=== PATIENT | male | born 1945 | race Caucasian/White ===

== ENCOUNTER 2016-07-14 11:28 | Inpatient (IN) | payer OTHER, MEDICARE ==
[~2016-07-14] VITALS: Ht 175.3 cm; Wt 81.6 kg
[~2016-07-14 11:28] MED LIST: ASPIRIN EC81 M1 PO; ENSURE LIQUID237 ML PO; FLOMAX0.4 M1 PO; LEVEMIR FL100 UNIT/1 SC; LIPITOR10 M1 PO; NOVOLOG MI100 UNIT/2 SC; NOVOLOG100 UNIT/2 SC; SERTRALINE HCL50 MG PO; SYNTHROID25 MCG PO; SYNTHROID50 MCG PO; VITAMIN D31000 UNI1 PO; ZOLOFT50 M1 PO
--- NOTE | 2016-07-14 11:54 | ED GI/GU/ABDOMINAL COMPLAINT ---
History of Present Illness General Chief Complaint: Male Genitourinary Problems Stated Complaint: UNABLE TO VOID Source: patient, old records Exam Limitations: no limitations Allergies Coded Allergies: NO KNOWN ALLERGIES (10/26/15) Reconcile Medications Aspirin (Ecotrin*) 81 MG TABLET.DR 2 TAB PO DAILY HEART/BLOOD (Reported) Atorvastatin Calcium (Lipitor) 10 MG TABLET 1 TAB PO DAILY HYPERLIPIDEMIA Insulin Aspart Protam & Aspart (Novolog Mix 70-30 Vial) 100 UNIT/ML (70-30) VIAL 20 UNITS SC QAM DM (Reported) Insulin Aspart Protam & Aspart (Novolog Mix 70-30 Vial) 100 UNIT/ML (70-30) VIAL 10 UNITS SC QPM DM (Reported) Levothyroxine Sodium 75 MCG TABLET 1 TAB PO DAILY AC THYROID (Reported) Sertraline HCl (Zoloft) 50 MG TABLET 1 TAB PO DAILY MENTAL HEALTH (Reported) Tamsulosin HCl (Flomax) 0.4 MG CAP.ER.24H 1 TAB PO DAILY PROSTATE (Reported) Triage Note: PT TO ED WITH C/O "I JUST PEE A FEW DROPS". PT ALSO STATING "I THINK MY SUGAR IS NO GOOD EITHER". ACCUCHECK: 400 "I HAVEN'T HAD MY INSULIN IN A COUPLE OF WEEKS, I DON'T HAVE THE MONEY FOR IT". PT VERY WEEPY IN TRIAGE. Triage Nurses Notes Reviewed? yes Onset: Abrupt Duration: week(s): (3), constant Timing: recent history Quality/Severity: URNGECY Severity Numbers: 5 Location: urethral Radiation: no radiation Activities at Onset: none Prior Abdominal Problems: similar symptoms No Modifying Factors: none HPI: 70-year-old male type I diabetic hypothyroid depression presents emergency room for evaluation complain of urinary urgency and retention for the past 3 weeks. The patient reports history of similar episodes earlier this year for which required a Lemus catheter. The patient states that he is having difficulty urinating up until when he was in waiting room when he was able to P on his own. He states at times he felt diaphoretic and nauseous. He states he's been without his medications for the past 1 month because he cannot afford them. He denies abdominal pain chest pain palpitations shortness of breath fever or chills. No hematuria no dysuria no penile or scrotal pain (HALINA SAEZ) Vital Signs & Intake/Output Vital Signs & Intake/Output Vital Signs Date Time Temp Pulse Resp B/P Pulse O2 O2 Flow FiO2 Ox Delivery Rate 07/14 1257 Room Air 07/14 1137 98.8 87 20 174/84 97 Room Air Room Air Past History Travel History Traveled to [place] past 21 day No Medical History Any Pertinent Medical History? 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 No (HALINA SAEZ) Review of Systems Review of Systems Constitutional: Reports: see HPI. All Other Systems: Reviewed and Negative Comments Review of systems: See HPI, All other systems negative. Constitutional, no chills no fever, no malaise HEENT: No visual changes no sore throat no congestion Cardiovascular: No chest pain , no palpitation Skin, no rashes, no change in skin Respiratory: No dyspnea no cough no sputum GI: nausea no vomiting, no diarrhea, no bloating/constipation : SEE HPI Muscle skeletal: No joint pain, no back pain, no neck pain, Neurologic: No numbness no confusion, no headache Psych: No stress Heme/endocrine: No bruising no bleeding Immunology: No lymphadenopathy (HALINA SAEZ) Physical Exam Physical Exam General Appearance: well developed/nourished, no apparent distress, alert Gastrointestinal: soft Comments: Well-developed well-nourished person in no acute distress HEENT: Normal EENT exam; PERRL, EOMI, HEAD is atraumatic. moist mucous membranes. Neck: Supple,normal range of motion Back: Nontender, no CVA tenderness. Full range of motion Cardiovascular: Regular rate and rhythms no murmurs rubs Respiratory: No respiratory distress. Patient speaking in full complete sentences. Breath sounds clear to auscultation bilaterally: NO W/R/R Abdomen: Soft, nontender nondistended, no appreciable organomegaly. Normal bowel sounds. No rebound/guarding, Extremity: No edema, full range of motion of extremities Neuro: Alert oriented x3, motor sensory normal, There were no obvious focal neurologic abnormalities. Skin: No appreciable rash on exposed skin, skin is warm and dry. Psych: Mood and affect is normal, memory and judgment is normal. Core Measures ACS in differential dx? No Severe Sepsis Present: No Septic Shock Present: No (HALINA SAEZ) Progress Differential Diagnosis: pyelonephritis, DKA,HHS, MALIGNANCY, BPH, NEUROGENIC BLADDER, GIUILANA, ELECTROLYTE ABNORMALITY Initial ED EKG: normal intervals, normal p-waves, normal QRS complex, normal sinus rhythm (80), NSR (HALINA SAEZ) Plan of Care: Orders Procedure Date/time Status Consistent Carbohydrate 1 07/15 B Active Patient Data 07/14 1621 Active Misc Message 07/14 1605 Active ED Holding Orders 07/14 1605 Active Admit to inpatient 07/14 1605 Active Vital Signs 07/14 1605 Active Code Status 07/14 1605 Active FingerStick- Glucose 07/14 1529 Active Intake & Output 07/14 1514 Active BASIC METABOLIC PANEL 07/14 1500 Complete Add-on Test (ER Only) 07/14 1357 Active EKG 07/14 1357 Active Add-on Test (ER Only) 07/14 1352 Active CULTURE,URINE 07/14 1304 Active TROPONIN LEVEL 07/14 1302 Complete URINALYSIS 07/14 1151 Complete SERUM OSMOLALITY 07/14 1151 Complete COMPREHENSIVE METABOLIC PANEL 07/14 1151 Complete CBC WITHOUT DIFFERENTIAL 07/14 1151 Complete ACETONE 07/14 1151 Complete Laboratory Tests 07/14/16 1532: Anion Gap 12, Estimated GFR > 60, BUN/Creatinine Ratio 20.0, Glucose 241 H, Calcium 8.8 07/14/16 1304: Urine Color YEL, Urine Clarity HAZY H, Urine pH 6.0, Ur Specific [place] 1.010, Urine Protein NEG, Urine Ketones 40 H, Urine Nitrite POS H, Urine Bilirubin NEG, Urine Urobilinogen 0.2, Ur Leukocyte Esterase SMALL H, Ur Microscopic SEDIMENT EXAMINED, Urine RBC 5-10 H, Urine WBC 25-50 H, Ur Epithelial Cells FEW, Urine Hemoglobin MOD H, Urine Glucose >=1000 H 07/14/16 1302: Anion Gap 21 H, Estimated GFR > 60, BUN/Creatinine Ratio 20.0, Glucose 456 H, Serum Osmolality 299 H, Calcium 9.5, Total Bilirubin 0.8, AST 19, ALT 25, Alkaline Phosphatase 124, Troponin I < 0.01, Total Protein 7.3, Albumin 4.0, Globulin 3.3, Albumin/Globulin Ratio 1.2, CBC w Diff NO MAN DIFF REQ, RBC 4.74, MCV 81.1, MCH 27.9, RDW 13.1, MPV 7.6, Gran % 72.2, Lymphocytes % 21.8, Monocytes % 5.1, Eosinophils % 0.6, Basophils % 0.3, Absolute Granulocytes 4.9, Absolute Lymphocytes 1.5, Absolute Monocytes 0.3, Absolute Eosinophils 0, Absolute Basophils 0, PUBS MCHC 34.4, Acetone Level POSITIVE AT 1:16 DIL Microbiology 07/14 1304 URINE ROUT: Urine Culture - RECD IV fluids running labs ordered patient is able to urinate on his own at this time Corrected sodium 139 Discussed the patient all his lab results insulin 8 units subcutaneous ordered case discussed with Dr. Ring who evaluated the patient agrees with plan. We'll admit the patient the hospitalist case was discussed with DR AGUILAR (HALINA SAEZ) Departure Departure Time of Disposition: 1402 Disposition: STILL A PATIENT Condition: Stable Clinical Impression Primary Impression: DKA (diabetic ketoacidoses) Referrals: VASQUEZ KOHLER,VASILE Chris (PCP/Family) Referred to [facility] as new patient No Departure Forms: Customer Survey General Discharge Information Admission Note Spoke With: JANE AGUILAR MD Documentation of Exam: Documentation of any treatments & extenuating circumstances including Concerns Regarding Discharge (functional status, medication knowledge or non-compliance, living conditions, etc.) that warrant an admission rather than observation: IV INSULIN, TREND LABS, CONTINUING CARE CONSULT GIVEN PT HAS BEEN WITHOOUT HIS MEDS X 3 WEEKS, PREMATURE DISCHARGE WOULD BE MEDICALLY HARMFUL (HALINA SAEZ) PA/ASPHALT PATCHER Co-Sign Statement Statement: ED Attending supervision documentation- [X] I saw and evaluated the patient. I have also reviewed all the pertinent lab results and diagnostic results. I agree with the findings and the plan of care as documented in the PA's/ASPHALT PATCHER's documentation. [] I have reviewed the ED Record and agree with the PA's/ASPHALT PATCHER's documentation. [] Additions or exceptions (if any) to the PAs/ASPHALT PATCHER's note and plan are summarized below: [] (BRITTANY KOHLER,[place]OR[place] Carranza)
[2016-07-14 13:34] LABS: ABSOLUTE BASOPHIL COUNT 0 /CUMM (0.0-0.2); ABSOLUTE EOSINOPHIL COUNT 0 /CUMM (0.0-0.7); ABSOLUTE GRANULOCYTE CT 4.9 /CUMM (1.4-6.5); ABSOLUTE LYMPH COUNT 1.5 /CUMM (1.2-3.4); ABSOLUTE MONOCYTE COUNT 0.3 /CUMM (0.10-0.60); BASOPHIL % 0.3 % (0.0-2.0); EOSINOPHIL % 0.6 % (0-5); GRANULOCYTE % 72.2 % (42.2-75.2); HEMATOCRIT 38.5 % (42-52); MEAN CORPUSCULAR HGB 27.9 PG (27.0-31.0); MEAN CORPUSCULAR HGB CONC 34.4 G/DL (33.0-37.0); MEAN CORPUSCULAR VOLUME 81.1 FL (80.0-94.0); MEAN PLATELET VOLUME 7.6 FL (7.4-10.4); PLATELET COUNT 287 /CUMM (130-400); RBC DISTRIBUTION WIDTH 13.1 % (11.5-14.5); RED BLOOD CELL CT 4.74 /CUMM (4.70-6.10); WHITE BLOOD CELL COUNT 6.8 /CUMM (4.8-10.8)
[2016-07-14] MEDS ORDERED: LEVOTHYROXINE75 MCG PO (15:42)
[2016-07-14] MEDS ORDERED: NOVOLOG MI100 UNIT/1 SC ×2 (15:43)
--- NOTE | 2016-07-14 16:21 | History & Physical ---
ALEJANDRINA MIN 07/14/16 1621: General Information and HPI MD Statement: I have seen and personally examined DELIO SKAGGS and documented this H&P. The patient is a 70 year old M who presented with a patient stated chief complaint of increased urinary frequency Source of Information: family, old records Exam Limitations: no limitations History of Present Illness: 69-year-old gentleman with past medical history of type 1 diabetes, hypothyroidism, BPH, depression came to Ed for evaluation of increased frequency of urination. States that he has noticed a decrease in urination since the past 2 weeks. Today there has been increased frequency of urination. He is compliant with a diabetic diet. Reports non complaince with diabetic meds since the past three weeks. He did not check his fingersticks at home either. denies abdominal pain, dysuria, fever, chills, shortness of breath, nausea or vomitting. Allergies/Medications Allergies: Coded Allergies: NO KNOWN ALLERGIES (10/26/15) Home Med list Aspirin (Ecotrin*) 81 MG TABLET.DR 2 TAB PO DAILY HEART/BLOOD (Reported) Atorvastatin Calcium (Lipitor) 10 MG TABLET 1 TAB PO DAILY HYPERLIPIDEMIA Insulin Aspart Protam & Aspart (Novolog Mix 70-30 Vial) 100 UNIT/ML (70-30) VIAL 20 UNITS SC QAM DM (Reported) Insulin Aspart Protam & Aspart (Novolog Mix 70-30 Vial) 100 UNIT/ML (70-30) VIAL 10 UNITS SC QPM DM (Reported) Levothyroxine Sodium 75 MCG TABLET 1 TAB PO DAILY AC THYROID (Reported) Sertraline HCl (Zoloft) 50 MG TABLET 1 TAB PO DAILY MENTAL HEALTH (Reported) Tamsulosin HCl (Flomax) 0.4 MG CAP.ER.24H 1 TAB PO DAILY PROSTATE (Reported) Compliance With Home Meds: POOR Past History Travel History Traveled to [place] past 21 day No Medical History Neurological: NONE EENT: NONE Cardiovascular: NONE Respiratory: NONE Gastrointestinal: NONE Hepatic: NONE Renal: benign prost hyperplasia Musculoskeletal: NONE Psychiatric: depression Endocrine: hypothyroidism, DM type 1 Blood Disorders: NONE 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 Cardiovascular: Denies: chest pain, edema, orthopena, palpitations, peripheral edema, syncope. Respiratory: Denies: cough, hemoptysis, orthopnea, short of breath, sputum production, stridor, wheezing. GI: Denies: abdominal pain, bloating, constipation, diarrhea, distention, bowel incontinence, melena, nausea, bloody stool, changes in stool, vomiting, steatorrhea. Genitourinary: Denies: discharge, dysuria, frequency, hematuria, hesitation, nocturia, pain, urgency. Exam & Diagnostic Data Last 24 Hrs of Vital Signs/I&O Vital Signs Date Time Temp Pulse Resp B/P Pulse O2 O2 Flow FiO2 Ox Delivery Rate 07/14 2219 97.6 68 20 120/50 96 Room Air 07/14 1842 97.4 62 20 124/60 96 Room Air 07/14 1722 96.8 66 18 120/65 98 Room Air 07/14 1257 Room Air 07/14 1137 98.8 87 20 174/84 97 Room Air Room Air Intake & Output 07/14 1600 07/14 0800 07/14 0000 Intake Total 1000 Output Total 375 Balance 625 Intake, IV 1000 Output, Urine 375 Patient 180 lb Weight Physical Exam General Appearance Alert, Oriented X3, Cooperative, No Acute Distress HEENT Atraumatic, PERRLA, EOMI, Mucous Membr. moist/pink Cardiovascular Regular Rate, Normal S1, Normal S2 Lungs Clear to Auscultation, Normal Air Movement Abdomen Normal Bowel Sounds, Soft, No Tenderness Extremities No Edema Assessment/Plan Assessment: 69-year-old gentleman with past medical history of type 1 diabetes, hypothyroidism, BPH, depression came to Ed for evaluation of increased frequency of urination,found to have Sugar level of 465 with anion gap of 21 which improved after iVF and insuin As Ranked By This Provider Problem List: 1. Hyperglycemia Assessment/Plan monitor FS will start basal insuin and ISS Endo consulted obtain HA1c 2. UTI (urinary tract infection) Assessment/Plan will start IV Ceftriaxone pending cultures 3. BPH (benign prostatic hyperplasia) Assessment/Plan continue flomax obtain post-residual bladder scan urology informed 4. DVT prophylaxis 5. DNI (do not intubate) 6. DNR (do not resuscitate) Core Measures/Miscellaneous Acute Coronary Syndrome ACS Diagnosis: No Cerebrovascular Accident CVA/TIA Diagnosis: No Congestive Heart Failure CHF Diagnosis: No Venous Thromboembolism VTE Risk Factors: Acute medical illness, Age > 40 VTE Prophylaxis Ordered Inpt: Pharm- Lovenox No Mech VTE prophylaxis d/t: No contraindications No VTE Pharm Prophylaxis d/t: No contraindications VTE Diagnosis: No VTE Type: NONE VTE Confirmed by (Test): NONE Severe Sepsis Severe Sepsis Present: No Septic Shock Septic Shock Present: No Miscellaneous Documentation Attending Case Discussed With: JANE AGUILAR MD Primary Care Physician: VASILE OVALLE MD Patient sees these Specialists Dr. Hall Level of Patient Care: General Medicine ROSLYN JIM MD 07/14/16 2000: Resident Review Statement Resident Statement: examined this patient, discussed with internet retailer, agreed with internet retailer Other Findings: Is a 70-year-old male with past medical history of type 1 diabetes, BPH, depression, hypothyroidism who presented to the ED with complaints of increased frequency of urination and weakness. He claims that he has not been using his insulin because of inability to afford it. He last saw Dr. hall 2 months ago and was scheduled to see her today. In the ED, labs showed a high blood sugar level of 465 with anion gap of 21. Patient was given 8 units of insulin and fluids. Repeat BEP showed a closed and last blood sugar level was in the 200s. Problem list: * Hyperglycemia * Urinary tract infection * Hypokalemia * Hypothyroidism * Depression * BPH Plan: * Admit to general medicine. * Endocrine consult. Dr. Hall called back and wanted the patient on 10 units of Levemir twice a day and NovoLog sliding scale. * Ceftriaxone for UTI. Urine cultures * Pain pathway: Tylenol when necessary * DVT prophylaxis: SubQ Lovenox * Code Status: Full Code JOLEEN HENDERSON 07/14/16 2252: Attending MD Review Statement Attending Statement Attending MD Statement: examined this patient, discuss w/resident/PA/CASEWORKER, agreed w/resident/PA/CASEWORKER, reviewed EMR data (avail), reviewed images, amended to note Attending Assessment/Plan: CC : elevated Blood glucose PMHx: DM (insulin dependent), hypothyroidism, depression, BPH Patient came to ER for urinary complaints and elevated blood sugar. Patient says that he cannot afford insulin and was not taking insulin since 1 month. He has been having chronic urinary complaints since many months. Initially he had urinary retention for which he had Lemus catheter in place, then by urologist. Catheter fell off by itself about 3 months back and patient did not follow-up with urologist thereafter. Patient has been experiencing increased frequency of urination during the night, waking up every hour. He denies any burning irritation in urine or lower abdominal pain. He had difficulty voiding in last couple of days but today it is much better. His appetite was markedly decreased and had some fatigue along with nausea. No fevers or chills. 14 point ROS negative. Other than insulin, which he cannot afford, he had been compliant with his rest of the medications including tamsulosin, levothyroxine, sertraline. Vitals: Afebrile, RR, HR, BP, post O2 saturation within acceptable range, on room air. On examination: A O 3, no apparent distress, no respiratory distress, no JVD, no lymphadenopathy, mucosa moist pink, no dependent edema. CVS: S1-S2, RRR. RS : Clear air entry bilaterally present. Abdomen: Soft, NT, ND, bowel sounds present. No focal neurological deficit. Genitourinary examination unremarkable. Labs: Hemoglobin 13.2, and sodium 128 on presentation improved to 132. Patient had an anion gap of 21 improved to 12. On presentation his glucose was 456 improved with subcutaneous insulin to 241, creatinine, troponin, liver function tests normal. UA shows evidence of nitrites and leukocyte esterase. Urine positive for acetone. A and P #1 DKA: At presentation, improved with IV hydration and insulin. Anion gap Closed blood sugar better controlled. #2 DM, insulin dependence: Uncontrolled secondary to Noncompliance secondary because of cost issues, resume insulin ( basal and bolus) according to Dr. hall. Check CBC BMP in a.m. #3 UA positive for UTI: Patient does not have any burning, irritation but complains of increased frequency and has urinary retention intermittently secondary to BPH, given in setting of diabetes and would suggest to get urine culture and start ceftriaxone. Can be changed to by mouth antibiotics according to the cultures, upon discharge. # 4 urinary complaints: Patient had known BPH, GERD post void bladder scan, inform urology about patient being here. Patient may need a Lemus catheter if retaining on bladder scan. #5 DVT prophylaxis with Lovenox. Adequate pain control with pain pathway.
[2016-07-14 18:42] VITALS: BP 124/60
[2016-07-14 22:19] VITALS: BP 120/50
--- NOTE | 2016-07-14 22:55 | Admission Certification ---
Admission Certification Certification Statement - As attending physician, I certify that at the time of - admission, based on clinical presentation, severity of - symptoms, need for further diagnostic testing and - therapeutic interventions, and risk of adverse outcomes - without in-hospital treatment, in my clinical assessment, - this patient requires an acute hospital stay for a minimum - of two nights or longer. I have also considered psychsocial - factors such as support system, advanced age, financial - issues, cognitive issues, and failed out-patient treatments, - past re-admission history, safety of patient, and lack of - compliance as applicable. Specific rationale supporting this admission is: Hyperglycemia with insulin-dependent diabetes, urinary complaints with history of BPH along with UTI
--- NOTE | 2016-07-15 06:26 | PN- Housestaff ---
DIANDRA KOHLER,ROSLYN 07/15/16 0622: Subjective Follow-up For: Hyperglycemia Review of Systems Constitutional: Reports: see HPI. Objective Last 24 Hrs of Vital Signs/I&O Vital Signs Date Time Temp Pulse Resp B/P Pulse O2 O2 Flow FiO2 Ox Delivery Rate 07/14 2219 97.6 68 20 120/50 96 Room Air 07/14 1842 97.4 62 20 124/60 96 Room Air 07/14 1722 96.8 66 18 120/65 98 Room Air 07/14 1257 Room Air 07/14 1137 98.8 87 20 174/84 97 Room Air Room Air Intake & Output 07/15 0800 07/15 0000 07/14 1600 Intake Total 400 1000 Output Total 400 375 Balance 0 625 Intake, IV 200 1000 Intake, Oral 200 Output, Urine 400 375 Patient 180 lb 180 lb Weight Physical Exam General Appearance: Alert, Oriented X3, Cooperative, No Acute Distress Cardiovascular: Regular Rate, Normal S1, Normal S2, No Murmurs Lungs: Clear to Auscultation, Normal Air Movement Abdomen: Normal Bowel Sounds, Soft, No Tenderness Neurological: Normal Speech, Normal Tone, Sensation Intact Extremities: No Edema Current Medications: Current Medications Sig/Marleny Start time Last Medication Dose Route Stop Time Status Admin Acetaminophen 650 MG Q4P PRN 07/14 2100 AC 07/14 PO 2100 Aspirin Buffered 162 MG DAILY 07/15 1000 AC PO Atorvastatin Calcium 10 MG DAILY 07/15 1000 AC PO Enoxaparin Sodium 40 MG DAILY 07/15 1000 AC SC Insulin Aspart 0 TIDAC/HS 07/14 2100 AC SC Insulin Detemir 10 UNITS BID 07/14 2200 AC 07/14 SC 2135 Insulin Human Regular 8 UNITS ONCE ONE 07/14 1400 DC 07/14 SC 07/14 1401 1412 Levothyroxine Sodium 0.075 MG DAILY AC 07/15 0700 AC 07/15 PO 0553 Patient Medication 1 UNIT ONE NR 07/14 1915 DC Teaching ED 07/14 1930 Potassium Chloride 40 MEQ Q10H 07/14 191 AC 07/15 Sodium Chloride 1,000 ML IV 07/15 1514 0556 Potassium Chloride 40 MEQ .Q10H 07/14 1845 DC Sodium Chloride 1,000 ML IV 07/15 1444 Sertraline HCl 50 MG DAILY 07/15 1000 AC PO Sodium Chloride 1,000 ML BOLUS ONE 07/14 1400 DC 07/14 IV 07/14 1459 1412 Sodium Chloride 1,000 ML BOLUS ONE 07/14 1400 DC 07/14 IV 07/14 1459 1519 Tamsulosin HCl 0.4 MG DAILY 07/15 1000 AC PO Last 24 Hrs of Lab/Michael Results Last 24 Hrs of Labs/Mics: Laboratory Tests 07/14/16 1532: Anion Gap 12, Estimated GFR > 60, BUN/Creatinine Ratio 20.0, Glucose 241 H, Calcium 8.8, TSH 3.290 07/14/16 1304: Urine Color YEL, Urine Clarity HAZY H, Urine pH 6.0, Ur Specific [place] 1.010, Urine Protein NEG, Urine Ketones 40 H, Urine Nitrite POS H, Urine Bilirubin NEG, Urine Urobilinogen 0.2, Ur Leukocyte Esterase SMALL H, Ur Microscopic SEDIMENT EXAMINED, Urine RBC 5-10 H, Urine WBC 25-50 H, Ur Epithelial Cells FEW, Urine Hemoglobin MOD H, Urine Glucose >=1000 H 07/14/16 1302: Anion Gap 21 H, Estimated GFR > 60, BUN/Creatinine Ratio 20.0, Glucose 456 H, Serum Osmolality 299 H, Calcium 9.5, Total Bilirubin 0.8, AST 19, ALT 25, Alkaline Phosphatase 124, Troponin I < 0.01, Total Protein 7.3, Albumin 4.0, Globulin 3.3, Albumin/Globulin Ratio 1.2, CBC w Diff NO MAN DIFF REQ, RBC 4.74, MCV 81.1, MCH 27.9, RDW 13.1, MPV 7.6, Gran % 72.2, Lymphocytes % 21.8, Monocytes % 5.1, Eosinophils % 0.6, Basophils % 0.3, Absolute Granulocytes 4.9, Absolute Lymphocytes 1.5, Absolute Monocytes 0.3, Absolute Eosinophils 0, Absolute Basophils 0, PUBS MCHC 34.4, Acetone Level POSITIVE AT 1:16 DIL Microbiology 07/14 1304 URINE ROUT: Urine Culture - RECD Lines/Diet/Fluids Lines: peripheral lines Assessment/Plan Assessment: Is a 70-year-old male with past medical history of type 1 diabetes, BPH, depression, hypothyroidism who presented to the ED with complaints of increased frequency of urination and weakness. He claims that he has not been using his insulin because of inability to afford it. He last saw Dr. hall 2 months ago and was scheduled to see her today. In the ED, labs showed a high blood sugar level of 465 with anion gap of 21. Patient was given 8 units of insulin and fluids. Repeat BEP showed a closed and last blood sugar level was in the 200s. Problem list: * Hyperglycemia * Urinary tract infection * Hypokalemia * Hypothyroidism * Depression * BPH Plan: * Last fingersticks showed 196, 196, 145. * Continue Levemir 10 ubnits BID with Novolog Sliding scale per Dr. Hall * Afebrile overnight. Ceftriaxone IV for UTI. Urine cultures pending. * Continue home statin, LT4 and sertraline. * Pain pathway: Tylenol when necessary * DVT prophylaxis: SubQ Lovenox * Code Status: Full Code Problem List: 1. Hyperglycemia Pain Ratin Pain Location: None Pain Goal: Pain 4 or less Pain Plan: Per EMR Tomorrow's Labs & Rationales: BEP DVT/Prophylaxis: pharmacological JOHNNY KOHLER[facility] 07/15/16 1325: Attending MD Review Statement Attending Statement Attending MD Statement: examined this patient, discuss w/resident/PA/UNDERWRITING CLERKS SUPERVISOR, agreed w/resident/PA/UNDERWRITING CLERKS SUPERVISOR, reviewed EMR data (avail), discussed with nursing, discussed with case mgmt, amended to note Attending Assessment/Plan: Patient seen and examined. Resting comfortably and not in acute distress. His blood glucose level has improved this morning. He offers no complaints. Physical exam is currently benign. We will continue him on his current insulin regimen and will follow-up with the endocrinology service for further recommendations. Patient reports that he was unable to obtain his insulin at home due to insurance reasons. We'll follow-up with the case management service prior to discharge.
[2016-07-15 07:24] VITALS: BP 132/76
[2016-07-15 08:09] LABS: ABSOLUTE BASOPHIL COUNT 0 /CUMM (0.0-0.2); ABSOLUTE EOSINOPHIL COUNT 0.1 /CUMM (0.0-0.7); ABSOLUTE GRANULOCYTE CT 3.8 /CUMM (1.4-6.5); ABSOLUTE LYMPH COUNT 1.6 /CUMM (1.2-3.4); ABSOLUTE MONOCYTE COUNT 0.5 /CUMM (0.10-0.60); BASOPHIL % 0.6 % (0.0-2.0); GRANULOCYTE % 62.8 % (42.2-75.2); HEMATOCRIT 36.4 % (42-52); MEAN CORPUSCULAR HGB 28.4 PG (27.0-31.0); MEAN CORPUSCULAR HGB CONC 34.3 G/DL (33.0-37.0); MEAN CORPUSCULAR VOLUME 82.9 FL (80.0-94.0); MEAN PLATELET VOLUME 7.7 FL (7.4-10.4); PLATELET COUNT 276 /CUMM (130-400); RBC DISTRIBUTION WIDTH 13.2 % (11.5-14.5); RED BLOOD CELL CT 4.39 /CUMM (4.70-6.10); WHITE BLOOD CELL COUNT 6.1 /CUMM (4.8-10.8)
--- NOTE | 2016-07-15 13:44 | Cons- Endocrinology ---
General Information and HPI Consulting Request Date of Consult: 07/15/16 Requested By: medical team Reason for Consult: management of DM Source of Information: patient, old records Exam Limitations: no limitations History of Present Illness: 69-year-old gentleman with past medical history of type 1 diabetes, hypothyroidism, BPH, depression came to Ed for evaluation of having difficulty in urination. He was found to have glucose level of > 400. As per patient, due to financial situation, he was off on insulin for a while. In hospital, he was put on Levemir 10 units twice a day, Novolog coverage before meals and Novolog coverage at bedtime. In addition, he is on NS with KCL at 100 ml/hour. His FSGs were 402, 310, 145, 196, 202 and 131. Allergies/Medications Allergies: Coded Allergies: NO KNOWN ALLERGIES (10/26/15) Home Med List: Aspirin (Ecotrin*) 81 MG TABLET.DR 2 TAB PO DAILY HEART/BLOOD (Reported) Atorvastatin Calcium (Lipitor) 10 MG TABLET 1 TAB PO DAILY HYPERLIPIDEMIA Insulin Aspart Protam & Aspart (Novolog Mix 70-30 Vial) 100 UNIT/ML (70-30) VIAL 20 UNITS SC QAM DM (Reported) Insulin Aspart Protam & Aspart (Novolog Mix 70-30 Vial) 100 UNIT/ML (70-30) VIAL 10 UNITS SC QPM DM (Reported) Levothyroxine Sodium 75 MCG TABLET 1 TAB PO DAILY AC THYROID (Reported) Sertraline HCl (Zoloft) 50 MG TABLET 1 TAB PO DAILY MENTAL HEALTH (Reported) Tamsulosin HCl (Flomax) 0.4 MG CAP.ER.24H 1 TAB PO DAILY PROSTATE (Reported) Review of Systems Review of Systems Constitutional: Reports: see HPI. Cardiovascular: Denies: chest pain. Respiratory: Denies: orthopnea, short of breath. GI: Denies: abdominal pain. Genitourinary: Reports: see HPI. Hematologic/Endocrine: Reports: see HPI. 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 Home Services at Home: None Smoking Status: Never Smoked ETOH Use: denies use Illicit Drug Use: denies illicit drug use Exam & Diagnostic Data Last 24 Hrs of Vital Signs/I&O Vital Signs Date Time Temp Pulse Resp B/P Pulse O2 O2 Flow FiO2 Ox Delivery Rate 07/15 0921 72 132/80 07/15 0724 97.6 66 18 132/76 98 Room Air 07/14 2219 97.6 68 20 120/50 96 Room Air 07/14 1842 97.4 62 20 124/60 96 Room Air 07/14 1722 96.8 66 18 120/65 98 Room Air Intake & Output 07/15 1600 07/15 0800 07/15 0000 Intake Total 900 400 Output Total 525 400 Balance 375 0 Intake, IV 800 200 Intake, Oral 100 200 Output, Urine 525 400 Patient 180 lb Weight Physical Exam General Appearance: no apparent distress Neck: normal inspection Respiratory: lungs clear Cardiovascular: regular rate/rhythm Gastrointestinal: normal bowel sounds, soft, non-tender Extremities: no edema Labs/Michael Results: Laboratory Tests 07/15 07/14 0600 1532 Chemistry Sodium (137 - 145 mmol/L) 135 L 132 L Potassium (3.5 - 5.1 mmol/L) 3.9 3.1 L Chloride (98 - 107 mmol/L) 98 92 L Carbon Dioxide (22 - 30 mmol/L) 29 28 Anion Gap (5 - 16) 8 12 BUN (9 - 20 mg/dL) 14 16 Creatinine (0.7 - 1.2 mg/dL) 0.8 0.8 Estimated GFR (>60 ml/min) > 60 > 60 BUN/Creatinine Ratio (7 - 25 %) 17.5 20.0 Glucose (65 - 99 mg/dL) 241 H Calcium (8.4 - 10.2 mg/dL) 8.8 TSH (0.270 - 4.200 uIU/mL) 3.290 Hematology CBC w Diff NO MAN DIFF REQ WBC (4.8 - 10.8 /CUMM) 6.1 RBC (4.70 - 6.10 /CUMM) 4.39 L Hgb (14.0 - 18.0 G/DL) 12.5 L Hct (42 - 52 %) 36.4 L MCV (80.0 - 94.0 FL) 82.9 MCH (27.0 - 31.0 PG) 28.4 RDW (11.5 - 14.5 %) 13.2 Plt Count (130 - 400 /CUMM) 276 MPV (7.4 - 10.4 FL) 7.7 Gran % (42.2 - 75.2 %) 62.8 Lymphocytes % (20.5 - 51.1 %) 26.3 Monocytes % (1.7 - 9.3 %) 8.3 Eosinophils % (0 - 5 %) 2.0 Basophils % (0.0 - 2.0 %) 0.6 Absolute Granulocytes (1.4 - 6.5 /CUMM) 3.8 Absolute Lymphocytes (1.2 - 3.4 /CUMM) 1.6 Absolute Monocytes (0.10 - 0.60 /CUMM) 0.5 Absolute Eosinophils (0.0 - 0.7 /CUMM) 0.1 Absolute Basophils (0.0 - 0.2 /CUMM) 0 PUBS MCHC (33.0 - 37.0 G/DL) 34.3 Assessment/Plan Assessment/Plan 69-year-old gentleman with past medical history of type 1 diabetes, hypothyroidism, BPH, depression came to Ed for evaluation of having difficulty in urination. He was found to have glucose level of > 400. As per patient, due to financial situation, he was off on insulin for a while. He was put on Levemir 10 units twice a day, Novolog coverage before meals and Novolog coverage at bedtime. His FSGs were relatively stable. He will continue the current insulin regimen for now. It is okay to discontinue the IVF at this point. will follow. Consult Acknowledgment - Thank you for your consult request.
[2016-07-15 15:05] VITALS: BP 125/72
[2016-07-15 22:58] VITALS: BP 124/68
[2016-07-16 07:32] VITALS: BP 130/74
--- NOTE | 2016-07-16 10:11 | PN- Att Addend ---
Attending Addendum Attending Brief Note Patient seen and examined. Resting comfortably and not in acute distress. No issues overnight reported by nursing staff. Patient denies chest or shortness of breath. Denies nausea vomiting. Reports good appetite. He denies any urinary symptoms. He is afebrile. Blood cultures are noted to be growing gram-negative rods. Blood glucose levels reviewed. Blood glucose was 180 this morning.. Vital Signs Date Time Temp Pulse Resp B/P Pulse O2 O2 Flow FiO2 Ox Delivery Rate 07/16 0732 97.6 68 18 130/74 98 Room Air 07/15 2258 98.1 65 20 124/68 96 Room Air 07/15 1505 97.2 67 20 125/72 96 Gen. appearance: Not in acute distress Heart: S1-S2 regular Lungs: Clear bilaterally Abdomen: Soft, nontender with normal bowel sounds Extremities: No pedal edema Neurologic: No gross focal deficits. Problems: 1. Uncontrolled diabetes secondary to medication noncompliance (insurance issues) 2. Asymptomatic bacteriuria Plan: -Follow-up with the endocrinology service regarding his insulin regimen. Patient may be discharged home on regimen prescribed by the endocrinology service. He has shows is that his strength will be picking him up today will assist him in obtaining his prescriptions today. He will be following up with Dr. hall as an outpatient if he has any further issues in obtaining his insulin prescriptions. -He denies any urinary symptoms. He has been afebrile with no leukocytosis on labs. Urinary frequency which he had on presentation has resolved. Likely secondary to hyperglycemia at the time of presentation. He has not received antibiotic therapy. We'll continue to hold off on antibiotic therapy.
--- NOTE | 2016-07-16 12:01 | PN- Diabetes ---
Assessment/Plan Assessment: 69-year-old gentleman with past medical history of type 1 diabetes, hypothyroidism, BPH, depression came to Ed for evaluation of having difficulty in urination. He was found to have glucose level of > 400. As per patient, due to financial situation, he was off on insulin for a while. He was put on Levemir 10 units twice a day, Novolog coverage before meals and Novolog coverage at bedtime. His FSGs were 131, 148, 237 and 180. Plan: continue the current insulin regimen for now; monitor FSGs. will follow. Subjective Subjective: He feels much better this morning. Objective Last 24 Hrs of Vital Signs/I&O Vital Signs Date Time Temp Pulse Resp B/P Pulse O2 O2 Flow FiO2 Ox Delivery Rate 07/16 1047 130/74 07/16 0732 97.6 68 18 130/74 98 Room Air 07/15 2258 98.1 65 20 124/68 96 Room Air 07/15 1505 97.2 67 20 125/72 96 Intake & Output 07/16 1600 07/16 0800 07/16 0000 Intake Total 50 450 Output Total 300 401 Balance -250 49 Intake, IV 0 Intake, Oral 50 450 Number 0 Bowel Movements Output, Stool 1 Output, Urine 300 400
--- NOTE | 2016-07-16 13:15 | Cons- Urology ---
General Information and HPI Consulting Request Date of Consult: 07/16/16 Requested By: JANE AGUILAR MD Reason for Consult: 70 YEAR MALE ADMITTED FOR UNSTABLE DIABETES ,URINARY FREQUENCY,BPH, UTI History of Present Illness: 70 YEAR OLD DIABETIC MALE ON FLOMAX 0.4MG FOR BPH UINDER CARE OF DR. WALKER STOPPED USE OF INSULIN 2 WEEKS AGO DEVELOPING URINARY FREQUENCY Allergies/Medications Allergies: Coded Allergies: NO KNOWN ALLERGIES (10/26/15) Home Med List: Aspirin (Ecotrin*) 81 MG TABLET.DR 2 TAB PO DAILY HEART/BLOOD (Reported) Atorvastatin Calcium (Lipitor) 10 MG TABLET 1 TAB PO DAILY HYPERLIPIDEMIA Insulin Aspart Protam & Aspart (Novolog Mix 70-30 Vial) 100 UNIT/ML (70-30) VIAL 20 UNITS SC QAM DM (Reported) Insulin Aspart Protam & Aspart (Novolog Mix 70-30 Vial) 100 UNIT/ML (70-30) VIAL 10 UNITS SC QPM DM (Reported) Levothyroxine Sodium 75 MCG TABLET 1 TAB PO DAILY AC THYROID (Reported) Sertraline HCl (Zoloft) 50 MG TABLET 1 TAB PO DAILY MENTAL HEALTH (Reported) Tamsulosin HCl (Flomax) 0.4 MG CAP.ER.24H 1 TAB PO DAILY PROSTATE (Reported) Past History Medical History Blood Transfusion Hx: No Neurological: NONE EENT: NONE Cardiovascular: NONE Respiratory: NONE Gastrointestinal: NONE Hepatic: NONE Renal: benign prost hyperplasia Musculoskeletal: NONE Psychiatric: depression Endocrine: hypothyroidism, DM type 1 Blood Disorders: NONE 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 Home Services at Home: None Smoking Status: Never Smoked ETOH Use: denies use Illicit Drug Use: denies illicit drug use Exam & Diagnostic Data Vital Signs and I&O Vital Signs Date Time Temp Pulse Resp B/P Pulse O2 O2 Flow FiO2 Ox Delivery Rate 07/16 1047 130/74 07/16 0732 97.6 68 18 130/74 98 Room Air 07/15 2258 98.1 65 20 124/68 96 Room Air 07/15 1505 97.2 67 20 125/72 96 Intake & Output 07/16 1600 07/16 0800 07/16 0000 07/15 1600 07/15 0800 07/15 0000 Intake Total 50 450 1400 900 400 Output Total 300 401 800 525 400 Balance -250 49 600 375 0 Intake, IV 0 800 800 200 Intake, Oral 50 450 600 100 200 Number 0 Bowel Movements Output, Stool 1 Output, Urine 300 400 800 525 400 Patient 180 lb Weight Assessment/Plan Assessment/Plan BLADDER SCAN FOR RESIDUAL REVEALS ELEVATED 128 CC POST VOID RESIDUAL URINE C/S: KLEBSEILLA OXYTOCA UTI HAS HAD PROMINENT NOCTURIA FOR WEEKS ZOLOFT CAN RETARD URINATION IMPRESSION: BPH WITH SECONDARY UTI ADVISE: ANTIBIOTIC E.G. CEFUROXIME 500MG BID X 10 DAYS INCREASE FLOMAX TO 0.8MG DAILY AFTER DINNER DR WALKER TO FOLLOW Consult Acknowledgment - Thank you for your consult request.
[2016-07-16 15:21] VITALS: BP 118/60
--- NOTE | 2016-07-16 21:02 | PN- Housestaff ---
Subjective Follow-up For: klebsiella oxtyoca UTI Subjective: Saw pt at bedside this AM. he stated that he felt better. He stated that he did not have enough money at home to buy his diabetes medication if we discharged him home this AM. We will wait for Dr. Hall to give recs on a more affordable insulin regimen as pt is now willing to use insulin syringe instead of pen. Review of Systems Constitutional: Denies: chills, malaise, weakness. EENTM: Reports: no symptoms. Cardiovascular: Denies: chest pain, palpitations. Respiratory: Denies: cough, short of breath. Gastrointestinal: Denies: abdominal pain, diarrhea, melena. Genitourinary: Reports: no symptoms. Musculoskeletal: Denies: back pain, muscle pain. Objective Last 24 Hrs of Vital Signs/I&O Vital Signs Date Time Temp Pulse Resp B/P Pulse O2 O2 Flow FiO2 Ox Delivery Rate 07/16 1521 97.9 71 20 118/60 98 07/16 1047 130/74 07/16 0732 97.6 68 18 130/74 98 Room Air 07/15 2258 98.1 65 20 124/68 96 Room Air Intake & Output 07/16 1600 07/16 0800 07/16 0000 Intake Total 800 50 450 Output Total 750 300 401 Balance 50 -250 49 Intake, IV 0 Intake, Oral 800 50 450 Number 1 0 Bowel Movements Output, Stool 1 Output, Urine 750 300 400 Physical Exam General Appearance: Alert, Oriented X3, Cooperative, No Acute Distress Skin: No Rashes HEENT: Atraumatic, PERRLA, EOMI Neck: Supple Cardiovascular: Regular Rate, Normal S1, Normal S2, No Murmurs Lungs: Normal Air Movement Abdomen: Soft, No Tenderness Neurological: Normal Speech, Cranial Nerves 3-12 NL Current Medications: Current Medications Sig/Marleny Start time Last Medication Dose Route Stop Time Status Admin Acetaminophen 650 MG Q4P PRN 07/14 2100 AC 07/14 PO 2100 Aspirin Buffered 162 MG DAILY 07/15 1000 AC 07/16 PO 1047 Atorvastatin Calcium 10 MG DAILY 07/15 1000 AC 07/16 PO 1048 Cefuroxime Sodium 500 MG Q12 07/16 2200 AC PO Enoxaparin Sodium 40 MG DAILY 07/15 1000 AC 07/16 SC 1048 Insulin Aspart 0 TIDAC/HS 07/14 2100 AC 07/16 SC 1723 Insulin Detemir 10 UNITS BID 07/14 2200 AC 07/16 SC 1048 Levothyroxine Sodium 0.075 MG DAILY AC 07/15 0700 AC 07/16 PO 0623 Sertraline HCl 50 MG DAILY 07/15 1000 AC 07/16 PO 1047 Tamsulosin HCl 0.8 MG DAILY 07/17 1000 AC PO Tamsulosin HCl 0.4 MG DAILY 07/15 1000 DC 07/16 PO 1047 Assessment/Plan Assessment: Is a 70-year-old male with past medical history of type 1 diabetes, BPH, depression, hypothyroidism who presented to the ED with complaints of increased frequency of urination and weakness. He claims that he has not been using his insulin because of inability to afford it. He last saw Dr. hall 2 months ago and was scheduled to see her today. In the ED, labs showed a high blood sugar level of 465 with anion gap of 21. Patient was given 8 units of insulin and fluids. Repeat BEP showed a closed and last blood sugar level was in the 200s. Problem list: Hyperglycemia: Has had blood glucose in 300s on admission. He states he does not have the necessary resources to buy his insulin at home which is why he stopped taking it for the past month. * Continue Levemir 10 ubnits BID with Novolog Sliding scale per Dr. Hall * Patient requires case management for adequate resources for management of diabetes outpatient Urinary tract infection: Patient is now growing Klebsiella oxytoca in urine. It is possibility that organism is causing his urinary frequency along with his hypoglycemia. * Cefuroxime 500 twice a day for 7 days * Increase Flomax 0.8 mg Hypothyroidism/ Depression/ BPH: Continue home statin, LT4 and sertraline. DVT prophylaxis: SubQ Lovenox Code Status: Full Code Problem List: 1. Depression 2. Hyperglycemia 3. BPH (benign prostatic hyperplasia) Pain Ratin Pain Location: none Pain Goal: Remain pain free Pain Plan: none Tomorrow's Labs & Rationales: none
[2016-07-16 22:45] VITALS: BP 120/64
[2016-07-17 05:56] VITALS: BP 118/70
[2016-07-17 09:57] VITALS: BP 90/60
--- NOTE | 2016-07-17 11:45 | PN- Att Addend ---
Attending Addendum Attending Brief Note Patient seen and examined. Resting comfortably and not in acute distress. No issues overnight reported by nursing staff. He is yet to be discharged today. Patient denies nausea vomiting. Denies abnormal pain. Denies dysuria. Blood glucose levels have been in the 130s to 190s yesterday. Problems: 1. Uncontrolled diabetes secondary to medication noncompliance (insurance issues) 2. Benign prostatic hypertrophy; with urinary retention on admission. Plan: -Patient is medically stable to be discharged today. -Follow-up with endocrinology service for discharge insulin recommendations. -Please provide patient with prescriptions for insulin regimen and supplies. -Please follow-up with the case management service to ensure patient is able to obtain his medications. -Urology consultation appreciated. Flomax dose has been doubled due to his urinary retention. Patient was also started on antibiotic therapy for his bacteriuria. Recommend completing seven-day therapy. Patient should follow-up with the urology service upon discharge.
--- NOTE | 2016-07-17 12:55 | PN- Diabetes ---
Assessment/Plan Assessment: 69-year-old gentleman with past medical history of type 1 diabetes, hypothyroidism, BPH, depression came to Ed for evaluation of having difficulty in urination. He was found to have glucose level of > 400. As per patient, due to financial situation, he was off on insulin for a while. He was put on Levemir 10 units twice a day, Novolog coverage before meals and Novolog coverage at bedtime. His FSGs were 180, 157, 133, 198, 178. Sodium level was 131 this morning. As per team, patient is going home today and he is able to afford insulin in vial, but not the insulin in pen. Plan: 1. continue the current insulin regimen in hospital. 2. discharge plan for DM ---no Levemir and Novolog ---start Humalog 75/25 mix 15 units before breakfast and 12 units before dinner ---monitor FSGs ---f/u in office after discharge. ---repeat electrolyrtes as outpatient. Subjective Subjective: He feels much better. Objective Last 24 Hrs of Vital Signs/I&O Vital Signs Date Time Temp Pulse Resp B/P Pulse O2 O2 Flow FiO2 Ox Delivery Rate 07/17 0957 80 90/60 07/17 0556 97.5 76 20 118/70 98 Room Air 07/16 2245 98.2 78 18 120/64 95 Room Air 07/16 1521 97.9 71 20 118/60 98 Intake & Output 07/17 1600 07/17 0800 07/17 0000 Intake Total 450 Output Total 800 700 Balance -800 -250 Intake, Oral 450 Output, Urine 800 700 Findings Pertinent Lab/Michael Results: Laboratory Tests 07/17 0600 Chemistry Sodium (137 - 145 mmol/L) 131 L Potassium (3.5 - 5.1 mmol/L) 3.9 Chloride (98 - 107 mmol/L) 92 L Carbon Dioxide (22 - 30 mmol/L) 29 Anion Gap (5 - 16) 10 BUN (9 - 20 mg/dL) 14 Creatinine (0.7 - 1.2 mg/dL) 0.7 Estimated GFR (>60 ml/min) > 60 BUN/Creatinine Ratio (7 - 25 %) 20.0
[2016-07-17] MEDS ORDERED: CEFUROXIME250 M1 PO (13:24)
[2016-07-17] MEDS ORDERED: HUMALOG MI100 UNIT/1 SQ (13:24)
--- NOTE | 2016-07-17 13:26 | Patient Discharge Instructions ---
Discharge Instructions General Discharge Information You were seen/treated for: High blood sugars and DKA UTI Watch for these problems: Persistently high blood sugars Urinary frequency Fever Nausea vomiting Chest pain Special Instructions: 1. Follow-up with your PCP 2. Follow-up with Dr. hall in outpatient 3. Kindly monitor your blood sugars closely 4. Please finish your antibiotic 5. Follow up lab work on 07/24/2016. Diet Continue normal diet: No Recommended Diet: Diabetic Activity Full Activity/No Limits: Yes Acute Coronary Syndrome Inclusion Criteria At DC or during hospital stay patient has or had the following: ACS DIAGNOSIS No Discharge Core Measures Meds if any: Prescribed or Continued at Discharge Meds if any: NOT Prescribed or Continued at Discharge Congestive Heart Failure Inclusion Criteria At DC or during hospital stay patient has or had the following: CHF DIAGNOSIS No Discharge Core Measures Meds if any: Prescribed or Continued at Discharge Meds if any: NOT Prescribed or Continued at Discharge Cerebrovascular accident Inclusion Criteria At DC or during hospital stay patient has or had the following: CVA/TIA Diagnosis No Discharge Core Measures Meds if any: Prescribed or Continued at Discharge Meds if any: NOT Prescribed or Continued at Discharge Venous thromboembolism Inclusion Criteria VTE Diagnosis No VTE Type NONE VTE Confirmed by (Test) NONE Discharge Core Measures - Per Current guidelines, there needs to be overlap - treatment for the first 5 days of Warfarin therapy. - If discharged on Warfarin prior to 5 days of - overlap therapy, the patient will need to be - assessed for post discharge needs including - *Post discharge parental anticoagulation - *Warfarin and/or parental anticoagulation education - *Follow up date to check INR post discharge At least 5 days overlap therapy as Inpatient No Meds if any: Prescribed or Continued at Discharge Note: Overlap Therapy is Warfarin and Anticoagulant Meds if any: NOT Prescribed or Continued at Discharge
[2016-07-17] MEDS ORDERED: FLOMAX0.4 M1 PO (13:40)
--- NOTE | 2016-07-17 13:59 | PN- Housestaff ---
Subjective Follow-up For: Heparin was seen in Subjective: At bedside. He said he was doing very well. He said he is ready go home today as long as he was educated on how to use insulin syringe and vial. Juani, his nurse, gave him the necessary education. He'll be going home today. Review of Systems Constitutional: Denies: chills, weakness. EENTM: Reports: no symptoms. Cardiovascular: Denies: chest pain. Respiratory: Denies: short of breath, wheezing. Gastrointestinal: Denies: see HPI, bloating, constipation. Genitourinary: Denies: discharge, frequency, hesitation. Musculoskeletal: Reports: no symptoms. Skin: Denies: dryness, erythema, jaundice. Neurological/Psychological: Reports: no symptoms. Objective Last 24 Hrs of Vital Signs/I&O Vital Signs Date Time Temp Pulse Resp B/P Pulse O2 O2 Flow FiO2 Ox Delivery Rate 07/17 0957 80 90/60 07/17 0556 97.5 76 20 118/70 98 Room Air 07/16 2245 98.2 78 18 120/64 95 Room Air 07/16 1521 97.9 71 20 118/60 98 Intake & Output 07/17 1600 07/17 0800 07/17 0000 Intake Total 600 450 Output Total 400 800 700 Balance 200 -800 -250 Intake, Oral 600 450 Number 0 Bowel Movements Output, Urine 400 800 700 Physical Exam General Appearance: Alert, Oriented X3, Cooperative, No Acute Distress Skin: No Rashes, No Breakdown HEENT: Atraumatic, PERRLA Neck: No JVD Cardiovascular: Regular Rate, Normal S1, Normal S2 Lungs: Clear to Auscultation Abdomen: Soft, No Tenderness Neurological: Normal Gait, Normal Speech, Sensation Intact Extremities: No Cyanosis, No Edema Vascular: Normal Pulses Current Medications: Current Medications Sig/Marleny Start time Last Medication Dose Route Stop Time Status Admin Acetaminophen 650 MG Q4P PRN 07/14 2100 AC 07/14 PO 2100 Aspirin Buffered 162 MG DAILY 07/15 1000 AC 07/17 PO 0957 Atorvastatin Calcium 10 MG DAILY 07/15 1000 AC 07/17 PO 0957 Cefuroxime Sodium 500 MG Q12 07/16 2200 AC 07/17 PO 0957 Enoxaparin Sodium 40 MG DAILY 07/15 1000 AC 07/17 SC 0958 Insulin Aspart 0 TIDAC/HS 07/14 2100 AC 07/17 SC 1128 Insulin Detemir 10 UNITS BID 07/14 2200 AC 07/17 SC 0956 Levothyroxine Sodium 0.075 MG DAILY AC 07/15 0700 AC 07/17 PO 0607 Sertraline HCl 50 MG DAILY 07/15 1000 AC 07/17 PO 0957 Tamsulosin HCl 0.8 MG DAILY 07/17 1000 AC 07/17 PO 0957 Tamsulosin HCl 0.4 MG DAILY 07/15 1000 DC 07/16 PO 1047 Last 24 Hrs of Lab/Michael Results Last 24 Hrs of Labs/Mics: Laboratory Tests 07/17/16 0600: Anion Gap 10, Estimated GFR > 60, BUN/Creatinine Ratio 20.0 Assessment/Plan Assessment: Is a 70-year-old male with past medical history of type 1 diabetes, BPH, depression, hypothyroidism who presented to the ED with complaints of increased frequency of urination and weakness. He claims that he has not been using his insulin because of inability to afford it. He last saw Dr. hall 2 months ago and was scheduled to see her today. In the ED, labs showed a high blood sugar level of 465 with anion gap of 21. Patient was given 8 units of insulin and fluids. Repeat BEP showed a closed and last blood sugar level was in the 200s. Problem list: Hyperglycemia: Has had blood glucose in 300s on admission. He states he does not have the necessary resources to buy his insulin at home which is why he stopped taking it for the past month. * Continue Levemir 10 ubnits BID with Novolog Sliding scale per Dr. Hall * Patient requires case management for adequate resources for management of diabetes outpatient * Patient will go home with insulin vials and syringes. Dosing per Dr. hall's recommendations. Urinary tract infection: Patient is now growing Klebsiella oxytoca in urine. It is possibility that organism is causing his urinary frequency along with his hypoglycemia. * Cefuroxime 500 twice a day for 7 days * Increase Flomax 0.8 mg Hypothyroidism/ Depression/ BPH: Continue home statin, LT4 and sertraline. DVT prophylaxis: SubQ Lovenox Code Status: Full Code Problem List: 1. BPH (benign prostatic hyperplasia) 2. Hyperglycemia Pain Ratin Pain Location: none Pain Goal: Remain pain free Pain Plan: none Tomorrow's Labs & Rationales: none
--- NOTE | 2016-08-15 19:39 | Discharge Summary ---
Visit Information Visit Dates Admission Date: 07/14/16 Discharge Date: 07/17/16 Hospital Course Course Attending Physician: JUAN CARLOS TURNER M.D Primary Care Physician: VASILE OVALLE MD Hospital Course: Is a 70-year-old male with past medical history of type 1 diabetes, BPH, depression, hypothyroidism who presented to the ED with complaints of increased frequency of urination and weakness. He claims that he has not been using his insulin because of inability to afford it. He last saw Dr. hall, his clinical informatics educator 2 months ago. In the ED, labs showed a high blood sugar level of 465 with anion gap of 21. Patient was given 8 units of insulin and fluids. Gap closed and pt went to General Medicine Floor. Pt seen for the following problems in hsopital. Hyperglycemia: Type I diabetic; has had blood glucose in 300s-400s on admission. No ketones in urine. He states he does not have the necessary resources to buy his insulin at home which is why he stopped taking it for the past month. * Continue Levemir 10 ubnits BID with Novolog Sliding scale per Dr. Hall * Patient requires case management for adequate resources for management of diabetes outpatient * Patient will go home with insulin vials and syringes. Dosing per Dr. hall's recommendations. Urinary tract infection: Patient is now growing Klebsiella oxytoca in urine. It is possibility that organism is causing his urinary frequency along with his hypoglycemia. * Cefuroxime 500 twice a day for 7 days * Increase Flomax 0.8 mg Hypothyroidism/ Depression/ BPH: Continue home statin, LT4 and sertraline. Allergies: Coded Allergies: NO KNOWN ALLERGIES (10/26/15) Disposition Summary Disposition Principal Diagnosis: Hyperglycemia Additional Diagnosis: UTI Discharge Disposition: home or self care Discharge Instructions General Discharge Information Code Status: Full Code Patient's Diet: Diabetic diet Patient's Activity: as tolerated Follow-Up Instructions/Appts: as tolerated Medications at Discharge Discharge Medications: Stop taking the following medications: Tamsulosin HCl (Flomax) 0.4 MG CAP.ER.24H ORAL DAILY Days = 30 Insulin Aspart Protam & Aspart (Novolog Mix 70-30 Vial) 100 UNIT/ML (70-30) VIAL Inject into fatty tissue Every Morning Insulin Aspart Protam & Aspart (Novolog Mix 70-30 Vial) 100 UNIT/ML (70-30) VIAL Inject into fatty tissue Every night Continue taking these medications: Aspirin (Ecotrin*) 81 MG TABLET.DR 2 Tablet ORAL DAILY Comments: Last Taken: 07/17/16 Time: 1000 Sertraline HCl (Zoloft) 50 MG TABLET 1 Tablet ORAL DAILY Days = 30 Comments: Last Taken: 07/17/16 Time: 1000 Atorvastatin Calcium (Lipitor) 10 MG TABLET 1 Tablet ORAL DAILY Days = 30 Comments: Last Taken: 07/17/16 Time: 1000 Levothyroxine Sodium (Levothyroxine Sodium) 75 MCG TABLET 1 Tablet ORAL DAILY BEFORE BREAKFAST Qty = 90 Comments: Last Taken: 07/17/16 Time: 0600 Start taking the following new medications: Cefuroxime Axetil (Cefuroxime) 250 MG TABLET 500 Milligram ORAL EVERY 12 HOURS Days = 6 No Refills Comments: Last Taken: 07/17/16 Time: 1000 Tamsulosin HCl (Flomax) 0.4 MG CAP.ER.24H 0.8 Milligram ORAL DAILY Days = 30 Refills = 2 Comments: Last Taken: 07/17/16 Time: 1000 Insulin NPL/Insulin Lispro (Humalog Mix 75-25 Vial) 100 UNIT/ML (75-25) VIAL 1 VIAL SUB-Q SEE INSTRUCT Days = 30 Refills = 2 Instructions: 15 UNITS BEFORE BREAKFAST 12 UNITS BEFORE DINNER MONITOR FASTING BLOOD SUGAR Comments: NOT GIVEN Copies To: VASQUEZ KOHLER,VASILE Chris Attending MD Review Statement Documenting Attending: JUAN CARLOS TURNER M.D Other Findings: I have reviewed the discharge summary
== END 2016-07-17 14:20 | DRG 638 ==
LOC: ERH 11:28 → 2NA 16:05 → ERHI 16:05 → 2NA 16:05
PROVIDERS: Internal Medicine; Physician Assistant Medical; ADMIT Internal Medicine
DX: E10.65 Type 1 diabetes mellitus with hyperglycemia (principal); N39.0 Urinary tract infection, site not specified; B96.1 Klebsiella pneumoniae [K. pneumoniae] as the cause of diseases classified elsewhere; Z79.4 Long term (current) use of insulin; E03.9 Hypothyroidism, unspecified; N40.1 Benign prostatic hyperplasia with lower urinary tract symptoms; R35.0 Frequency of micturition; F32.9 Major depressive disorder, single episode, unspecified
CPT/HCPCS: 2NASP; 81001; 82436; 87086; 93005; 93010; 96360; 96361; 96372; 99291; J1650; J1815

== ENCOUNTER 2017-01-16 10:14 | Inpatient (IN) | payer OTHER, MEDICARE ==
[~2017-01-16] VITALS: Ht 175.3 cm; Wt 66.0 kg
[~2017-01-16 10:14] MED LIST changes: +CEFUROXIME250 M1 PO; +HUMALOG MI100 UNIT/1 SQ; +LEVOTHYROXINE75 MCG PO; +NOVOLOG MI100 UNIT/1 SC
--- NOTE | 2017-01-16 10:20 | NUR ---
71 YO MALE BIBA FROM [facility]. PER EMS PT STOPPED TAKING HIS INSULIN. BS READING "HIGH" PER EMS. PT REPORTS FEELING TIRED AND DIZZY. ARRIVES, ALERT & ORIENTED, DENIES PAIN/SOB. BLOOD GLUCOSE READING HIGH IN ER AT THIS TIME. PT STATES HE JUST IS "TIRED" AND THATS WHY HE STOPPED HIS MEDICATIONS.
--- NOTE | 2017-01-16 10:29 | NUR ---
PT INCONTINENT OF URINE, NOTED WITH OPEN WOUND TO R SIDE OF BOTTOCKS, BARRIER CREAM APPLIED TO BOTTOM AND PERICARE PROVIDED. NOTED WITH ABRASION TO RIGHT UPPER BACK, PER PT "I FELL A COUPLE DAYS AGO" PT TEARFUL, STATES "I JUST DONT WANT TO LIVE ANYMORE, I HAVE NOONE LEFT" EMOTIONAL SUPPORT PROVIDED, PT STATES HE HASNT BEEN EATING OR DRINKING MUCH LATELY, STATES [place], HE USED TO LIVE WITH HIS BROTHER WHO . AT BEDSIDE FOR DEDRA DAHL REMAINS INFUISNG.
--- NOTE | 2017-01-16 11:02 | ED GENERAL ADULT ---
History of Present Illness General Chief Complaint: General Adult Stated Complaint: BIBA FOR HYPERGLYCEMIA Source: patient Exam Limitations: no limitations Allergies Coded Allergies: NO KNOWN ALLERGIES (10/26/15) Reconcile Medications Aspirin (Ecotrin*) 81 MG TABLET.DR 2 TAB PO DAILY HEART/BLOOD (Reported) Atorvastatin Calcium (Lipitor) 10 MG TABLET 1 TAB PO DAILY HYPERLIPIDEMIA Cefuroxime Axetil (Cefuroxime) 250 MG TABLET 500 MG PO Q12 UTI Insulin NPL/Insulin Lispro (Humalog Mix 75-25 Vial) 100 UNIT/ML (75-25) VIAL 1 VIAL SQ SEE INSTRUCT DIABETES 15 UNITS BEFORE BREAKFAST 12 UNITS BEFORE DINNER MONITOR FASTING BLOOD SUGAR Levothyroxine Sodium 75 MCG TABLET 1 TAB PO DAILY AC THYROID (Reported) Sertraline HCl (Zoloft) 50 MG TABLET 1 TAB PO DAILY MENTAL HEALTH (Reported) Tamsulosin HCl (Flomax) 0.4 MG CAP.ER.24H 0.8 MG PO DAILY BPH Triage Note: 71 YO MALE DAMIAN FROM [facility]. PER EMS PT STOPPED TAKING HIS INSULIN. BS READING "HIGH" PER EMS. PT REPORTS FEELING TIRED AND DIZZY. ARRIVES, ALERT & ORIENTED, DENIES PAIN/SOB. BLOOD GLUCOSE READING HIGH IN ER AT THIS TIME. PT STATES HE JUST IS "TIRED" AND THATS WHY HE STOPPED HIS MEDICATIONS. Triage Nurses Notes Reviewed? yes HPI: 71 yo M with past medical history of Type I diabetes and hypothyroidism presented to the ED feeling depressed and wanting to give up on life as most of his family members have . He started feeling sad after the of his brother a few months ago and shortly afterwards being rejected by his cousin and his children. He blames himself for the rejection. Although he does reports being depressed he refuses loss of interest or concentration in his daily activities. He manages to get good sleep each night. He reports his appetite to be good however, he does not feel like eating. He has had significant unintentional weight loss. He denies feelings of fatigue or suicidal ideation. (LIZ KOHLER,[facility]) Vital Signs & Intake/Output Vital Signs & Intake/Output Vital Signs Date Time Temp Pulse Resp B/P B/P Pulse O2 O2 Flow FiO2 Mean Ox Delivery Rate 01/16 1142 98.4 99 18 104/51 98 Room Air 01/16 1110 95 Room Air 01/16 1019 98.3 93 18 95/51 95 Room Air Past History Travel History Traveled to [place] past 21 day No Medical History Any Pertinent Medical History? see below for history Neurological: NONE EENT: NONE Cardiovascular: NONE Respiratory: NONE Gastrointestinal: NONE Hepatic: NONE Renal: benign prost hyperplasia Musculoskeletal: NONE Psychiatric: depression Endocrine: hypothyroidism, DM type 1 Blood Disorders: NONE Cancer(s): SKIN CANCER FINANCIAL OPERATIONS ANALYST/Reproductive: NONE History of MRSA: No History of VRE: No History of CDIFF: No Pneumonia Vaccine: 03/16/16 Influenza Vaccine: 03/16/16 Tetanus Vaccine: Surgical History Surgical History: HERNIA REPAIR Psychosocial History Who do you live with Patient/Self Services at Home None What is your primary language Spanish Tobacco Use: Never used ETOH Use: denies use Illicit Drug Use: denies illicit drug use Family History Family History, If Any: MOTHER FH: diabetes mellitus Hx Contributory? No (JEEVAN HILL MD) Review of Systems Review of Systems Constitutional: Reports: no symptoms. EENTM: Reports: no symptoms. Neurological/Psychological: Reports: depressed. (JEEVAN HILL MD) Review of Systems Respiratory: Reports: no symptoms. Cardiovascular: Reports: no symptoms. GI: Reports: no symptoms. Genitourinary: Reports: no symptoms. Musculoskeletal: Reports: no symptoms. Skin: Reports: no symptoms. Hematologic/Endocrine: Reports: no symptoms. Immunologic/Allergic: Reports: no symptoms. All Other Systems: Reviewed and Negative (ANGELIQUE KOHLER,TIFFANIE Wolf) Physical Exam Physical Exam General Appearance: awake, thin Head: atraumatic, normal appearance (JEEVAN HILL MD) Physical Exam Eyes: Bilateral: PERRL, EOMI. Ears, Nose, Throat: normal pharynx, normal ENT inspection, DRY MUCOSA Neck: normal inspection, supple, full range of motion Respiratory: normal breath sounds, chest non-tender, no respiratory distress, lungs clear Cardiovascular: regular rate/rhythm, normal peripheral pulses Gastrointestinal: normal bowel sounds, soft, non-tender, no organomegaly Back: normal inspection, normal range of motion Extremities: normal inspection, normal capillary refill, normal range of motion, no edema Neurologic/Psych: no motor/sensory deficits, awake, alert, oriented x 3, normal mood/affect Skin: intact, normal color, warm/dry Lymphatic: no anterior cervical paul Core Measures ACS in differential dx? No CVA/TIA Diagnosis: No Severe Sepsis Present: No Septic Shock Present: No (ANGELIQUE KOHLER,TIFFANIE Wolf) Progress Plan of Care: Orders Procedure Date/time Status Add-on Test (ER Only) 01/16 1212 Active Patient Data 01/16 1151 Active Admit to inpatient 01/16 1146 Active MIXED VENOUS BLOOD GAS (GEN) 01/16 103 Complete URINALYSIS 01/16 103 Complete TROPONIN LEVEL 01/16 103 Complete COMPREHENSIVE METABOLIC PANEL 01/16 1033 Complete CBC WITHOUT DIFFERENTIAL 01/16 1033 Complete ACETONE 01/16 103 Complete EKG 01/16 1033 Active Laboratory Tests 01/16/17 1147: Urine Color BLDY H, Urine Clarity CLDY H, Urine pH 6.0, Ur Specific Sherman 1.020, Urine Protein >=300 H, Urine Ketones 15 H, Urine Nitrite NEG, Urine Bilirubin NEG@ICTO, Urine Urobilinogen 0.2, Ur Leukocyte Esterase MOD H, Ur Microscopic SEDIMENT EXAMINED, Urine RBC >75 H, Urine WBC > 75 H, Ur Epithelial Cells RARE, Urine Bacteria MANY H, Urine Hemoglobin LARGE H, Urine Glucose >=1000 H 01/16/17 1057: Bicarbonate Actual 15 L, Mixed VBG pH 7.26 L, Mixed VBG pCO2 35 L, Mixed VBG O2 Saturation 31 L, P-50 (Temp Corrected) N, Carboxyhemoglobin 0.4 L, O2 Concentration % .21, Temperature 98.6, O2 Delivery Method RA, Phlebotomy Draw Site RIGHT AC 01/16/17 1055: Anion Gap 28 H, Estimated GFR 26 L, BUN/Creatinine Ratio 30.4 H, Glucose 889 *H, Calcium 9.4, Total Bilirubin 0.7, AST 21, ALT 30, Alkaline Phosphatase 119, Troponin I < 0.01, Total Protein 5.6 L, Albumin 3.2 L, Globulin 2.4, Albumin/ Globulin Ratio 1.3, CBC w Diff MAN DIFF ORDERED, RBC 4.09 L, MCV 89.7, MCH 29.2 , RDW 15.3 H, MPV 7.4, Gran % 95.2 H, Lymphocytes % 2.0 L, Monocytes % 2.8, Eosinophils % 0, Basophils % 0 L, Absolute Granulocytes 15.4 H, Absolute Lymphocytes 0.3 L, Absolute Monocytes 0.5, Absolute Eosinophils 0, Absolute Basophils 0, Normocytic RBCs VERIFIED, Normochromic RBCs VERIFIED, PUBS MCHC 32.6 L, Acetone Level POSITIVE AT 1:16 DIL Differential Diagnoses I considered the following diagnoses in my evaluation of the patient: [DKA, AMI, UTI, ELECTROLYTE ABNORMALITY] Diagnostic Imaging: Viewed by Me: Radiology Read. Discussed w/RAD: Radiology Read. CXR Impression: PATIENT: DELIO SKAGGS PRESENT AGE: 71 PATIENT ACCOUNT NO: [id number] : 44 LOCATION: [facility] ORDERING PHYSICIAN: TIFFANIE MERINO MD SERVICE DATE: 01/16/17 EXAM TYPE: RAD - XRY-PORTABLE CHEST XRAY EXAMINATION: XR PORTABLE CHEST CLINICAL INFORMATION: Pneumonia. Cough COMPARISON: 10/25/2015 TECHNIQUE: Portable frontal view of the chest was obtained. FINDINGS: 1.1 cm well-circumscribed nodular opacity at the left lung base could represent a nipple shadow, less likely a pulmonary nodule. This was not visible on the prior study. Otherwise, the lungs are clear. There is slight blunting of the left costophrenic angle. No pneumothorax. No pulmonary edema. Normal heart size. Degenerative changes of the shoulders and thoracic spine. IMPRESSION: 1.1 cm well-circumscribed nodular opacity at the left lung base. This most likely represents a nipple shadow, less likely a pulmonary nodule. Consider repeat film with a nipple markers in place. There is slight blunting of the left costophrenic angle. This could represent atelectasis, scar, or small left pleural effusion. DICTATED BY: MIRZA PUTNAM MD DATE/TIME DICTATED:01/16/171121 EXPLOSIVE ORDNANCE DISPOSAL TECHNICIAN:MILI DATE/TIME TRANSCRIBED:1121 CONFIDENTIAL, DO NOT COPY WITHOUT APPROPRIATE AUTHORIZATION. < Electronically signed in Other Vendor System> SIGNED BY: MIRZA PUTNAM MD 01/16/17 1131 Initial ED EKG: NSR, nonspecific ST T wave chg Prior EKG: unchanged Rhythm Strip: normal sinus rhythm (ANGLEIQUE KOHLER,TIFFANIE Wolf) Departure Departure Referrals: VASQUEZ KOHLER,VASILE Chris (PCP/Family) Departure Forms: Customer Survey General Discharge Information (LIZ KOHLER,JEEVAN) Departure Disposition: STILL A PATIENT Condition: Critical Clinical Impression Primary Impression: DKA (diabetic ketoacidoses) Secondary Impressions: Acute renal failure, Leukocytosis Admission Note Spoke With: MALIK GR MD Documentation of Exam: Documentation of any treatments & extenuating circumstances including Concerns Regarding Discharge (functional status, medication knowledge or non-compliance, living conditions, etc.) that warrant an admission rather than observation: [ Aggressive hydration, insulin drip, endocrinology consultation, closely follow laboratory work, ICU admission, patient denies any suicidal ideations however his also expressed that he is tired and sad because he has no family or friends. Consider psychiatric consultation.] Resident Co-Sign Statement Statement: ED Attending supervision documentation- [X] I saw and evaluated the patient. I have also reviewed all the pertinent lab results and diagnostic results. I agree with the findings and the plan of care as documented in the Resident's documentation. [X] I have reviewed the ED Record and agree with the Resident's documentation. [] Additions or exceptions (if any) to the Resident's note and plan are summarized below: [21st was seen and examined this patient. I read the above note and agree with what has been written. Patient has not taken his medication in the past few months. Patient states it is just feels very tired. Patient said because he does not have any family or friends. Patient denies any suicidal ideations. Patient found to be in DKA. Patient has no abdominal pain and his abdomen is soft and nontender to palpation. His lungs are clear to auscultation and his chest x-ray is negative. A UA still pending. Patient given aggressive IV hydration and insulin drip has been initiated. Endocrine has been consult.] (ANGELIQUE KOHLER,TIFFANIE Wolf) Critical Care Note Critical Care Note Critical Care Time: mins: (45 MIN) (ANGELIQUE KOHLER,TIFFANIE Wolf)
--- NOTE | 2017-01-16 11:05 | NUR ---
FRIENDS AT BEDSIDE, SECOND IV EST. SECOND LITER NS INFUSING PER ORDER AT THIS TIME.
[2017-01-16 11:15] LABS: ABSOLUTE BASOPHIL COUNT 0 /CUMM (0.0-0.2); ABSOLUTE EOSINOPHIL COUNT 0 /CUMM (0.0-0.7); ABSOLUTE GRANULOCYTE CT 15.4 /CUMM (1.4-6.5); ABSOLUTE LYMPH COUNT 0.3 /CUMM (1.2-3.4); ABSOLUTE MONOCYTE COUNT 0.5 /CUMM (0.10-0.60); BASOPHIL % 0 % (0.0-2.0); EOSINOPHIL % 0 % (0-5); HEMATOCRIT 36.6 % (42-52); MEAN CORPUSCULAR HGB 29.2 PG (27.0-31.0); MEAN CORPUSCULAR HGB CONC 32.6 G/DL (33.0-37.0); MEAN CORPUSCULAR VOLUME 89.7 FL (80.0-94.0); MEAN PLATELET VOLUME 7.4 FL (7.4-10.4); PLATELET COUNT 169 /CUMM (130-400); RBC DISTRIBUTION WIDTH 15.3 % (11.5-14.5); RED BLOOD CELL CT 4.09 /CUMM (4.70-6.10); WHITE BLOOD CELL COUNT 16.2 /CUMM (4.8-10.8)
[2017-01-16 11:17] LABS: GRANULOCYTE % 95.2 % (42.2-75.2)
--- NOTE | 2017-01-16 11:30 | NUR ---
CRITICAL TEST RESULTS [id number] DELIO SKAGGS 71 M TESTS AND RESULTS: GLUCOSE 889 Results received and read back by: MARIELA KIRKLAND Results received date and time: 01/16/17 1130 The following provider was notified of the results, and read the results back: DR MERINO Notified date and time: 01/16/17 at 1130
--- NOTE | 2017-01-16 11:31 | RADIOLOGY REPORT ---
EXAMINATION: XR PORTABLE CHEST CLINICAL INFORMATION: Pneumonia. Cough COMPARISON: 10/25/2015 TECHNIQUE: Portable frontal view of the chest was obtained. FINDINGS: 1.1 cm well-circumscribed nodular opacity at the left lung base could represent a nipple shadow, less likely a pulmonary nodule. This was not visible on the prior study. Otherwise, the lungs are clear. There is slight blunting of the left costophrenic angle. No pneumothorax. No pulmonary edema. Normal heart size. Degenerative changes of the shoulders and thoracic spine. IMPRESSION: 1.1 cm well-circumscribed nodular opacity at the left lung base. This most likely represents a nipple shadow, less likely a pulmonary nodule. Consider repeat film with a nipple markers in place. There is slight blunting of the left costophrenic angle. This could represent atelectasis, scar, or small left pleural effusion.
--- NOTE | 2017-01-16 11:42 | NUR ---
PT ATTMEPTING TO GIVE URINE SPECIMEN AT THIS TIME WITH URINAL
--- NOTE | 2017-01-16 11:43 | NUR ---
[facility] CALLED FOR INSULIN DRIP AT THIS TIME, WILL CALL WHEN ITS READY
--- NOTE | 2017-01-16 11:49 | NUR ---
PT VOIDED 300CC DARK URINE IN URINAL SPECIMEN SENT TO LAB PT REMAINS AWAKE, ALERT AND ORIENTED X4 MEDICATED WITH INSULIN PER ORDER
--- NOTE | 2017-01-16 12:07 | NUR ---
INSULIN DRIP STARTED AT 5ML/HR (5UNITS/HR) AT THIS TIME PER DR REYES. DR REYES AND HOUSE STAFF AT BEDSIDE. INSULIN DRIP VERIFIED WITH ALMA HORNE PRIOR TO ADMINISTRATION.
--- NOTE | 2017-01-16 12:28 | Cons- Endocrinology ---
General Information and HPI Consulting Request Date of Consult: 01/16/17 Requested By: ICU Reason for Consult: management of DKA Source of Information: patient, old records Exam Limitations: no limitations History of Present Illness: Patient has had hx of major depression, DM type 1 and hypothyroidism. He stopped all his medications on his own after he became very depressed. He was brought in to ER for further evaluation and management. Blood work showed glucose level of 889, Cr 2.5, K 5.4, CO2 13, acetone 1:16, AG 28. He was supposed to be on Humalog 75/25 mix 20 units before breakfast and 12 units before dinner and Levothyroxine 75 mcg daily at home. Allergies/Medications Allergies: Coded Allergies: NO KNOWN ALLERGIES (10/26/15) Home Med List: Aspirin (Ecotrin*) 81 MG TABLET.DR 2 TAB PO DAILY HEART/BLOOD (Reported) Atorvastatin Calcium (Lipitor) 10 MG TABLET 1 TAB PO DAILY HYPERLIPIDEMIA Insulin NPL/Insulin Lispro (Humalog Mix 75-25 Vial) 100 UNIT/ML (75-25) VIAL 1 VIAL SQ SEE INSTRUCT DIABETES 15 UNITS BEFORE BREAKFAST 12 UNITS BEFORE DINNER MONITOR FASTING BLOOD SUGAR Levothyroxine Sodium 75 MCG TABLET 1 TAB PO DAILY AC THYROID (Reported) Sertraline HCl (Zoloft) 50 MG TABLET 1 TAB PO DAILY MENTAL HEALTH (Reported) Tamsulosin HCl (Flomax) 0.4 MG CAP.ER.24H 0.8 MG PO DAILY BPH Review of Systems Review of Systems Constitutional: Reports: see HPI. Cardiovascular: Denies: chest pain, palpitations. Respiratory: Denies: short of breath. GI: Denies: abdominal pain. Neurological/Psychological: Reports: depressed. Hematologic/Endocrine: Reports: polyuria, polydipsia. 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 Surgical History Surgical History: HERNIA REPAIR Family History Relations & Conditions If Any: MOTHER FH: diabetes mellitus Psychosocial History Services at Home: None ETOH Use: denies use Illicit Drug Use: denies illicit drug use Exam & Diagnostic Data Last 24 Hrs of Vital Signs/I&O Vital Signs Date Time Temp Pulse Resp B/P B/P Pulse O2 O2 Flow FiO2 Mean Ox Delivery Rate 01/16 1142 98.4 99 18 104/51 98 Room Air 01/16 1110 95 Room Air 01/16 1019 98.3 93 18 95/51 95 Room Air Intake & Output 01/16 1600 01/16 0800 01/16 0000 Intake Total Output Total 300 Balance -300 Output, Urine 300 Patient 170 lb Weight Weight Reported by Patient Measurement Method Physical Exam General Appearance: depressed Neck: normal inspection Respiratory: lungs clear Cardiovascular: tachycardia (mild) Gastrointestinal: soft, non-tender Extremities: no edema Skin: dry Labs/Michael Results: Laboratory Tests 01/16 01/16 1147 1057 Blood Gas Bicarbonate Actual (22 - 26 MEQ/L) 15 L Mixed VBG pH (7.31 - 7.41 PH) 7.26 L Mixed VBG pCO2 (41 - 51 TORR) 35 L Mixed VBG O2 Saturation (35 - 45 TORR) 31 L P-50 (Temp Corrected) N Carboxyhemoglobin (1.5 - 5.0 %) 0.4 L O2 Concentration % .21 Temperature (97.0 - 100.0 FARH) 98.6 O2 Delivery Method RA Miscellaneous Phlebotomy Draw Site RIGHT AC Urines Urine Color (YEL,AMB,STR) BLDY H Urine Clarity (CLEAR) CLDY H Urine pH (5.0 - 8.0) 6.0 Ur Specific [place] (1.001 - 1.035) 1.020 Urine Protein (NEG,<30 MG/DL) >=300 H Urine Ketones (NEG) 15 H Urine Nitrite (NEG) NEG Urine Bilirubin (NEG) NEG@ICTO Urine Urobilinogen (0.1 - 1.0 EU/dl) 0.2 Ur Leukocyte Esterase (NEG) MOD H Ur Microscopic SEDIMENT EXAMINED Urine RBC (0 - 5 /HPF) >75 H Urine WBC (0 - 2 /HPF) > 75 H Ur Epithelial Cells (NONE,FEW) RARE Urine Bacteria (NEG/NONE) MANY H Urine Hemoglobin (NEG) LARGE H Urine Glucose (N MG/DL) >=1000 H 01/16 1055 Chemistry Sodium (137 - 145 mmol/L) 125 L Potassium (3.5 - 5.1 mmol/L) 5.4 H Chloride (98 - 107 mmol/L) 84 L Carbon Dioxide (22 - 30 mmol/L) 13 L Anion Gap (5 - 16) 28 H BUN (9 - 20 mg/dL) 76 H Creatinine (0.7 - 1.2 mg/dL) 2.5 H Estimated GFR (>60 ml/min) 26 L BUN/Creatinine Ratio (7 - 25 %) 30.4 H Glucose (65 - 99 mg/dL) 889 *H Calcium (8.4 - 10.2 mg/dL) 9.4 Total Bilirubin (0.2 - 1.3 mg/dL) 0.7 AST (17 - 59 U/L) 21 ALT (21 - 72 U/L) 30 Alkaline Phosphatase (< 127 U/L) 119 Troponin I (<0.11 ng/ml) < 0.01 Total Protein (6.3 - 8.2 g/dL) 5.6 L Albumin (3.5 - 5.0 g/dL) 3.2 L Globulin (1.9 - 4.2 gm/dL) 2.4 Albumin/Globulin Ratio (1.1 - 2.2 %) 1.3 TSH (0.270 - 4.200 uIU/mL) Pending Free T4 (0.78 - 2.44 ng/dL) Pending Hematology CBC w Diff MAN DIFF ORDERED WBC (4.8 - 10.8 /CUMM) 16.2 H RBC (4.70 - 6.10 /CUMM) 4.09 L Hgb (14.0 - 18.0 G/DL) 11.9 L Hct (42 - 52 %) 36.6 L MCV (80.0 - 94.0 FL) 89.7 MCH (27.0 - 31.0 PG) 29.2 RDW (11.5 - 14.5 %) 15.3 H Plt Count (130 - 400 /CUMM) 169 MPV (7.4 - 10.4 FL) 7.4 Gran % (42.2 - 75.2 %) 95.2 H Lymphocytes % (20.5 - 51.1 %) 2.0 L Monocytes % (1.7 - 9.3 %) 2.8 Eosinophils % (0 - 5 %) 0 Basophils % (0.0 - 2.0 %) 0 L Absolute Granulocytes (1.4 - 6.5 /CUMM) 15.4 H Absolute Lymphocytes (1.2 - 3.4 /CUMM) 0.3 L Absolute Monocytes (0.10 - 0.60 /CUMM) 0.5 Absolute Eosinophils (0.0 - 0.7 /CUMM) 0 Absolute Basophils (0.0 - 0.2 /CUMM) 0 Normocytic RBCs VERIFIED Normochromic RBCs VERIFIED PUBS MCHC (33.0 - 37.0 G/DL) 32.6 L Toxicology Acetone Level (NEGATIVE) POSITIVE AT 1:16 DIL Assessment/Plan Assessment/Plan Patient has had hx of major depression, DM type 1 and hypothyroidism. He stopped all his medications on his own after he became very depressed and he will be admitted to ICU for DKA. DKA management: 1. agree with the current IVF; 2. start insulin drip at 5 units per hour; monitor FSG every one hour and adjust insulin drip rate accordingly; 3. monitor electrolytes at 2 pm and then every 4-6 hours and then his IVF will be adjusted accordingly; 4. add K to his IVF if patient makes urine and K level is less than 5.1; 5. add dextrose to his IVF after his glucose level is less than 250; 6. check TFT and then thyroid hormone replacement will be determined accordingly ; 7. psych consult; 8. continue other supportive management. please call if there is any question. will follow. Consult Acknowledgment - Thank you for your consult request.
--- NOTE | 2017-01-16 12:33 | NUR ---
PT PROVIDED WITH WATER PER PREQUEST AT THIS TIME, ASKING FOR BED TO BE LAYED BACK SO HE CANT TRY TO GET SOME SLEEP. FLUIDS AND INSULIN REMIAN INFUISNG PER ORDER.
--- NOTE | 2017-01-16 12:50 | History & Physical ---
BRITTANIE SIMPSON 01/16/17 1250: General Information and HPI Source of Information: patient, old records Exam Limitations: no limitations History of Present Illness: He is 71-year-old man with past medical history of type 1 diabetes mellitus, hypothyroidism, depression, BPH, urinary tract infection BIBA after he was found on floor. 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 According to patient he got up this morning, feeling very weak and tired, slipped and fell down on the floor. He was too weak to get up by himself. His friends found him on the floor and called EMS. Patient denies any fever, chills, chest pain, palpitations, dizziness or lightheadedness before fall. Denies loss of consciousness, weakness or numbness of any part of his body or head strike. Patient reports weight loss, decreased appetite. He is very depressed and tearful in ER. Currently he denies any chest pain or discomfort, dizziness or lightheadedness, abdominal pain, nausea, vomiting. He reports having one episode of loose nonbloody watery bowel movement yesterday. He also complains of urinary frequency and foul-smelling urine but denies dysuria or burning micturition. 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 Used to live with his brother who . Denies smoking, drinking alcohol or use of illicit drugs. He is retired. unmarried. No kids. He stopped taking all his medications 2 months ago. Allergies/Medications Allergies: Coded Allergies: NO KNOWN ALLERGIES (10/26/15) Home Med list Aspirin (Ecotrin*) 81 MG TABLET.DR 2 TAB PO DAILY HEART/BLOOD (Reported) Atorvastatin Calcium (Lipitor) 10 MG TABLET 1 TAB PO DAILY HYPERLIPIDEMIA Insulin NPL/Insulin Lispro (Humalog Mix 75-25 Vial) 100 UNIT/ML (75-25) VIAL 1 VIAL SQ SEE INSTRUCT DIABETES 15 UNITS BEFORE BREAKFAST 12 UNITS BEFORE DINNER MONITOR FASTING BLOOD SUGAR Levothyroxine Sodium 75 MCG TABLET 1 TAB PO DAILY AC THYROID (Reported) Sertraline HCl (Zoloft) 50 MG TABLET 1 TAB PO DAILY MENTAL HEALTH (Reported) Tamsulosin HCl (Flomax) 0.4 MG CAP.ER.24H 0.8 MG PO DAILY BPH Compliance With Home Meds: POOR Past History Travel History Traveled to [place] past 21 day No Medical History Neurological: NONE EENT: NONE Cardiovascular: NONE Respiratory: NONE Gastrointestinal: NONE Hepatic: NONE Renal: benign prost hyperplasia Musculoskeletal: NONE Psychiatric: depression Endocrine: hypothyroidism, DM type 1 Blood Disorders: NONE Cancer(s): SKIN CANCER 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 FH: diabetes mellitus FATHER (Alcoholic). Psychosocial History Who Do You Live With? [employer] Services at Home: None Smoking Status: Former Smoker ETOH Use: denies use Illicit Drug Use: denies illicit drug use Functional Ability ADLs Independent: dressing, eating, toileting, bathing. Ambulation: independent IADLs Independent: shopping, housework, finances, food prep, telephone, medication admin. Needs Assist: transportation. Review of Systems Review of Systems Constitutional: Reports: see HPI. Exam & Diagnostic Data Last 24 Hrs of Vital Signs/I&O Vital Signs Date Time Temp Pulse Resp B/P B/P Pulse O2 O2 Flow FiO2 Mean Ox Delivery Rate 01/16 1300 98.1 89 18 114/58 99 Room Air 01/16 1142 98.4 99 18 104/51 98 Room Air 01/16 1110 95 Room Air 01/16 1019 98.3 93 18 95/51 95 Room Air Intake & Output 01/16 1600 / 0800 01/16 0000 Intake Total Output Total 300 Balance -300 Output, Urine 300 Patient 170 lb Weight Weight Reported by Patient Measurement Method Physical Exam General Appearance Alert, Oriented X3, Cooperative, depressed and tearful HEENT dry mucous membranes Neck Supple Cardiovascular Regular Rate, systolic murmur Lungs Clear to Auscultation Abdomen Normal Bowel Sounds, Soft, No Tenderness Neurological Normal Speech, Strength at 5/5 X4 Ext, Sensation Intact, Cranial Nerves 3-12 NL Extremities No Edema, onychomycosis toe nails Last 24 Hrs of Labs/Michael: Laboratory Tests 01/16/17 1147: Urine Color BLDY H, Urine Clarity CLDY H, Urine pH 6.0, Ur Specific [place] 1.020, Urine Protein >=300 H, Urine Ketones 15 H, Urine Nitrite NEG, Urine Bilirubin NEG@ICTO, Urine Urobilinogen 0.2, Ur Leukocyte Esterase MOD H, Ur Microscopic SEDIMENT EXAMINED, Urine RBC >75 H, Urine WBC > 75 H, Ur Epithelial Cells RARE, Urine Bacteria MANY H, Urine Hemoglobin LARGE H, Urine Glucose >=1000 H 01/16/17 1057: Bicarbonate Actual 15 L, Mixed VBG pH 7.26 L, Mixed VBG pCO2 35 L, Mixed VBG O2 Saturation 31 L, P-50 (Temp Corrected) N, Carboxyhemoglobin 0.4 L, O2 Concentration % .21, Temperature 98.6, O2 Delivery Method RA, Phlebotomy Draw Site RIGHT AC 01/16/17 1055: Anion Gap 28 H, Estimated GFR 26 L, BUN/Creatinine Ratio 30.4 H, Glucose 889 *H, Calcium 9.4, Total Bilirubin 0.7, AST 21, ALT 30, Alkaline Phosphatase 119, Troponin I < 0.01, Total Protein 5.6 L, Albumin 3.2 L, Globulin 2.4, Albumin/ Globulin Ratio 1.3, TSH 4.030, Free T4 0.87, CBC w Diff MAN DIFF ORDERED, RBC 4.09 L, MCV 89.7, MCH 29.2, RDW 15.3 H, MPV 7.4, Gran % 95.2 H, Lymphocytes % 2.0 L, Monocytes % 2.8, Eosinophils % 0, Basophils % 0 L, Absolute Granulocytes 15.4 H, Absolute Lymphocytes 0.3 L, Absolute Monocytes 0.5, Absolute Eosinophils 0, Absolute Basophils 0, Normocytic RBCs VERIFIED, Normochromic RBCs VERIFIED, PUBS MCHC 32.6 L, Acetone Level POSITIVE AT 1:16 DIL Microbiology 01/16 1253 URINE ROUT: Urine Culture - ORD Diagnostic Data EKG Results Normal sinus rhythm without acute ST-T wave changes Assessment/Plan Assessment: He is 71-year-old man with past medical history of type 1 diabetes mellitus, hypothyroidism, depression, BPH, urinary tract infection. PROBLEM LIST 1. Diabetic ketoacidosis with anion gap 28 with positive serum acetone level and HCO3 13. Blood sugar 889. Patient stopped taking all his medications 2 months ago. 2. Leukocytosis. 2/2 UTI and stress. No fever 3. Chronic anemia. Stable 4. Hyponatremia. Most likely secondary to hyperglycemia 5. Hyperkalemia 2/2 DKA 6. Acute kidney injury. Creatinine 2.5 7. SIRS criteria. hypotension + leukocytosis. Urinary tract infection. UA is bloody/cloudy with moderate urine leukocyte esterase and >75 WBC and many Bacteria and glucosuria. 8. Severe Depression PLAN * Admit in ICU * Monitor vitals closely * Continue IV fluids * Monitor BEP every 4-6 hours * Will add potassium in IV fluids if less than 5 * Continue insulin drip at rate of 5 units per hour and titrate down accordingly * Accu-Cheks every hour * If blood sugar drops below 250 then we will switch IV fluids to D5 half-normal saline * Endo consult appreciated * Follow-up urine cultures * Will start patient on IV ceftriaxone * Monitor ins and outs * Psych consultation for major depression * Continue all other home medications * Subcutaneous heparin for DVT prophylaxis * Pain pathway * DNR/DNI Patient has a friend who is his conservator, Marko boothe. Patient will provide his contact information later on. As Ranked By This Provider Problem List: 1. DIABETIC KETOACIDOSIS 2. Acute renal failure 3. Leukocytosis Core Measures/Miscellaneous Acute Coronary Syndrome ACS Diagnosis: No Cerebrovascular Accident CVA/TIA Diagnosis: No Congestive Heart Failure CHF Diagnosis: No VTE (View Protocol) VTE Risk Factors: Acute medical illness, Age > 40 No [facility] VTE prophylaxis d/t: No contraindications No VTE Pharm Prophylaxis d/t: No contraindications VTE Diagnosis: No VTE Type: NONE VTE Confirmed by (Test): NONE Sepsis (View Protocol) Severe Sepsis Present: No Septic Shock Septic Shock Present: No Miscellaneous Documentation Attending Case Discussed With: MALIK GR MD Primary Care Physician: VASILE OVALLE MD Patient sees these Specialists Dr. Peres Level of Patient Care: Critical Care (CRI) Consults Needed: Consulting Specialty: Endocrinology MALIK GR MD 01/16/17 1424: Attending Review Statement Attending Statement Attending MD Statement: examined this patient, discuss w/resident/PA/SLUSHER OPERATOR, agreed w/resident/PA/SLUSHER OPERATOR, reviewed EMR data (avail), discussed with nursing Attending Assessment/Plan: 71-year-old male past medical history of diabetes, hypertension, BPH and depression. He was last here in July 2016 for DKA. He hasn't used any of his medications for the last 2 months specifically his diabetic medications and there is a question about the home situation wherein he was living with his brother who and now he's been living intermittently at the fire house. He comes in with profound DKA, leukocytosis with a dirty UA in the setting of some urinary frequency and likely urinary tract infection. Off note given the fact that he stopped the insulin himself and in view of the social situation, there is a possibility of passive suicidal ideation. He is not actively suicidal. At this point will bring him into the ICU, he already got 2 L of fluid in the ER and will continue the normal saline at 125 an hour. Appreciate endocrine's recommendations and will continue the IV insulin drip following the anion gap and bicarbonate closely. Follow the K and all lytes again at 2 PM to see whether we need to put K in the fluids. Begin IV ceftriaxone after blood and urine cultures are obtained cover for urinary tract infection. Continue his aspirin and statin, continue his levothyroxine, put in a psych and social work consult. DVT prophylaxis and follow closely. TTS with pt and reviewing care was 36 minutes
--- NOTE | 2017-01-16 13:36 | NUR ---
ROOM 102-1 PT BED ASSIGNMENT
--- NOTE | 2017-01-16 13:47 | NUR ---
PT MEDICATED WITH DAILY MEDS AT THIS TIME USING URINAL AT THIS TIME
--- NOTE | 2017-01-16 14:01 | NUR ---
NS INFUISNG VIA PUMP AT 125ML/HR AT THIS TIME PT URIANTED 300CC DARK URINE IN URINAL.
--- NOTE | 2017-01-16 14:17 | NUR ---
BLOOD GLUCOSE REMAINS READING >500 KADEN CANNON (RESIDENT) PAGED AT THIS TIME
--- NOTE | 2017-01-16 14:24 | Admission Certification ---
Admission Certification Certification Statement - As attending physician, I certify that at the time of - admission, based on clinical presentation, severity of - symptoms, need for further diagnostic testing and - therapeutic interventions, and risk of adverse outcomes - without in-hospital treatment, in my clinical assessment, - this patient requires an acute hospital stay for a minimum - of two nights or longer. I have also considered psychsocial - factors such as support system, advanced age, financial - issues, cognitive issues, and failed out-patient treatments, - past re-admission history, safety of patient, and lack of - compliance as applicable. Specific rationale supporting this admission is: Acute DKA and infection requires insulin drip and fluids.
--- NOTE | 2017-01-16 14:25 | NUR ---
PER ICU RESIDENT, INSULIN DRIP TO REMAIN AT 5 UNITS/HR AT THIS TIME
--- NOTE | 2017-01-16 14:29 | NUR ---
LUNCH TRAY ORDERED FOR PT AT THIS TIME PT REAMINS RESTING ON STRETCHER WITH FRIEND AT BEDSIDE, OFFERS NO COMPLAINTS. REMAINS 98% ON ROOM AIR, NSR ON MONTIOR. DENIES PAIN/SOB.
--- NOTE | 2017-01-16 15:17 | NUR ---
ASSUMED CARE OF THIS PATIENT, REPORT RECEIVED FROM OZZIE COLLIER 3 PM F/S READING >500, MD CHARLES MADE AWARE OF SAME AND STATED HE WILL ADD A BLOOD GLUCOSE TO 1400 LABS, ALSO PER ARACELI LEAVE DRIP AT 5 UNIT UNTIL ADD ON BLOOD GLUCOSE RESULTED.
--- NOTE | 2017-01-16 15:20 | NUR ---
REPORT TO OZZIE ARIAS
[2017-01-16 16:00] VITALS: BP 100/59
--- NOTE | 2017-01-16 16:04 | NUR ---
PT TRANSPORTED AND CARE TRANSFERRED WITHOUT INCIDENT.
[2017-01-17] VITALS: BP 92/50
[2017-01-17 06:14] LABS: ABSOLUTE BASOPHIL COUNT 0 /CUMM (0.0-0.2); ABSOLUTE EOSINOPHIL COUNT 0 /CUMM (0.0-0.7); ABSOLUTE GRANULOCYTE CT 9.5 /CUMM (1.4-6.5); ABSOLUTE LYMPH COUNT 0.4 /CUMM (1.2-3.4); ABSOLUTE MONOCYTE COUNT 0.3 /CUMM (0.10-0.60); BASOPHIL % 0.1 % (0.0-2.0); EOSINOPHIL % 0.2 % (0-5); GRANULOCYTE % 92.9 % (42.2-75.2); MEAN CORPUSCULAR HGB 29.3 PG (27.0-31.0); MEAN CORPUSCULAR HGB CONC 33.4 G/DL (33.0-37.0); MEAN CORPUSCULAR VOLUME 87.8 FL (80.0-94.0); MEAN PLATELET VOLUME 7.3 FL (7.4-10.4); PLATELET COUNT 129 /CUMM (130-400); RBC DISTRIBUTION WIDTH 15.2 % (11.5-14.5); RED BLOOD CELL CT 3.38 /CUMM (4.70-6.10); WHITE BLOOD CELL COUNT 10.2 /CUMM (4.8-10.8)
[2017-01-17 06:32] LABS: HEMATOCRIT 29.6 % (42-52)
--- NOTE | 2017-01-17 06:35 | RADIOLOGY REPORT ---
EXAMINATION: XR PORTABLE CHEST CLINICAL INFORMATION: Cough. COMPARISON: Chest x-ray 10/25/2015 . 01/16/2017 TECHNIQUE: Portable frontal view of the chest was obtained. 6:00 AM FINDINGS: No significant abnormality is noted involving the heart, lungs, mediastinum, bony thorax or soft tissues. The nodular opacity left lung base noted on the prior chest x-ray of 01/16/2017 not present on current study. IMPRESSION: No acute abnormality of the chest.
--- NOTE | 2017-01-17 07:59 | PN- Housestaff ---
KADEN CANNON MD 01/17/17 0759: Subjective Follow-up For: Diabetic ketoacidosis Urinary Tract Infection Acute Kidney Injury Subjective: Patient seen and examined. He is seen lying upright in bed resting comfortably. He appears to be in no acute distress; however does appear tearful and tired. He reports feeling much better than yesterday and denies any new complaints. He admits that he appetite isnt "the best" but is requesting 'cold vanilla ensure' with his meals. He denies any urinary burning/frequency/urgency or discomfort at this time. Otherwise he denies any blurred/double vision, lightheadedness/dizzines, headache, fever, chills, chest pain/discomfort, shortness of breath, nausea, vomiting, diarrhea. Review of Systems Constitutional: Reports: see HPI. Objective Last 24 Hrs of Vital Signs/I&O Vital Signs Date Time Temp Pulse Resp B/P B/P Pulse O2 O2 Flow FiO2 Mean Ox Delivery Rate 01/17 1209 84 100/54 07/ 1200 97.0 84 18 100/54 96 Room Air / 0800 100.0 90 18 100/60 96 Room Air /05 0400 96 Room Air 07/05 0000 95 Room Air 07/05 0000 98.5 91 12 92/50 95 Room Air 07/04 2000 97 Room Air 07/04 1600 98.3 90 18 100/59 96 Room Air 07/04 1600 96 Room Air 07/04 1501 98.2 91 18 101/51 97 Room Air 07/04 1404 98.6 87 18 110/53 98 Room Air / 1347 98.1 89 18 114/58 Intake & Output 01/17 1600 /05 0800 07/05 0000 Intake Total 1182 3108.9 Output Total 700 250 Balance 482 2858.9 Intake, IV 1032 2988.9 Intake, Oral 150 120 Number 0 0 Bowel Movements Output, Urine 700 250 Patient 65.998 kg 65.998 kg 61.235 kg Weight Weight Bed scale Bed scale Measurement Method Physical Exam General Appearance: Alert, Oriented X3, Cooperative, No Acute Distress Other Physical Findings: General-well developed, thin elderly man appearing tired/tearful, but in no acute distress HEENT-NCAT, PERRL, EOMI, anicteric sclera, moist mucous membranes Cardio-S1, S2 w/o m/g/r;RRR Lung-CTA bilaterally Abdomen-Soft, nontender, nondistended, bowel sounds intact Neuro-Awake and alert, oriented to person/place/time, CN II-XII grossly intact Ext-normal pulses, normal capillary refill, no cyanosis/clubbing/edema Current Medications: Current Medications Sig/Marleny Start time Last Medication Dose Route Stop Time Status Admin Acetaminophen 650 MG Q6P PRN 01/16 1245 AC PO Aripiprazole 2 MG DAILY 01/17 1235 AC PO Aspirin Buffered 162 MG DAILY 01/16 1250 AC 01/17 PO 1208 Atorvastatin Calcium 10 MG 1700 01/16 1700 AC 01/16 PO 1719 Ceftriaxone Sodium 1,000 MG Q24H 01/16 1400 AC 01/16 IV 1337 Heparin Sodium 5,000 UNIT Q8 01/16 1400 AC 01/17 (Porcine) SC 0625 Insulin Aspart 0 TIDAC/HS 01/17 1200 AC 01/17 SC 1210 Insulin Detemir 10 UNITS BID 01/17 1000 AC 01/17 SC 0843 Levothyroxine Sodium 0.075 MG DAILY AC 01/16 1251 AC 01/17 PO 0618 Melatonin 5 MG AT BEDTIME 01/17 2200 DC PO Melatonin 5 MG AT BEDTIME 01/16 2230 AC 01/16 PO 2217 Nystatin 1 BRIDGETTE BID 01/17 1233 AC TOP Potassium Chloride 20 MEQ Q8H 01/17 0130 DC 01/17 Dextrose/Sodium 1,000 ML IV 0130 Chloride Potassium Chloride 20 MEQ Q8H 01/16 1530 DC 01/16 Sodium Chloride 1,000 ML IV 1718 Sertraline HCl 100 MG DAILY 01/18 1000 AC PO Sertraline HCl 50 MG DAILY 01/16 1251 DC 01/17 PO 1208 Sodium Chloride 1,000 ML Q10H 01/17 0830 AC 01/17 IV 0845 Sodium Chloride 1,000 ML Q8H 01/16 1345 DC 01/16 IV 1401 Tamsulosin HCl 0.8 MG DAILY 01/16 1308 AC 01/17 PO 1209 Last 24 Hrs of Lab/Michael Results Last 24 Hrs of Labs/Mics: Laboratory Tests 01/17/17 1339: Sodium Pending, Potassium Pending, Chloride Pending, Carbon Dioxide Pending, Anion Gap Pending, BUN Pending, Creatinine Pending, BUN/Creatinine Ratio Pending 01/17/17 0412: Anion Gap 9, Estimated GFR 31 L, BUN/Creatinine Ratio 32.9 H, CBC w Diff MAN DIFF ORDERED, RBC 3.38 L, MCV 87.8, MCH 29.3, RDW 15.2 H, MPV 7.3 L, Gran % 92.9 H, Lymphocytes % 3.7 L, Monocytes % 3.1, Eosinophils % 0.2, Basophils % 0.1, Absolute Granulocytes 9.5 H, Segmented Neutrophils 91 H, Band Neutrophils 3, Absolute Lymphocytes 0.4 L, Lymphocytes 3 L, Monocytes 3, Absolute Monocytes 0.3, Absolute Eosinophils 0, Absolute Basophils 0, Platelet Estimate ADEQUATE, Polychromasia 1+, Basophilic Stippling SLIGHT, Ovalocytes FEW, PUBS MCHC 33.4, Fld Total RBCs Counted 100 01/16/17 2225: Anion Gap 12, Estimated GFR 33 L, Glucose 321 H, Calcium 8.9, Phosphorus 3.2, Magnesium 1.9, Total Bilirubin 0.4, AST 18, ALT 30, Albumin 2.5 L 01/16/17 1825: Glucose 480 H 01/16/17 1825: Anion Gap 15, Estimated GFR 30 L, BUN/Creatinine Ratio 32.7 H 01/16/17 1645: Glucose 525 *H 01/16/17 1414: Anion Gap 19 H, Estimated GFR 30 L, BUN/Creatinine Ratio 32.3 H, Glucose 654 *H Microbiology 01/16 1835 BLOOD: Blood Culture - RES 01/16 1825 BLOOD: Blood Culture - RES 01/16 1630 UPPER RESP: Surveillance Culture - RECD 01/16 1630 GI: Surveillance Culture - RECD Assessment/Plan Assessment: 71 year old man with past medical history of insulin-dependent diabetes mellitus type 1, hypothyroidism, BPH, recurrent UTIs, and depression brought in by ambulance after sustaining a mechanical fall where he was unable to get up. #Diabetes Ketoacidosis #Insulin-dependent Diabetes Mellitus Type 1 Patient with history of insulin-dependent type one diabetes mellitus and medication noncompliance. Patient was recently hospitalized at [facility] from 07/14/16 - 07/17/16 for hyperglycemia and urinary tract infection for which he was subsequent discharged to home with diabetic medications and oral antibiotics. Glucose elevated to 889 with positive anion gap 28 with low bicarbonate; acetone was positive. Patient was started on an insulin drip with endocrinology consult placed and admitted to the ICU for further monitoring. Fingersticks were checked hourly while on the insulin drip, fluids were adjusted to contain potassium when the level dropped below 5. Glucose dropped to acceptable ranges and serum chemistries demonstrated normalization of the bicarbonate and anion gap. Subcutaneous long activing insulin was overlapped with the insulin drip prior to being discontinued. Patient was transferred to the general medicine floor for further care. 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 Patient does not take his medications anymore and endorses thoughts of passive suicidality. Psych/Social work consults were placed, zoloft increased to 100mg daily and abilify was started. -Zoloft 100mg PO Daily -Abilify 2mg PO Daily started -Psych Consult -SW consult Heart Health-Aspirin 162mg PO Daily Hyperlipidemia-Atorvastatin 10mg PO Daily Hypothyroidism-Levothyroxine 75mcg PO Daily Pain Plan-Acetaminophen Diet-Diabetic Diet DVT PPx-subcutaneous heparin Code Status-DNR/DNI Problem List: 1. DIABETIC KETOACIDOSIS 2. Acute renal injury 3. Depression 4. BPH Pain Ratin Pain Location: None Pain Goal: Remain pain free Pain Plan: See assessment Tomorrow's Labs & Rationales: CBC BEP Consulting Request: Consulting Specialty: Endocrinology MAILE KOHLER,MALIK 01/17/17 1445: Attending MD Review Statement Attending Statement Attending MD Statement: examined this patient, discuss w/resident/PA/[employer]SISTANT FOOTBALL COACH, agreed w/resident/PA/ASSISTANT FOOTBALL COACH, reviewed EMR data (avail), discussed with nursing, discussed with case mgmt Attending Assessment/Plan: Overall patient is doing better. However he still is appears depressed and is very tearful. He is 71-year-old with past medical history of hypothyroidism, diabetes on insulin and BPH who was admitted to the ICU in DKA after not taking his diabetic meds for over 2 months. His gap has closed nicely and we overlapped him with long-acting insulin. Appreciate endocrine follow-up. Given the normal TSH and free T4, the plan is to follow him off thyroid hormone replacement therapy. His GIULIANA has not resolved despite aggressive hydration and given the history of BPH we are getting a renal ultrasound to rule out obstruction. He needs psych eval for depressive symptoms that have led to noncompliance with insulin, he needs a social work eval for the home situation. In addition he is getting ongoing PT and will follow-up closely.
[2017-01-17 08:00] VITALS: BP 100/60
--- NOTE | 2017-01-17 10:15 | PN- Diabetes ---
Assessment/Plan Assessment: Patient has had hx of major depression, DM type 1 and hypothyroidism. He stopped all his medications on his own after he became very depressed and he will be admitted to ICU for DKA. He was treated with IV fluids and insulin drip and his DKA resolved. But his creatinine level remains elevated. Patient would like to eat meals. He was off on thyroid medication for a while as well. Repeat TSH 4.03 and free T4 0.87. Plan: 1. as his repeat TFT is in the normal range, I will hold off on thyroid hormone replacement at this point. 2. DM type 1: --- start Levemir 10 units twice a day; ---start Novolog coverage before meals and Novolog coverage at bedtime-- detail see the inpatient DM orders; ---change IVF to NS at 100 ml/hour; ---monitor FSGs; ---monitor electrolytes and renal function later today will follow. Inpatient Diabetes Orders Before Each Meal: Bolus Insulin: Novolog < 80 mg/dl: no coverage 80-100 mg/dl: 4 units 101-120 mg/dl: 4 units 121-150 mg/dl: 4 units 151-200 mg/dl: 6 units 201-250 mg/dl: 8 units 251-300 mg/dl: 10 units 301-350 mg/dl: 12 units 351-400 mg/dl: 14 units > 400 mg/dl: 14 units Bedtime: Bolus Insulin: Novolog < 80 mg/dl: no coverage 80-100 mg/dl: no coverage 101-120 mg/dl: no coverage 121-150 mg/dl: no coverage 151-200 mg/dl: no coverage 201-250 mg/dl: no coverage 251-300 mg/dl: 2 units 301-350 mg/dl: 3 units 351-400 mg/dl: 4 units > 400 mg/dl: 5 units Subjective Subjective: He still feels depressed. Psychiatric team has seen him. Objective Last 24 Hrs of Vital Signs/I&O Vital Signs Date Time Temp Pulse Resp B/P B/P Pulse O2 O2 Flow FiO2 Mean Ox Delivery Rate 01/17 0800 100.0 90 18 100/60 96 Room Air 01/17 0400 96 Room Air 01/17 0000 95 Room Air 01/17 0000 98.5 91 12 92/50 95 Room Air 01/16 2000 97 Room Air 01/16 1600 98.3 90 18 100/59 96 Room Air / 1600 96 Room Air 01/16 1501 98.2 91 18 101/51 97 Room Air 01/16 1404 98.6 87 18 110/53 98 Room Air 01/16 1347 98.1 89 18 114/58 07/ 1300 98.1 89 18 114/58 99 Room Air 01/16 1142 98.4 99 18 104/51 98 Room Air 01/16 1110 95 Room Air Intake & Output 01/17 1600 01/17 0800 07 0000 Intake Total 1182 3108.9 Output Total 700 250 Balance 482 2858.9 Intake, IV 1032 2988.9 Intake, Oral 150 120 Number 0 0 Bowel Movements Output, Urine 700 250 Patient 146 lb 146 lb 135 lb Weight Weight Bed scale Bed scale Measurement Method Findings Pertinent Lab/Michael Results: Laboratory Tests 01/17 01/16 01/16 0412 2225 1825 Chemistry Sodium (137 - 145 mmol/L) 131 L 129 L Potassium (3.5 - 5.1 mmol/L) 4.0 3.9 Chloride (98 - 107 mmol/L) 98 95 L Carbon Dioxide (22 - 30 mmol/L) 24 22 Anion Gap (5 - 16) 9 12 BUN (9 - 20 mg/dL) 69 H 72 H Creatinine (0.7 - 1.2 mg/dL) 2.1 H 2.0 H Estimated GFR (>60 ml/min) 31 L 33 L BUN/Creatinine Ratio (7 - 25 %) 32.9 H Glucose (65 - 99 mg/dL) 321 H 480 H Calcium (8.4 - 10.2 mg/dL) 8.9 Phosphorus (2.5 - 4.5 mg/dL) 3.2 Magnesium (1.6 - 2.3 mg/dL) 1.9 Total Bilirubin (0.2 - 1.3 mg/dL) 0.4 AST (17 - 59 U/L) 18 ALT (21 - 72 U/L) 30 Albumin (3.5 - 5.0 g/dL) 2.5 L Hematology CBC w Diff MAN DIFF ORDERED WBC (4.8 - 10.8 /CUMM) 10.2 RBC (4.70 - 6.10 /CUMM) 3.38 L Hgb (14.0 - 18.0 G/DL) 9.9 L Hct (42 - 52 %) 29.6 L MCV (80.0 - 94.0 FL) 87.8 MCH (27.0 - 31.0 PG) 29.3 RDW (11.5 - 14.5 %) 15.2 H Plt Count (130 - 400 /CUMM) 129 L MPV (7.4 - 10.4 FL) 7.3 L Gran % (42.2 - 75.2 %) 92.9 H Lymphocytes % (20.5 - 51.1 %) 3.7 L Monocytes % (1.7 - 9.3 %) 3.1 Eosinophils % (0 - 5 %) 0.2 Basophils % (0.0 - 2.0 %) 0.1 Absolute Granulocytes (1.4 - 6.5 /CUMM) 9.5 H Segmented Neutrophils (42.2 - 75.2 %) 91 H Band Neutrophils (0.0 - 5.0 %) 3 Absolute Lymphocytes (1.2 - 3.4 /CUMM) 0.4 L Lymphocytes (20.5 - 51.1 %) 3 L Monocytes (1.7 - 9.3 %) 3 Absolute Monocytes (0.10 - 0.60 /CUMM) 0.3 Absolute Eosinophils (0.0 - 0.7 /CUMM) 0 Absolute Basophils (0.0 - 0.2 /CUMM) 0 Platelet Estimate (ADEQUATE) ADEQUATE Polychromasia 1+ Basophilic Stippling SLIGHT Ovalocytes FEW PUBS MCHC (33.0 - 37.0 G/DL) 33.4 Other Body Source Fld Total RBCs Counted (%) 100 01/16 01/16 01/16 1825 1645 1414 Chemistry Sodium (137 - 145 mmol/L) 129 L 128 L Potassium (3.5 - 5.1 mmol/L) 4.1 4.3 Chloride (98 - 107 mmol/L) 92 L 90 L Carbon Dioxide (22 - 30 mmol/L) 22 18 L Anion Gap (5 - 16) 15 19 H BUN (9 - 20 mg/dL) 72 H 71 H Creatinine (0.7 - 1.2 mg/dL) 2.2 H 2.2 H Estimated GFR (>60 ml/min) 30 L 30 L BUN/Creatinine Ratio (7 - 25 %) 32.7 H 32.3 H Glucose (65 - 99 mg/dL) 525 *H 654 *H 07/04 07/04 1147 1057 Blood Gas Bicarbonate Actual (22 - 26 MEQ/L) 15 L Mixed VBG pH (7.31 - 7.41 PH) 7.26 L Mixed VBG pCO2 (41 - 51 TORR) 35 L Mixed VBG O2 Saturation (35 - 45 TORR) 31 L P-50 (Temp Corrected) N Carboxyhemoglobin (1.5 - 5.0 %) 0.4 L O2 Concentration % .21 Temperature (97.0 - 100.0 FARH) 98.6 O2 Delivery Method RA Miscellaneous Phlebotomy Draw Site RIGHT AC Urines Urine Color (YEL,AMB,STR) BLDY H Urine Clarity (CLEAR) CLDY H Urine pH (5.0 - 8.0) 6.0 Ur Specific [place] (1.001 - 1.035) 1.020 Urine Protein (NEG,<30 MG/DL) >=300 H Urine Ketones (NEG) 15 H Urine Nitrite (NEG) NEG Urine Bilirubin (NEG) NEG@ICTO Urine Urobilinogen (0.1 - 1.0 EU/dl) 0.2 Ur Leukocyte Esterase (NEG) MOD H Ur Microscopic SEDIMENT EXAMINED Urine RBC (0 - 5 /HPF) >75 H Urine WBC (0 - 2 /HPF) > 75 H Ur Epithelial Cells (NONE,FEW) RARE Urine Bacteria (NEG/NONE) MANY H Urine Hemoglobin (NEG) LARGE H Urine Glucose (N MG/DL) >=1000 H 01/16 1055 Chemistry Sodium (137 - 145 mmol/L) 125 L Potassium (3.5 - 5.1 mmol/L) 5.4 H Chloride (98 - 107 mmol/L) 84 L Carbon Dioxide (22 - 30 mmol/L) 13 L Anion Gap (5 - 16) 28 H BUN (9 - 20 mg/dL) 76 H Creatinine (0.7 - 1.2 mg/dL) 2.5 H Estimated GFR (>60 ml/min) 26 L BUN/Creatinine Ratio (7 - 25 %) 30.4 H Glucose (65 - 99 mg/dL) 889 *H Calcium (8.4 - 10.2 mg/dL) 9.4 Total Bilirubin (0.2 - 1.3 mg/dL) 0.7 AST (17 - 59 U/L) 21 ALT (21 - 72 U/L) 30 Alkaline Phosphatase (< 127 U/L) 119 Troponin I (<0.11 ng/ml) < 0.01 Total Protein (6.3 - 8.2 g/dL) 5.6 L Albumin (3.5 - 5.0 g/dL) 3.2 L Globulin (1.9 - 4.2 gm/dL) 2.4 Albumin/Globulin Ratio (1.1 - 2.2 %) 1.3 TSH (0.270 - 4.200 uIU/mL) 4.030 Free T4 (0.78 - 2.44 ng/dL) 0.87 Hematology CBC w Diff MAN DIFF ORDERED WBC (4.8 - 10.8 /CUMM) 16.2 H RBC (4.70 - 6.10 /CUMM) 4.09 L Hgb (14.0 - 18.0 G/DL) 11.9 L Hct (42 - 52 %) 36.6 L MCV (80.0 - 94.0 FL) 89.7 MCH (27.0 - 31.0 PG) 29.2 RDW (11.5 - 14.5 %) 15.3 H Plt Count (130 - 400 /CUMM) 169 MPV (7.4 - 10.4 FL) 7.4 Gran % (42.2 - 75.2 %) 95.2 H Lymphocytes % (20.5 - 51.1 %) 2.0 L Monocytes % (1.7 - 9.3 %) 2.8 Eosinophils % (0 - 5 %) 0 Basophils % (0.0 - 2.0 %) 0 L Absolute Granulocytes (1.4 - 6.5 /CUMM) 15.4 H Absolute Lymphocytes (1.2 - 3.4 /CUMM) 0.3 L Absolute Monocytes (0.10 - 0.60 /CUMM) 0.5 Absolute Eosinophils (0.0 - 0.7 /CUMM) 0 Absolute Basophils (0.0 - 0.2 /CUMM) 0 Normocytic RBCs VERIFIED Normochromic RBCs VERIFIED PUBS MCHC (33.0 - 37.0 G/DL) 32.6 L Toxicology Acetone Level (NEGATIVE) POSITIVE AT 1:16 DIL
--- NOTE | 2017-01-17 10:20 | Cons- Psychiatry ---
Psychiatric Consult Date of Consult: 01/17/17 Reason for Consult: "Depression" Dr. Mishra attending History of Present Illness: Identifying Info: 71-year-old male presents to [facility] emergency department on 01/16/2017 with high blood sugar after self discontinuing his insulin. Admitted to critical care unit in DKA. CC: "I lost everybody." HPI: Patient reports that he's been depressed for a long period of time. He mostly attributes this to loneliness and deaths of friends and loved ones. His brother reportedly recently. He states he has not taken his medication in "a while." He is unable to quantify how long at this point and does endorse some confusion. Per ED report over 2 months. He denies that this was a deliberate attempt to harm himself, rather he just didn't feel like taking them due to depression. He has been unable to eat and has been losing weight. This is his third such presentation. Collateral obtained from therapist Jolene Mathew of [facility] ([phone]) who he sees twice monthly. She reports that the patient has often been depressed, he's been dealing with a lot of loss but his coping skills have been improving. He was last seen 1 week ago. At that time she was feeling ill and complained that food didn't taste good to him. He reported losing 70lbs over an unknown period of time. He was very frustrated. He has been hesitant to engage in group therapy in the past despite frequent encouragement to attend grief group. He has always denied suicidality to her. His next appointment is with her on January 31. Updated medication list obtained. PMH: Please see the H&P for a complete listing Type 1 diabetes mellitus, hypothyroidism, BPH, urinary tract infection Past Psych History: -Outpatient Therapist Jolene Mathew of [facility] Prescriber Tracy Haro APRN of [facility] -Inpatient Denies 2 previous consult service evaluations for similar presentations, 1 in May 2011 and 1 in October 2015. Family Psych History: Not obtained Substance History Denies, former smoker -Treatment None Family Substance History: Mother and father ETOH Social: . Currently resides at the 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 The patient worked for [employer] for 24 years, before the facility closed, leaving him unemployed 9 years ago. He states that he developed skin cancer at that same time. Abuse/Trauma: Mutliple deaths and losses Current Home Psychotropic Medications: Sertraline 50 mg Abilify 2 mg Current Hospital Psychotropic Medications: Med Melatonin 5 MG PO AT BEDTIME 01/16/17 2230 Sertraline HCl 50 MG PO DAILY 01/16/17 1251 Allergies: Coded Allergies: NO KNOWN ALLERGIES (10/26/15) Current Medications: Current Medications Sig/Marleny Start time Last Medication Dose Route Stop Time Status Admin Acetaminophen 650 MG Q6P PRN 01/16 1245 AC PO Aspirin Buffered 162 MG DAILY 01/16 1250 AC 01/16 PO 1347 Atorvastatin Calcium 10 MG 1700 01/16 1700 AC 01/16 PO 1719 Ceftriaxone Sodium 1,000 MG Q24H 01/16 1400 AC 01/16 IV 1337 Ceftriaxone Sodium 0 .STK-MED ONE 01/16 1338 DC .ROUTE Heparin Sodium 5,000 UNIT Q8 01/16 1400 AC 01/17 (Porcine) SC 0625 Heparin Sodium 0 .STK-MED ONE 01/16 1338 DC (Porcine) .ROUTE Insulin Aspart 0 TIDAC/HS 01/17 1200 AC SC Insulin Detemir 10 UNITS BID 01/17 1000 AC 01/17 SC 0843 Insulin Human Regular 100 UNIT ONCE ONE 01/16 1145 DC 01/16 Sodium Chloride 100 ML IV 01/16 1146 1209 Insulin Human Regular 8 UNITS ONCE ONE 01/16 1145 DC 01/16 IV 01/16 1146 1150 Levothyroxine Sodium 0.075 MG DAILY AC 01/16 1251 AC 01/17 PO 0618 Melatonin 5 MG AT BEDTIME 01/17 2200 DC PO Melatonin 5 MG AT BEDTIME 01/16 2230 AC 01/16 PO 2217 Potassium Chloride 20 MEQ Q8H 01/17 0130 DC 01/17 Dextrose/Sodium 1,000 ML IV 0130 Chloride Potassium Chloride 20 MEQ Q8H 01/16 1530 DC 01/16 Sodium Chloride 1,000 ML IV 1718 Sertraline HCl 50 MG DAILY 01/16 1251 AC 01/16 PO 1347 Sodium Chloride 1,000 ML Q10H / 0830 AC 01/17 IV 0845 Sodium Chloride 1,000 ML Q8H / 1345 DC 01/16 IV 1401 Sodium Chloride 1,000 ML BOLUS ONE 01/16 1045 DC 01/16 IV 01/16 1144 1058 Sodium Chloride 1,000 ML BOLUS ONE 01/16 1045 DC 01/16 IV 01/16 1144 1058 Tamsulosin HCl 0.8 MG DAILY 01/16 1308 AC 01/16 PO 1347 Past History Past Medical History Neurological: NONE EENT: NONE Cardiovascular: NONE Respiratory: NONE Gastrointestinal: NONE Hepatic: NONE Renal: benign prost hyperplasia, FREQUENT UTI'S Musculoskeletal: falls Psychiatric: depression Endocrine: diabetic ketoacidosis, hypothyroidism, DM type 1 Blood Disorders: NONE 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: NONE Past Surgical History Surgical History: HERNIA REPAIR Psychosocial History Strengths/Capabilities: Expresses desire to feel better Physical Limitations (Interventions): multiple medical issues and chronic noncompliance medications Psychiatric Treatment History Psych Treatment Psychiatric Treatment Yes (as above) Diagnosis: Major depressive disorder, recurrent, severe Risk Factors: age (under 24/over 65), chronic/serious med cond., high anxiety/ distress, male, limited support Substance Use/Abuse History Drug Use/Abuse Substances Used/Abused No Substance Abuse Treatment Substance Abuse Treatment Past Substance Abuse [place] No Assessment/Plan Mental Status Mental Status Exam: Mental Status Exam Presentation/Appearance: Cooperative with evaluation. [facility]. Orientation: Oriented to self and place, states year is 1974 and month is July Sensorium: Awake and alert Eye contact: Appropriate Affect: Flat Mood: Depressed Depression: Endorses Anxiety: Denies Thought Content: - Denies SI/HI, AH/VH, PI. States and also believes they will not kill themselves. - Denies Hopeless/Helpless Thoughts Thought Process: Linear with mild confusion noted Associations: Appropriate Speech: Soft Judgment: Poor Insight: Poor Cognition: Memory: Endorses deficits Attention/Concentration: Endorses deficits Fund of Knowledge: Adequate Abstractions: Did not assess MMSE: Did not assess Brief ROS Gait: Not observed Sleep: Adequate Appetite: Poor Energy: Low IADLs/ADLs: Reports independent Lab Results: Laboratory Tests 01/17/17 0412: Anion Gap 9, Estimated GFR 31 L, BUN/Creatinine Ratio 32.9 H, CBC w Diff MAN DIFF ORDERED, RBC 3.38 L, MCV 87.8, MCH 29.3, RDW 15.2 H, MPV 7.3 L, Gran % 92.9 H, Lymphocytes % 3.7 L, Monocytes % 3.1, Eosinophils % 0.2, Basophils % 0.1, Absolute Granulocytes 9.5 H, Segmented Neutrophils 91 H, Band Neutrophils 3, Absolute Lymphocytes 0.4 L, Lymphocytes 3 L, Monocytes 3, Absolute Monocytes 0.3, Absolute Eosinophils 0, Absolute Basophils 0, Platelet Estimate ADEQUATE, Polychromasia 1+, Basophilic Stippling SLIGHT, Ovalocytes FEW, PUBS MCHC 33.4, Fld Total RBCs Counted 100 01/16/17 2225: Anion Gap 12, Estimated GFR 33 L, Glucose 321 H, Calcium 8.9, Phosphorus 3.2, Magnesium 1.9, Total Bilirubin 0.4, AST 18, ALT 30, Albumin 2.5 L 01/16/17 1825: Glucose 480 H 01/16/17 1825: Anion Gap 15, Estimated GFR 30 L, BUN/Creatinine Ratio 32.7 H 01/16/17 1645: Glucose 525 *H 01/16/17 1414: Anion Gap 19 H, Estimated GFR 30 L, BUN/Creatinine Ratio 32.3 H, Glucose 654 *H 01/16/17 1147: Urine Color BLDY H, Urine Clarity CLDY H, Urine pH 6.0, Ur Specific [place] 1.020, Urine Protein >=300 H, Urine Ketones 15 H, Urine Nitrite NEG, Urine Bilirubin NEG@ICTO, Urine Urobilinogen 0.2, Ur Leukocyte Esterase MOD H, Ur Microscopic SEDIMENT EXAMINED, Urine RBC >75 H, Urine WBC > 75 H, Ur Epithelial Cells RARE, Urine Bacteria MANY H, Urine Hemoglobin LARGE H, Urine Glucose >=1000 H 01/16/17 1057: Bicarbonate Actual 15 L, Mixed VBG pH 7.26 L, Mixed VBG pCO2 35 L, Mixed VBG O2 Saturation 31 L, P-50 (Temp Corrected) N, Carboxyhemoglobin 0.4 L, O2 Concentration % .21, Temperature 98.6, O2 Delivery Method RA, Phlebotomy Draw Site RIGHT AC 01/16/17 1055: Anion Gap 28 H, Estimated GFR 26 L, BUN/Creatinine Ratio 30.4 H, Glucose 889 *H, Calcium 9.4, Total Bilirubin 0.7, AST 21, ALT 30, Alkaline Phosphatase 119, Troponin I < 0.01, Total Protein 5.6 L, Albumin 3.2 L, Globulin 2.4, Albumin/ Globulin Ratio 1.3, TSH 4.030, Free T4 0.87, CBC w Diff MAN DIFF ORDERED, RBC 4.09 L, MCV 89.7, MCH 29.2, RDW 15.3 H, MPV 7.4, Gran % 95.2 H, Lymphocytes % 2.0 L, Monocytes % 2.8, Eosinophils % 0, Basophils % 0 L, Absolute Granulocytes 15.4 H, Absolute Lymphocytes 0.3 L, Absolute Monocytes 0.5, Absolute Eosinophils 0, Absolute Basophils 0, Normocytic RBCs VERIFIED, Normochromic RBCs VERIFIED, PUBS MCHC 32.6 L, Acetone Level POSITIVE AT 1:16 DIL Microbiology 01/16 1835 BLOOD: Blood Culture - RECD 01/16 1825 BLOOD: Blood Culture - RECD 01/16 1630 UPPER RESP: Surveillance Culture - RECD 01/16 1630 GI: Surveillance Culture - RECD 01/16 1253 URINE ROUT: Urine Culture - CAN Cancelled: Cancelled via OE: ADDED ON, ALREADY IN LAB 01/16 1147 URINE ROUT: Urine Culture - RES GRAM NEGATIVE RODS Diffential Diagnosis: Major depressive disorder, recurrent, severe Delirium due to to DKA, mild Impression: 71-year-old male presents with extremely poor mood which he attributes to multiple deaths and losses including his brother. He has not been taking care of his medical needs and may not been taking medication for up to 2 months. Additionally he is somewhat confused likely attributable to the DKA. This patient would likely benefit from intensive outpatient therapy if he would be agreeable to it. Provisional Treatment Plan: 1. Plan to increase Zoloft to 100mg daily on 01/23/17. 2. Please start Abilify 2mg PO QAM. 3. Follow-up appointment with therapist Jolene Mathew of [facility] ([phone] ) on January 29. We will consider IOP referral. 4. Please continue to avoid benzodiazepines, opioid analgesics, and meds with strong anticholinergic properties as much as possible to prevent further confusion. 5. Please initiate the following nonpharmacologic interventions: -Avoid nursing and medical procedures during sleep hours whenever possible - Cluster at night interventions that must be completed as much as possible to minimize sleep disruption - Decrease noise patient area during sleeping hours - Reduce lighting at night - Ensure patient has any sensory aids close by that he regularly uses Thank you for including psychiatry in this case we will continue to follow.
--- NOTE | 2017-01-17 11:00 | NUR ---
PHYSICAL THERAPY WORKED WITH PATIENT, OOB TO CHAIR. WHILE WORKING WITH PATIENT, SITTING AT SIDE OF BED, PATIENT REPORTED FEELING DIZZY. BP AT THE TIME 92/24. PT NEHAL REPORTED PATIENT FELT THE MOST DIZZY WHILE STANDING AND SITTING IN RECLINER. HOB LAYED FLAT WITH LEGS ELEVATED ON MULTIPLE PILLOWS. RECHECKED BP AT 1050, 87/43. NOTIFIED DR CANNON, IVF INCREASED TO 125ML/HR. REPEAT BP AT 1100, 97/54. PATIENT REPORTED FEELING MUCH BETTER, NO DIZZINESS. PATIENT MAINTAINED WITH HOB DOWN WITH LEGS ELEVATED IN RECLINER. CALL SOTO IN REACH. URINAL AT SIDE. REVIEWED W/ PATIENT NOT TO GET OOB WITHOUT ASSISTANCE. WILL CONTINUE TO MONITOR.
[2017-01-17 12:00] VITALS: BP 100/54
--- NOTE | 2017-01-17 13:41 | Transfer of Care Summary ---
Hospital Course Course Hospital Course: 71 year old man with past medical history of insulin-dependent type 1 diabetes mellitus, hypothyroidism, BPH, and recurrent UTI broguht in by ambulance after being found on the floor. Patient reported feeling very weak and tired which caused him to slip and fall to the floor. He denied loss of conscious or headstrike, he was not able to get up from the floor himself. He [place] [facility] that he reportedly used to work at since the of his brother that he lived with. He endorses passive suicidal ideation. He is noncompliant with his medications. Vital signs were within normal limits upon initial ED evaluation with physical examiation remarkable only for an elderly gentleman appearing depressed, tearful , and dehydrated. Labs were significant for WBC 16.2, Hgb/Hct 11.9/36.6, Na 125, K 5.4, BUN/Cr 76/2.6, Glucose 889, Anion Gap 28, normal LFTs, negative troponin, Positive Acetone. UA: WBC >75, large hemoglobin, many bacteria Endocrinology consult was placed from ED and patient was begun on an insulin drip and intravenous fluids, Ceftriaxone was begun for his urinary tract infection. Patient was admitted to the ICU for further managment of DKA, GIULIANA, and UTI. Serum chemistries were monitored frequently and potassium was added to normal saline when his potassium dropped below 5. Bicarbonate normalized and gap closed. Patient was begun on long acting subcutaneous insulin overlapped with the insulin drip for one hour which was then discontinued. Psychiatry consult was placed for his passive suicial ideation, zoloft was increased and ability was started. For further evaluation of his elevated creatinine and history of BPH a renal ultrasounds was obtained. Patient is deemed medically stable and is to be transferred to general medicine for further evaluation. Problem List on Transfer: -DKA, resolved -Insulin-dependent diabetes mellitus, on Novolog/Levemir -Acute Kidney Injury -Urinary tract infection, on Ceftriaxone -History of BPH, on flomax -Depression -Hypothyroidism Follow up: -Renal Ultrasound, if evidence of urinary outlet obstruction place urology consult -Follow up cultures & sensitivies -Follow endocrine, psych recommendations daily -Patient was started on abilify, prescribe on discharge if needed Assessment/Plan: See above
--- NOTE | 2017-01-17 13:45 | NUR ---
TRANSFERED TO ROOM 219-1. BELONGINGS WITH PATIENT. REPORT GIVEN TO COLTON HORNE. PATIENT ALERT AND ORIENTED X3. NO COMPLAINTS OF PAIN. IVF MAINTAINED AT 125 ML/HR.
[2017-01-17 14:17] VITALS: BP 102/60
--- NOTE | 2017-01-17 17:54 | ULTRASOUND REPORT ---
EXAMINATION: US RETROPERITONEAL COMPLETE (RENAL) CLINICAL INFORMATION: Evaluate for renal disease. Worsening creatinine. COMPARISON: CT abdomen and pelvis dated 06/02/2011 TECHNIQUE: Real-time imaging of the kidneys and bladder. FINDINGS: RIGHT KIDNEY: 11.9 x 6.3 x 5.8 cm (SAG x AP x TRV). Normal cortical echogenicity Renal cortical thickness is normal. Exophytic cyst mid to lower outer right kidney measuring 7.3 x 4.8 x 7.2 cm. Tiny nonobstructing calculus lower pole right kidney measuring 0.4 x 0.3 cm. LEFT KIDNEY: 14.3 x 7.9 x 7.9 cm (SAG x AP x TRV). Enlarged right kidney. Normal cortical echogenicity and cortical thickness. No cortical lesions. No focal parenchymal lesions or hydronephrosis. Nonobstructing calculus identified in the mid left kidney measuring approximately 0.6 cm in maximal diameter. Additional subtle subcentimeter calculus in the lower pole is also suspected. BLADDER: Well-distended with debris in the dependent portion of the urinary bladder. Mild wall thickness along the left posterolateral wall.. Ureteric jets are not demonstrated. Prevoid bladder volume is 726 mL. Postvoid bladder volume is 348 mL. Heterogeneous enlarged prostate gland measuring approximately 6.4 x 4.2 x 4.8 cm. Total volume 68.2 mL. IMPRESSION: 1. Bilateral renal cysts. 2. Left-sided [id number] hydronephrosis. If clinically indicated, it can be further assessed with CT stone study. 3. Nonobstructing calculi bilateral kidneys. 4. Large postvoid residual and enlarged prostate gland. This may be resulting in bladder outlet obstruction.
[2017-01-17 21:50] VITALS: BP 80/46
[2017-01-17 22:30] VITALS: BP 80/46
--- NOTE | 2017-01-18 00:27 | NUR ---
NURSING NOTE: AFTER GETTING 2ND 500 ML BOLUS PTS BP 88/44. PT DENIES SYMPTOMS. 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 PT RECEVING NS @ 125 ML/HR PER EMAR. NO FURTHER ORDERS AT THIS TIME. WILL CONTINUE TO MONITOR.
[2017-01-18 00:33] VITALS: BP 88/44
--- NOTE | 2017-01-18 02:44 | NUR ---
PT BLADDER SCANNED FOR >517 PER CHRISTEN KHAN REQUEST. BP RECHECKED AND WAS 90/56. PT DENIES SYMPTOMS. PTS BLADDER IS SOFT/DISTENDED AND PT DENIES ANY ABDOMINAL PAIN OR DISCOMFORT. PT GIVEN URINAL TO ATTEMPT TO VOID ON OWN. MD NOTIFIED OF THESE FINDINGS AND WILL COME UP TO ASSESS PT. PT STILL CONTINUING TO RECEIVE NS @ 125 ML/HR PER EMAR AND MD REQUEST. WILL CONTINUE TO MONITOR.
[2017-01-18 02:49] VITALS: BP 90/56
--- NOTE | 2017-01-18 03:12 | NUR ---
NURSING NOTE: CHRISTEN KHAN MD CAME UP TO ASSESS PT AND STATES THAT SINCE PT IS CURRENTLY ASSYMPTOMATIC AND NOT C/O OF ANY ABDOMINAL PAIN OR DISCOMFORT NO STRAIGHT CATH OR SIDDIQUI AT THIS TIME DUE TO PTS BPH HISTORY. WILL CONTINUE TO MONITOR BP AND URINE OUTPUT CLOSELY.
--- NOTE | 2017-01-18 03:17 | Event Note ---
Event Note Event Note: S: Made aware of BP 80/46, and difficulty voiding B: 71 yo m with pmhx to T1D, hypothyroidism, depression, BPH admitted for DKA and UTI. We were informed by the evening team to follow up on an ultrasound and if evidence of obstruction a Urology consultation would be obtained in the AM. A/R: This patient was seen by the resident and recruitment internship. The patient has had a blood pressure of 80-90/46-56 throughout the night which is slightly lower than his normal BP. The patient states he did not have any lightheadedness and is currently feeling better than this morning. The nurse also bladder scanned the pt which revealed a volume of 517. We discuessed with options for the patient: 1 ) we would allow him to sleep, 2) we could straight cath here and 3) we would rescan his bladder 2 hours later (5am). The patient elected for option 3 and he advised us to wake up during this time even if he was sleeping. The patient is currently not experiencing any abdominal pain or symptoms of urinary urgency. He currently had the urinal in place and said he would attempt to void independentaly. The patient states he has had problems with urinary retention in his past admissions. He also states that during his last admission he was straight cath'ed but the patient states that the urine drained too quickly and he experience unpleasant symptoms. We also discuessed with the patient that he has been receiving a lot of fluids and to notify us if he has any new complaints or symptoms. 5.45 am: Called Nurse, for bladder re-scan results. Informed Patient was now 817 mL on bladder scan. Advised to straight cath the patient immediately. Also ordered to discontinue fluids. 6.20 am: Visited bedside. Approximately 624 mL of urine was drained. Patient hemodynaically stable. BS in the 60's nurse advised to give Juice Immediately. Signed out to AM team, Will obtain a urology consultation for additional recomendations.
--- NOTE | 2017-01-18 06:00 | NUR ---
NURSING NOTE: PT BLADDER SCANNED FOR >817. PER MD CHRISTEN KHAN REQUEST STRAIGHT CATH PT EVEN WITH PTS HISTORY OF BPH. PT BLADDER DISTENDED AND PT IS C/O OF DISCOMFORT. PT STRAIGHT CATHED FOR 625 ML DARK BENITO, CLEAR URINE. PT STATES THAT HE FEELS RELIEF AFTER BEING STRIAGHT CATHED. PTS BP 102/74 AND STILL RECEIVING IV FLUIDS AT 125 ML/HR. PTS BLOOD SUGAR 64 AND PT WAS ABLE TO DRINK 1 APPLE JUICE. WILL RECHECK BS AGAIN IN 15 MINUTES. NO FURTHER ORDERS AT THIS TIME. WILL CONTINUE TO MONITOR.
[2017-01-18 07:00] VITALS: BP 104/72
--- NOTE | 2017-01-18 07:48 | PN- Housestaff ---
JUANA KOHLER,[facility] 01/18/17 0748: Subjective Follow-up For: DKA GIULIANA UTI Subjective: Afebrile, stable, Saturating well on room air. Patient was sleepy and looked very lethargic.He did not sleep well all night because of abdominal discomfort from urinary retention. Review of Systems Constitutional: Reports: see HPI. Objective Last 24 Hrs of Vital Signs/I&O Vital Signs Date Time Temp Pulse Resp B/P B/P Pulse O2 O2 Flow FiO2 Mean Ox Delivery Rate 01/18 1428 97.6 74 20 110/58 95 Room Air 01/18 1013 110/60 01/18 0700 97.7 18 104/72 01/18 0249 90/56 01/18 0033 88/44 01/17 2230 97.6 78 20 80/46 95 01/17 2150 78 80/46 Intake & Output 01/18 1600 01/18 0800 01/18 0000 Intake Total 1125 1380 Output Total 725 200 Balance 400 1180 Intake, IV 1000 900 Intake, Oral 125 480 Output, Urine 725 200 Physical Exam General Appearance: Oriented X3, Cooperative Other Physical Findings: General-well developed, thin elderly man appearing tired/lethargic, but in no acute distress HEENT-NCAT, PERRL, EOMI, anicteric sclera, moist mucous membranes Cardio-S1, S2 w/o m/g/r;RRR Lung-CTA bilaterally Abdomen-Soft, nontender, nondistended, bowel sounds intact Neuro-Awake and alert, oriented to person/place/time, CN II-XII grossly intact Ext-normal pulses, normal capillary refill, no cyanosis/clubbing/edema Current Medications: Current Medications Sig/Marleny Start time Last Medication Dose Route Stop Time Status Admin Acetaminophen 650 MG .STK-MED ONE 01/17 1738 DC PO 01/17 1739 Acetaminophen 650 MG Q6P PRN 01/16 1245 AC 01/18 PO 1017 Aripiprazole 2 MG DAILY 01/17 1235 AC 01/18 PO 1243 Aspirin Buffered 162 MG DAILY 01/16 1250 AC 01/18 PO 1013 Atorvastatin Calcium 10 MG 1700 01/16 1700 AC 01/18 PO 1702 Ceftriaxone Sodium 1,000 MG Q24H 01/16 1400 AC 01/18 IV 1245 Dextrose/Sodium 1,000 ML Q13H 01/18 0730 AC 01/18 Chloride IV 0744 Heparin Sodium 5,000 UNIT Q8 01/16 1400 AC 01/18 (Porcine) SC 1244 Insulin Aspart 0 TIDAC/HS 01/18 0800 AC 01/18 SC 1703 Insulin Aspart 0 TIDAC/HS 01/17 1200 DC 01/17 SC 1730 Insulin Detemir 4 UNITS BID 01/18 2200 AC SC Insulin Detemir 5 UNITS BID 01/18 1000 DC SC Insulin Detemir 10 UNITS BID 01/18 1000 DC SC Insulin Detemir 8 UNITS BID 01/18 1000 DC SC Insulin Detemir 10 UNITS BID 01/17 1000 DC 01/17 SC 2155 Insulin Human Regular 0 Q6 01/18 1200 CAN SC Levothyroxine Sodium 0.075 MG DAILY AC 01/16 1251 DC 01/17 PO 0618 Melatonin 5 MG AT BEDTIME 01/16 2230 AC 01/17 PO 2155 Nystatin 1 BRIDGETTE BID 01/17 1233 AC 01/18 TOP 1013 Sertraline HCl 100 MG DAILY 01/18 1000 AC 01/18 PO 1244 Sodium Chloride 1,000 ML BOLUS ONE 01/17 2215 DC 01/17 IV 01/18 0014 2222 Sodium Chloride 1,000 ML Q10H 01/17 0830 DC 01/18 IV 0522 Tamsulosin HCl 0.8 MG DAILY 01/16 1308 AC 01/18 PO 1013 Last 24 Hrs of Lab/Michael Results Last 24 Hrs of Labs/Mics: Laboratory Tests 01/18/17 0725: Anion Gap 8, Estimated GFR 50 L, BUN/Creatinine Ratio 42.9 H, CBC w Diff NO MAN DIFF REQ, RBC 3.46 L, MCV 86.3, MCH 29.3, RDW 15.6 H, MPV 7.5, Gran % 91.6 H, Lymphocytes % 3.2 L, Monocytes % 5.1, Eosinophils % 0.1, Basophils % 0 L, Absolute Granulocytes 11.3 H, Absolute Lymphocytes 0.4 L, Absolute Monocytes 0.6, Absolute Eosinophils 0, Absolute Basophils 0, PUBS MCHC 33.9 Microbiology 01/18 1322 URINE ROUT: Urine Culture - RECD Assessment/Plan Assessment: 71 year old man with past medical history of insulin-dependent diabetes mellitus type 1, hypothyroidism, BPH, recurrent UTIs, and depression brought in by ambulance after sustaining a mechanical fall where he was unable to get up. Patient was transferred to the general medicine floor yesterday from ICU once stable for further care. #Diabetes Ketoacidosis: Resolved #Insulin-dependent Diabetes Mellitus Type 1 Patient had a hypoglysemic episode in morning (blood sugar 64) -Levemir reduced from 10 to 5 units units SC BID -Novolog SSI -Accuchecks TIDAC/HS -Endocrinology`following #Acute Kidney Injury - resolving (Cr down to 1.4 from 2.5) #History of Benign Prostatic Hypertrophy & Urinary Tract Infection -Ceftriaxone 1g IV Daily -Flomax 0.8mg PO Daily -Renal Ultrasound: Left-sided [id number] hydronephrosis. If clinically indicated, it can be further assessed with CT stone study.Large postvoid residual and enlarged prostate gland. This may be resulting in bladder outlet obstruction. -Urology consult placed awaiting recommendations. -Daily BEP -Follow up cultures & sensitivites #Depression / Passive Suicidality Patient reports living with his brother up until his for which he then moved into the [employer] that he used to work. Patient does not take his medications anymore and endorses thoughts of passive suicidality. Psych/Social work consults were placed, zoloft increased to 100mg daily and abilify was started. -Zoloft 100mg PO Daily -Abilify 2mg PO Daily started -Psych Consult -SW consult Heart Health-Aspirin 162mg PO Daily Hyperlipidemia-Atorvastatin 10mg PO Daily Hypothyroidism-Levothyroxine 75mcg PO Daily Pain Plan-Acetaminophen Diet-Diabetic Diet DVT PPx-subcutaneous heparin Code Status-DNR/DNI Problem List: 1. DIABETIC KETOACIDOSIS 2. Acute renal injury 3. BPH 4. Depression 5. Hyperglycemia 6. UTI (urinary tract infection) Pain Ratin Pain Location: None Pain Goal: Remain pain free Pain Plan: Pain Pathway Tomorrow's Labs & Rationales: CBC(UTI), BEP (Urinary tract obstruction) Consulting Request: Consulting Specialty: Endocrinology JANE AGUILAR MD 01/18/17 1258: Attending MD Review Statement Attending Statement Attending MD Statement: examined this patient, discuss w/resident/PA/PATIENT TRANSPORT OFFICER, agreed w/resident/PA/PATIENT TRANSPORT OFFICER, reviewed EMR data (avail) Attending Assessment/Plan: 71M PMH hypothyroidism, Type 1 DM, BPH admitted initially to ICU for diabetic ketoacidosis requiring insulin drip, now with closed anion gap and normalization of bicarb, course complicated by GIULIANA, urinary retention, and Klebsiella UTI. Patient with minimal urine output, 500mL retained on bladder scan. Slept poorly due to full bladder. Hypoglycemic overnight to 68, given apple juice, was not symptomatic. Glucose 94 this morning prior to receiving Levemir. Poor PO intake. Afebrile, hemodynamically stable. 1. Type 1 diabetic ketoacidosis 2. GIULIANA 3. Acute urinary retention 4. Obstructive uropathy 5. Hypoglycemia 6. Klebsiella UTI Plan - Continue on general medicine - Place Lemus catheter - Urology consult - Continue Flomax - Continue Ceftriaxone - Continue D5 1/2 NS - Follow endocrine recommendations - Continue to hold Levemir until glucose levels improve - Monitor renal function - Continue home medications - DVT Ppx
[2017-01-18 08:26] LABS: ABSOLUTE BASOPHIL COUNT 0 /CUMM (0.0-0.2); ABSOLUTE EOSINOPHIL COUNT 0 /CUMM (0.0-0.7); ABSOLUTE GRANULOCYTE CT 11.3 /CUMM (1.4-6.5); ABSOLUTE LYMPH COUNT 0.4 /CUMM (1.2-3.4); ABSOLUTE MONOCYTE COUNT 0.6 /CUMM (0.10-0.60); BASOPHIL % 0 % (0.0-2.0); EOSINOPHIL % 0.1 % (0-5); GRANULOCYTE % 91.6 % (42.2-75.2); HEMATOCRIT 29.8 % (42-52); MEAN CORPUSCULAR HGB 29.3 PG (27.0-31.0); MEAN CORPUSCULAR HGB CONC 33.9 G/DL (33.0-37.0); MEAN CORPUSCULAR VOLUME 86.3 FL (80.0-94.0); MEAN PLATELET VOLUME 7.5 FL (7.4-10.4); PLATELET COUNT 117 /CUMM (130-400); RBC DISTRIBUTION WIDTH 15.6 % (11.5-14.5); RED BLOOD CELL CT 3.46 /CUMM (4.70-6.10)
[2017-01-18 09:44] LABS: WHITE BLOOD CELL COUNT 12.4 /CUMM (4.8-10.8)
--- NOTE | 2017-01-18 12:27 | PN- Psychiatry ---
Assessment/Plan Impression: Identifying Info: 71-year-old male presents to [facility] emergency department on 01/16/2017 with high blood sugar after self discontinuing his insulin. Admitted to critical care unit in DKA, now downgraded to general medicine. SUBJECTIVE Patient states "I slept better last night and I have in a long time." Denies any mood disturbance today for anxiety. Continues to deny suicidal ideation. Endorses frustration due to feeling weak and his current urinary issues. He reports he would not be agreeable to IOP level of treatment because he would not like to engage in group therapy. He would like to follow-up with his previous treaters at [facility]. Case discussed with patient's prescriber Tracy Haro APRN of [facility]. She states she saw the patient 2 weeks ago and he was "on top of the world." He had started dating a new woman and he was very excited about the relationship. She reports that they previously pursued visiting nursing for this patient to improve medication compliance, however, due to his insurance he could not afford it as he is not homebound. Additionally due to the patient's recent weight loss and poor appetite they had discussed olanzapine as an option for adjunctive depression treatment as opposed to aripiprazole. She agrees with plan to increase Zoloft. Brief ROS Gait: Unassessed Sleep: Adequate Appetite: Poor OBJECTIVE Mental Status Exam Presentation/Appearance: Cooperative with evaluation. [facility] garb. Orientation: Oriented to self, place, situation and year Sensorium: Awake and alert Eye contact: Appropriate Affect: Blunted, avendaño range since yesterday Mood: "Alright" he appears depressed Depression: Denies today Anxiety: Denies Thought Content: - Denies SI/HI, AH/VH, PI. States and also believes they will not kill themselves. - Denies Hopeless/Helpless Thoughts Thought Process: Improved, more linear Associations: Appropriate Speech: Soft Judgment: Poor Insight: Fair Cognition: Memory: Endorses deficits Attention/Concentration: Endorses deficits Fund of Knowledge: Adequate Abstractions: Did not assess MMSE: Did not assess ASSESSMENT 71-year-old male presents with DKA in the context of medication noncompliance. In the emergency department he reported no meds 2 months however and discussing case with his outpatient treaters at appears she was medication compliant as recently as 2 weeks ago. At that time he appeared to be doing well. Both the patient and his outpatient treaters are agreeable with plan to increase Zoloft and consider olanzapine as an alternate agent to Abilify. Diagnosis Major depressive disorder, recurrent, severe Delirium due to to DKA, improved A total of 45 minutes was spent with the patient with more than 50% of the time spent in counseling and/or coordination of care. Suggestion: 1. Continue psychotropics as currently ordered. We will consider transition from Abilify to olanzapine due to patient's weight loss. 2. Follow-up appointment with therapist Jolene Mathew of [facility] ([phone] ) on January 29. 3. Please continue to avoid benzodiazepines, opioid analgesics, and meds with strong anticholinergic properties as much as possible to prevent further confusion. 4. Please continue the following nonpharmacologic interventions: -Avoid nursing and medical procedures during sleep hours whenever possible - Cluster at night interventions that must be completed as much as possible to minimize sleep disruption - Decrease noise patient area during sleeping hours - Reduce lighting at night - Ensure patient has any sensory aids close by that he regularly uses Thank you for including psychiatry in this case we will continue to follow. Subjective Subjective: as above Objective Last 24 Hrs of Vital Signs/I&O Current Medications Sig/Marleny Start time Last Medication Dose Route Stop Time Status Admin Acetaminophen 650 MG .STK-MED ONE 01/17 1738 DC PO 01/17 1739 Acetaminophen 650 MG Q6P PRN / 1245 AC 01/18 PO 1017 Aripiprazole 2 MG DAILY 01/17 1235 AC 01/17 PO 1909 Aspirin Buffered 162 MG DAILY 01/16 1250 AC 01/18 PO 1013 Atorvastatin Calcium 10 MG 1700 07/ 1700 AC 07/ PO 1730 Ceftriaxone Sodium 1,000 MG Q24H / 1400 AC / IV 1351 Dextrose/Sodium 1,000 ML Q13H 01/18 0730 AC 01/18 Chloride IV 0744 Heparin Sodium 5,000 UNIT Q8 / 1400 AC 01/18 (Porcine) SC 0522 Insulin Aspart 0 TIDAC/HS 01/18 0800 AC SC Insulin Aspart 0 TIDAC/HS 01/17 1200 DC 01/17 SC 1730 Insulin Detemir 4 UNITS BID 01/18 2200 AC SC Insulin Detemir 5 UNITS BID 01/18 1000 DC SC Insulin Detemir 10 UNITS BID 01/18 1000 DC SC Insulin Detemir 8 UNITS BID 01/18 1000 DC SC Insulin Detemir 10 UNITS BID 01/17 1000 DC 01/17 SC 2155 Insulin Human Regular 0 Q6 01/18 1200 CAN SC Levothyroxine Sodium 0.075 MG DAILY AC 01/16 1251 DC 01/17 PO 0618 Melatonin 5 MG AT BEDTIME 01/16 2230 AC 01/17 PO 2155 Nystatin 1 BRIDGETTE BID 01/17 1233 AC 01/18 TOP 1013 Sertraline HCl 100 MG DAILY 01/18 1000 AC PO Sertraline HCl 50 MG DAILY 01/16 1251 DC 01/17 PO 1208 Sodium Chloride 1,000 ML BOLUS ONE 01/17 2215 DC 01/17 IV 01/18 0014 2222 Sodium Chloride 1,000 ML Q10H 01/17 0830 DC 01/18 IV 0522 Tamsulosin HCl 0.8 MG DAILY 01/16 1308 AC 01/18 PO 1013 Laboratory Tests 01/18/17 0725: Anion Gap 8, Estimated GFR 50 L, BUN/Creatinine Ratio 42.9 H, CBC w Diff NO MAN DIFF REQ, RBC 3.46 L, MCV 86.3, MCH 29.3, RDW 15.6 H, MPV 7.5, Gran % 91.6 H, Lymphocytes % 3.2 L, Monocytes % 5.1, Eosinophils % 0.1, Basophils % 0 L, Absolute Granulocytes 11.3 H, Absolute Lymphocytes 0.4 L, Absolute Monocytes 0.6, Absolute Eosinophils 0, Absolute Basophils 0, PUBS MCHC 33.9 01/17/17 1339: Anion Gap 10, Estimated GFR 37 L, BUN/Creatinine Ratio 36.7 H Vital Signs Date Time Temp Pulse Resp B/P B/P Pulse O2 O2 Flow FiO2 Mean Ox Delivery Rate 01/18 1013 110/60 01/18 0700 97.7 18 104/72 01/18 0249 90/56 / 0033 88/44 01/17 2230 97.6 78 20 80/46 95 07/05 2150 78 80/46 / 1417 98.3 82 20 102/60 94 Room Air Intake & Output 01/18 1600 01/18 0800 07 0000 Intake Total 1125 1380 Output Total 725 200 Balance 400 1180 Intake, IV 1000 900 Intake, Oral 125 480 Output, Urine 725 200
--- NOTE | 2017-01-18 13:17 | PN- Diabetes ---
Assessment/Plan Assessment: Patient has had hx of major depression, DM type 1 and hypothyroidism. He stopped all his medications on his own after he became very depressed and he will be admitted to ICU for DKA. He was treated with IV fluids and insulin drip and his DKA resolved. But his creatinine level remains elevated. Patient would like to eat meals. He was off on thyroid medication for a while as well. Repeat TSH 4.03 and free T4 0.87. His thyroid medication gas been held. He was put on D5NS at 75 ml/hour, Levemir 10 units twice a day, Novolog coverage before meals and Novolog coverage at bedtime. His FSGs were 261, 131, 161, 64, 88 and 77. Plan: 1. Levemir was further decreased to 4 units twice a day; 2. recommend decreasing Novolog coverage before meals as well-- detail see the inpatient DM order; 3. monitor FSGs; 4. replete K; monitor electrolytes. will follow Inpatient Diabetes Orders Before Each Meal: Bolus Insulin: Novolog < 80 mg/dl: no coverage 80-100 mg/dl: 2 units 101-120 mg/dl: 2 units 121-150 mg/dl: 2 units 151-200 mg/dl: 4 units 201-250 mg/dl: 6 units 251-300 mg/dl: 8 units 301-350 mg/dl: 10 units 351-400 mg/dl: 11 units > 400 mg/dl: 12 units Subjective Subjective: He is still depressed. Objective Last 24 Hrs of Vital Signs/I&O Vital Signs Date Time Temp Pulse Resp B/P B/P Pulse O2 O2 Flow FiO2 Mean Ox Delivery Rate 01/18 1013 110/60 01/18 07 97.7 18 104/72 01/18 0249 90/56 01/18 0033 88/44 01/17 2230 97.6 78 20 80/46 95 07/05 2150 78 80/46 /05 1417 98.3 82 20 102/60 94 Room Air Intake & Output 01/18 1600 01/18 0800 01/18 0000 Intake Total 1125 1380 Output Total 725 200 Balance 400 1180 Intake, IV 1000 900 Intake, Oral 125 480 Output, Urine 725 200 Findings Pertinent Lab/Michael Results: Laboratory Tests 01/18 01/17 0725 1339 Chemistry Sodium (137 - 145 mmol/L) 134 L 129 L Potassium (3.5 - 5.1 mmol/L) 3.3 L 3.9 Chloride (98 - 107 mmol/L) 102 96 L Carbon Dioxide (22 - 30 mmol/L) 24 22 Anion Gap (5 - 16) 8 10 BUN (9 - 20 mg/dL) 60 H 66 H Creatinine (0.7 - 1.2 mg/dL) 1.4 H 1.8 H Estimated GFR (>60 ml/min) 50 L 37 L BUN/Creatinine Ratio (7 - 25 %) 42.9 H 36.7 H Hematology CBC w Diff NO MAN DIFF REQ WBC (4.8 - 10.8 /CUMM) 12.4 H RBC (4.70 - 6.10 /CUMM) 3.46 L Hgb (14.0 - 18.0 G/DL) 10.1 L Hct (42 - 52 %) 29.8 L MCV (80.0 - 94.0 FL) 86.3 MCH (27.0 - 31.0 PG) 29.3 RDW (11.5 - 14.5 %) 15.6 H Plt Count (130 - 400 /CUMM) 117 L MPV (7.4 - 10.4 FL) 7.5 Gran % (42.2 - 75.2 %) 91.6 H Lymphocytes % (20.5 - 51.1 %) 3.2 L Monocytes % (1.7 - 9.3 %) 5.1 Eosinophils % (0 - 5 %) 0.1 Basophils % (0.0 - 2.0 %) 0 L Absolute Granulocytes (1.4 - 6.5 /CUMM) 11.3 H Absolute Lymphocytes (1.2 - 3.4 /CUMM) 0.4 L Absolute Monocytes (0.10 - 0.60 /CUMM) 0.6 Absolute Eosinophils (0.0 - 0.7 /CUMM) 0 Absolute Basophils (0.0 - 0.2 /CUMM) 0 PUBS MCHC (33.0 - 37.0 G/DL) 33.9
[2017-01-18 14:28] VITALS: BP 110/58
--- NOTE | 2017-01-18 16:00 | NUR ---
Sw referral made electronically by MD Filiberto for help with meds and living. sw into see pt who was with a friend Ronnie cain [phone]. Pt gave permission to speak infront of him/ with him . Pt signed releases for his emergency contact julia Miramontesnon and [facility]. Pt was reporting discomfort/ pain during conversation and RN notified and attending to pt when sw left. Pt is a 71 y.o. 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 pt lost his brother about 2 years ago. 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 About 4 months ago pt lost his good friend Navneet. @ weeks ago his very good friend in his 49 suddenly . Thisman use to check in on pt daily and bring him breakfast and attend to pt's needs. Ronnie reports now that he thinks back he can see that pt was not caring for himself. not having insulan in frig and not having mmeds around. ronnie is w=aware pt had been loosong weight about 30- 35 lbs over 2-3 months. ronnie reports there was some thought a med was causing it but mmaybe it was increase depressive sx. Ronnie is aware and has brought pt to [facility] appointments- 2 x last week. Ronnie reports pt can speak hopelessly. ronnie does not report Pt stating SI. Pt denies SI . He denies a plan and intent to hurt himself. pt speaking of this thyroid, depression, wound on his butt (? protate) and diabeties getting him down. Pt reports he has the ability to pay for meds but just did not feel like taking them anymore. Pt and friend did not note pt did not have a place to stay or needed help form sw in this realm. Sw provided support and encourgement. Pt was uncomfortable and needed to speak with RN and sleep. Reanna collaborated with VALENTIN Zamarripa later in the day. Psych spoke with Care and obtained a follow up appointment for pt on january 29. VALENTIN Zamarripa cont to work with [facility] on meds to help with mood. Sw available upon request. Sw available upon request.
--- NOTE | 2017-01-18 18:20 | NUR ---
LATE ENTRY: THIS MORNING PT'S BS 88. POOR PO INTAKE. D5NS @75ML/HR ORDERED. MORNING DOSE OF LEVEMIR HELD. PT RECHECHED AT 1000, BS 98. PT VERY SLEEPY THROUGHOUT SHIFT, VSS. AXO. PT VERY WEAK, FED PT BREAKFAST. PT BLADDER SCANNED AT 1000 AM, 508ML IN BLADDER. PER MD KAT, RECHECK IN A COUPLE OF HOURS IN CASE PT VOIDS ON OWN. AT 1400 PT BLADDER SCANNED, 648ML SHOWED BY BLADDER SCANNER. MD KAT NOTIFIED. SIDDIQUI PLACED AT 1422. PT TOLERATED PROCEDURE WELL. 750ML OUTPUT. URINE SAMPLE SENT. AT DINNER, PT MORE AWAKE, PT ATE DINNER ON HIS OWN. CALL SOTO WITHIN REACH. SIZEWIZE MATTRESS ORDERED DUE TO PT'S LACK OF MOBILITY AND ABRASION TO L BUTTOCKS
--- NOTE | 2017-01-18 18:29 | Discharge Summary ---
Visit Information Visit Dates Admission Date: 01/16/17 Discharge Date: 01/20/2017 Hospital Course Course Attending Physician: JANE AGUILAR MD Primary Care Physician: VASQUEZ KOHLER,VASILE Chris Consulting Request: Consulting Specialty: Endocrinology Hospital Course: 71 year old man with past medical history of insulin-dependent diabetes mellitus type 1, hypothyroidism, BPH, recurrent UTIs, and depression brought in by ambulance after sustaining a mechanical fall and unable to get up on his own. History obtained at admission revealed possible passive suicidal ideation in the setting of the loss of his brother, noncompliance with his medications VSS on admission Pertinent labs on admission: WBC 16.2, H&H 11.9/36.6, sodium 125 potassium 5.4, BUN/CR 76/2.6, glucose 889, anion gap 28, positive acetone UA >75 WBCs, large hemoglobin, many bacteria He was initially admitted to the intensive care unit for management of DKA requiring insulin drip and IV fluids. Started on ceftriaxone for UTI and fluid hydration acute kidney injury. Once stable he was downgraded to general medicine and managed for the following problems Problem list: 1. Urinary retention with hydronephrosis 2. Acute on chronic kidney injury 3. Klebsiella UTI 4. Hypokalemia 5. Hypotension Hospital course: 1. Urinary retention with hydronephrosis * The patient was noted to have complaints of lower abdominal/epigastric discomfort. Follow-up bladder scan did show a distended bladder with over 800 mL requiring straight cath * Prior to this renal ultrasound obtained (01/17/2017) showed bilateral renal cysts, left sided mild to moderate hydronephrosis, nonobstructing calculi bilateral kidneys, large postvoid residual and enlarged prostate gland. * The Lemus catheter was then placed in the setting of recurrence of inability to self void with residuals in the 500s. We consulted with urologist Dr. Montaño. Current plan is to leave the Lemus catheter in place and have him follow-up as an outpatient * Repeat renal ultrasound on 01/19/2017 showed mild left hydronephrosis that had decreased in comparison with previous study 2. Acute on chronic kidney injury * Creatinine on admission was 2.5 trended down to 1.5 at discharge. Acute kidney injury resolved 3. Klebsiella UTI * Urine culture from admission grew Klebsiella oxytoca pansensitive with only resistance to ampicillin * Completed a total of 5 days ceftriaxone IV and was transitioned to Augmentin to complete a total of 14 days for complicated UTI 4. Hypokalemia * Transient drop in potassium down to 3.3 which is supplemented with oral potassium. Stable 5. Hypotension * Borderline low blood pressure during the hospital stay remained stable 6. Iron deficiency anemia * Iron studies: Iron 10L, TIBC 178L, ferritin 402 * Started the patient on iron supplementation with ferrous sulfate 325 mg BID 7. Depression with passive suicidal ideation * Patient reports living with his brother up until his for which he then moved into the [employer] that he used to work. Patient does not take his medications anymore and endorses thoughts of passive suicidality. Psych/Social work consults were placed, zoloft increased to 100mg daily and abilify was started. * Zoloft 100mg PO Daily, Abilify 2mg PO Daily started * Follow-up appointment with therapist Jolene Mathew of [facility] ([phone]) on January 29. . Insulin-dependent diabetes * Throughout the hospital course in the setting of poor oral intake adjustments were made to his long-acting and sliding scale * Endocrinology input from Dr. Peres: Levemir 4 units subcutaneous BID with sliding scale Heart Health-Aspirin 162mg PO Daily Hyperlipidemia-Atorvastatin 10mg PO Daily Hypothyroidism-Levothyroxine 75mcg PO Daily Pain Plan-Acetaminophen Diet-Diabetic Diet DVT PPx-subcutaneous heparin Code Status-DNR/DNI Allergies: Coded Allergies: NO KNOWN ALLERGIES (10/26/15) Disposition Summary Disposition Principal Diagnosis: DKA Urinary retention with hydronephrosis Additional Diagnosis: Acute kidney injury Klebsiella UTI Hypokalemia Iron deficiency anemia Depression Discharge Disposition: SNF Discharge Instructions General Discharge Information Code Status: Do Not Resucitate/Intubat Patient's Diet: Heart healthy diet Patient's Activity: As tolerated with walker Follow-Up Instructions/Appts: Please follow-up with her PCP within one week after discharge. Please follow-up with your urologist within 1 week after discharge for Lemus catheter and urinary retention management. Please follow-up with your therapist Jolene Mathew on 01/29/2017 at [facility]. Call Please follow-up with the supervisor cell room within 1 week after discharge for insulin adjustment Medications at Discharge Discharge Medications: Stop taking the following medications: Sertraline HCl (Zoloft) 50 MG TABLET ORAL DAILY Days = 30 Insulin NPL/Insulin Lispro (Humalog Mix 75-25 Vial) 100 UNIT/ML (75-25) VIAL SUB -Q SEE INSTRUCT Days = 30 Continue taking these medications: Aspirin (Ecotrin*) 81 MG TABLET. 2 Tablet ORAL DAILY Comments: Last Taken: 07/17/16 Time: 1000 Atorvastatin Calcium (Lipitor) 10 MG TABLET 1 Tablet ORAL DAILY Days = 30 Comments: Last Taken: 07/17/16 Time: 1000 Levothyroxine Sodium (Levothyroxine Sodium) 75 MCG TABLET 1 Tablet ORAL DAILY BEFORE BREAKFAST Qty = 90 Comments: Last Taken: 07/17/16 Time: 0600 Tamsulosin HCl (Flomax) 0.4 MG CAP.ER.24H 0.8 Milligram ORAL DAILY Days = 30 Comments: Last Taken: 07/17/16 Time: 1000 Start taking the following new medications: Ferrous Sulfate (Ferrous Sulfate) 325 MG (65 MG IRON) TABLET.DR 1 Tablet ORAL TWICE DAILY Qty = 60 No Refills Nystatin (Nystatin) 100,000 UNIT/GRAM CREAM..G. 1 Application On the skin TWICE DAILY as needed for RASH Qty = 1 No Refills Melatonin (Melatonin) 5 MG TABLET 1 Tablet ORAL AT BEDTIME as needed for INSOMNIA Qty = 14 No Refills Sertraline HCl (Zoloft) 100 MG TABLET 1 Tablet ORAL DAILY Qty = 30 No Refills Aripiprazole (Abilify) 2 MG TABLET 1 Tablet ORAL DAILY Qty = 30 No Refills Augmentin (Augmentin 500-125 Tablet) 500 MG-125 MG TABLET 1 Tablet ORAL TWICE DAILY Qty = 18 No Refills Copies To: PRANAV KOHLER,CASEY; XENIA GODWIN APRN; VASQUEZ KOHLER,VASILE Chris; ERIC KOHLER,GEORGINA
[2017-01-18 22:17] VITALS: BP 120/64
[2017-01-19 00:06] VITALS: BP 154/87
[2017-01-19 06:08] VITALS: BP 122/64
--- NOTE | 2017-01-19 08:16 | PN- Housestaff ---
JUANA KOHLER,[facility] 01/19/17 0816: Subjective Follow-up For: DKA GIULIANA UTI Subjective: Afebrile, stable, Saturating well on room air. Patient looked much better today. Denies any overnight events. Review of Systems Constitutional: Denies: see HPI. Objective Last 24 Hrs of Vital Signs/I&O Vital Signs Date Time Temp Pulse Resp B/P B/P Pulse O2 O2 Flow FiO2 Mean Ox Delivery Rate 01/19 1522 Room Air 01/19 1437 108/60 01/19 1344 97.6 74 20 96/60 96 01/19 0608 98.0 80 18 122/64 94 01/18 2217 98.1 84 16 120/64 94 Intake & Output 01/19 1600 01/19 0800 01/19 0000 Intake Total 250 240 300 Output Total 951 1200 900 Balance -701 -960 -600 Intake, Oral 250 240 300 Output, Stool 1 Output, Urine 950 1200 900 Physical Exam General Appearance: Alert, Oriented X3, Cooperative Other Physical Findings: General-well developed, thin elderly man appearing tired/lethargic, but in no acute distress HEENT-NCAT, PERRL, EOMI, anicteric sclera, moist mucous membranes Cardio-S1, S2 w/o m/g/r;RRR Lung-CTA bilaterally Abdomen-Soft, nontender, nondistended, bowel sounds intact Neuro-Awake and alert, oriented to person/place/time, CN II-XII grossly intact Ext-normal pulses, normal capillary refill, no cyanosis/clubbing/edema. Current Medications: Current Medications Sig/Marleny Start time Last Medication Dose Route Stop Time Status Admin Acetaminophen 650 MG Q6P PRN 01/16 1245 AC 01/18 PO 1017 Aripiprazole 2 MG DAILY 01/17 1235 AC 01/19 PO 0929 Aspirin Buffered 162 MG DAILY 01/16 1250 AC 01/19 PO 0929 Atorvastatin Calcium 10 MG 1700 01/16 1700 AC 01/18 PO 1702 Ceftriaxone Sodium 1,000 MG Q24H 01/16 1400 AC 01/19 IV 1303 Dextrose/Sodium 1,000 ML Q13H 01/19 0900 DC 01/19 Chloride IV 01/19 2159 0929 Dextrose/Sodium 1,000 ML Q13H 01/18 0730 DC 01/18 Chloride IV 0744 Ferrous Sulfate 325 MG BID 01/19 1330 AC PO Heparin Sodium 5,000 UNIT Q8 01/16 1400 AC 01/19 (Porcine) SC 1303 Insulin Aspart 0 TIDAC/HS 01/18 0800 AC 01/18 SC 2119 Insulin Detemir 4 UNITS BID 01/18 2200 AC 01/19 SC 0930 Melatonin 5 MG AT BEDTIME 01/16 2230 AC 01/18 PO 211 Nystatin 1 BRIDGETTE BID 01/17 1233 AC 01/19 TOP 0930 Potassium Chloride 60 MEQ ONCE ONE 01/18 2115 DC 01/18 PO 01/18 Sertraline HCl 100 MG DAILY 01/18 1000 AC 01/19 PO 0929 Tamsulosin HCl 0.8 MG DAILY 01/16 1308 AC 01/19 PO 0928 Last 24 Hrs of Lab/Michael Results Last 24 Hrs of Labs/Mics: Laboratory Tests 01/19/17 0725: Anion Gap 6, Estimated GFR > 60, BUN/Creatinine Ratio 46.4 H, CBC w Diff NO MAN DIFF REQ, RBC 3.63 L, MCV 88.1, MCH 29.0, RDW 15.1 H, MPV 7.6, Gran % 86.0 H, Lymphocytes % 6.6 L, Monocytes % 6.9, Eosinophils % 0.4, Basophils % 0.1, Absolute Granulocytes 8.1 H, Absolute Lymphocytes 0.6 L, Absolute Monocytes 0.7 H, Absolute Eosinophils 0, Absolute Basophils 0, PUBS MCHC 33.0 Assessment/Plan Assessment: 71 year old man with past medical history of insulin-dependent diabetes mellitus type 1, hypothyroidism, BPH, recurrent UTIs, and depression brought in by ambulance after sustaining a mechanical fall where he was unable to get up. Patient was transferred to the general medicine floor yesterday from ICU once stable for further care. #Diabetes Ketoacidosis: Resolved #Insulin-dependent Diabetes Mellitus Type 1 -Blood sugars during the past 24 hours 143-251 -Continue Levemir 4 units units SC BID per . -Novolog SSI -Accuchecks TIDAC/HS #Acute Kidney Injury - resolving (Cr down to 1.1 from 2.5) #History of Benign Prostatic Hypertrophy & Urinary Tract Infection -Ceftriaxone 1g IV Daily (for UTI) -Flomax 0.8mg PO Daily -Patient has been unable to void since yesterday. Nash catheter in place. Renal Ultrasound(01/17/17) showed Left-sided dmni-kx-akclurih hydronephrosis. -Urology consult: Repeated U/S today, shows improved hypronephrosis and bilateral nephrolithiasis. Does not recommend any urgent intervention at this time. Continue flomax and discharge with nash,will manage BPH and stones as an outpatient. #Depression / Passive Suicidality Patient reports living with his brother up until his for which he then moved into the [employer] that he used to work. Patient does not take his medications anymore and endorses thoughts of passive suicidality. Psych/Social work consults were placed, zoloft increased to 100mg daily and abilify was started. -Zoloft 100mg PO Daily -Abilify 2mg PO Daily started Heart Health-Aspirin 162mg PO Daily Hyperlipidemia-Atorvastatin 10mg PO Daily Hypothyroidism-Levothyroxine 75mcg PO Daily Pain Plan-Acetaminophen Diet-Diabetic Diet DVT PPx-subcutaneous heparin Code Status-DNR/DNI Problem List: 1. DIABETIC KETOACIDOSIS 2. Acute renal injury 3. BPH (benign prostatic hyperplasia) 4. UTI (urinary tract infection) 5. Hyperglycemia Pain Ratin Pain Location: None Pain Goal: Remain pain free Pain Plan: Pain pathway Tomorrow's Labs & Rationales: BEP(GIULIANA,Urinary retention) Consulting Request: Consulting Specialty: Endocrinology JANE AGUILAR MD 01/19/17 1133: Attending MD Review Statement Attending Statement Attending MD Statement: examined this patient, discuss w/resident/PA/STRADDLE TRUCK OPERATOR, agreed w/resident/PA/STRADDLE TRUCK OPERATOR, reviewed EMR data (avail) Attending Assessment/Plan: 71M PMH hypothyroidism, Type 1 DM, BPH admitted initially to ICU for diabetic ketoacidosis requiring insulin drip, now with closed anion gap and normalization of bicarb, course complicated by GIULIANA, urinary retention, and Klebsiella UTI. Nash catheter placed yesterday with excellent diuresis overnight. Patient feels much better. Glucose increased today and overnight >200. 1. Type 1 diabetic ketoacidosis 2. GIULIANA 3. Acute urinary retention 4. Obstructive uropathy 5. Hypoglycemia 6. Klebsiella UTI Plan - Continue on general medicine - Place Nash catheter - Urology consult - Continue Flomax - Continue Ceftriaxone - Discontinue IV fluids - Follow endocrine recommendations - Continue Levemir - Monitor renal function - Continue home medications - DVT Ppx
[2017-01-19 08:28] LABS: ABSOLUTE BASOPHIL COUNT 0 /CUMM (0.0-0.2); ABSOLUTE EOSINOPHIL COUNT 0 /CUMM (0.0-0.7); ABSOLUTE GRANULOCYTE CT 8.1 /CUMM (1.4-6.5); ABSOLUTE LYMPH COUNT 0.6 /CUMM (1.2-3.4); ABSOLUTE MONOCYTE COUNT 0.7 /CUMM (0.10-0.60); BASOPHIL % 0.1 % (0.0-2.0); EOSINOPHIL % 0.4 % (0-5); MEAN CORPUSCULAR VOLUME 88.1 FL (80.0-94.0); MEAN PLATELET VOLUME 7.6 FL (7.4-10.4); PLATELET COUNT 123 /CUMM (130-400); RBC DISTRIBUTION WIDTH 15.1 % (11.5-14.5); RED BLOOD CELL CT 3.63 /CUMM (4.70-6.10); WHITE BLOOD CELL COUNT 9.5 /CUMM (4.8-10.8)
--- NOTE | 2017-01-19 12:07 | ULTRASOUND REPORT ---
EXAMINATION: US RETROPERITONEAL COMPLETE (RENAL) CLINICAL INFORMATION: Follow-up hydronephrosis after Lemus catheter placement. COMPARISON: Renal ultrasound from 01/17/2017 TECHNIQUE: Real-time imaging of the kidneys and bladder. FINDINGS: RIGHT KIDNEY: 12.2 x 6.1 x 5.4 cm (SAG x AP x TRV). 7.1 cm simple cyst arising from the interpolar region and extending toward the lower pole. No solid renal masses. Small, approximately 0.4 cm calculus within the lower pole calyx. LEFT KIDNEY: 14 x 7.7 x 7.3 cm (SAG x AP x TRV). The kidney has normal cortical thickness and cortical echotexture. Mild left hydronephrosis has decreased/improved compared to 01/17/2017. A calyceal stone in the interpolar region is approximately 0.5 cm in size. BLADDER: Urinary bladder is emptied by the Lemus catheter and there is diffuse wall thickening of the bladder; this could represent detrusor muscle hypertrophy secondary to chronic bladder outlet pathology. IMPRESSION: 1. Bilateral nephrolithiasis. 2. Mild left hydronephrosis has decreased compared to 01/17/2017. 3. Urinary bladder wall is diffusely thickened, likely reactive to chronic bladder outlet obstruction.
--- NOTE | 2017-01-19 12:29 | Cons- Urology ---
General Information and HPI Consulting Request Date of Consult: 01/19/17 Requested By: JANE AGUILAR MD Reason for Consult: BPH WITH HYDRONEPHROSIS Source of Information: old records History of Present Illness: He is 71-year-old man with past medical history of type 1 diabetes mellitus, hypothyroidism, depression, BPH, urinary tract infection BIBA due to feeling weak and being ofund on the floor by his friends. He denied any fever, chills, chest pain, palpitations, dizziness or lightheadedness before fall. Denies loss of consciousness, weakness or numbness of any part of his body or head strike. Patient reports weight loss, decreased appetite. He wass very depressed and tearful in the ER. He complained of urinary frequency and foul-smelling urine prior to the above. 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 Used to live with his brother who and has no other family members. Denies smoking, drinking alcohol or use of illicit drugs. He stopped taking all his medications 2 months ago. Allergies/Medications Allergies: Coded Allergies: NO KNOWN ALLERGIES (10/26/15) Home Med List: Aspirin (Ecotrin*) 81 MG TABLET.DR 2 TAB PO DAILY HEART/BLOOD (Reported) Atorvastatin Calcium (Lipitor) 10 MG TABLET 1 TAB PO DAILY HYPERLIPIDEMIA Insulin NPL/Insulin Lispro (Humalog Mix 75-25 Vial) 100 UNIT/ML (75-25) VIAL 1 VIAL SQ SEE INSTRUCT DIABETES 15 UNITS BEFORE BREAKFAST 12 UNITS BEFORE DINNER MONITOR FASTING BLOOD SUGAR Levothyroxine Sodium 75 MCG TABLET 1 TAB PO DAILY AC THYROID (Reported) Sertraline HCl (Zoloft) 50 MG TABLET 1 TAB PO DAILY MENTAL HEALTH (Reported) Tamsulosin HCl (Flomax) 0.4 MG CAP.ER.24H 0.8 MG PO DAILY BPH Current Medications: Current Medications Sig/Marleny Start time Last Medication Dose Route Stop Time Status Admin Acetaminophen 650 MG Q6P PRN 01/16 1245 AC 01/18 PO 1017 Aripiprazole 2 MG DAILY 01/17 1235 AC 01/19 PO 0929 Aspirin Buffered 162 MG DAILY 01/16 1250 AC 01/19 PO 0929 Atorvastatin Calcium 10 MG 1700 01/16 1700 AC 01/18 PO 1702 Ceftriaxone Sodium 1,000 MG Q24H 01/16 1400 AC 01/18 IV 1245 Dextrose/Sodium 1,000 ML Q13H 01/19 0900 DC 01/19 Chloride IV 01/19 2159 0929 Dextrose/Sodium 1,000 ML Q13H / 0730 DC / Chloride IV 0744 Heparin Sodium 5,000 UNIT Q8 / 1400 AC 01/19 (Porcine) SC 0513 Insulin Aspart 0 TIDAC/HS 01/18 0800 AC 01/18 SC 2119 Insulin Detemir 4 UNITS BID 01/18 2200 AC 01/19 SC 0930 Melatonin 5 MG AT BEDTIME 01/16 2230 AC 01/18 PO 2118 Nystatin 1 BRIDGETTE BID 01/17 1233 AC 01/19 TOP 0930 Potassium Chloride 60 MEQ ONCE ONE 01/18 2115 DC 01/18 PO 01/18 Sertraline HCl 100 MG DAILY 01/18 1000 AC 01/19 PO 0929 Tamsulosin HCl 0.8 MG DAILY 01/16 1308 AC 01/19 PO 0928 Past History Medical History Blood Transfusion Hx: No Neurological: NONE EENT: NONE Cardiovascular: NONE Respiratory: NONE Gastrointestinal: NONE Hepatic: NONE Renal: benign prost hyperplasia, FREQUENT UTI'S Musculoskeletal: falls Psychiatric: depression Endocrine: diabetic ketoacidosis, hypothyroidism, DM type 1 Blood Disorders: NONE Cancer(s): SKIN CANCER INTERNAL SALES/Reproductive: NONE Surgical History Pertinent Surgical History: HERNIA REPAIR Family History Relations & Conditions If Any: MOTHER (DM, Alcoholic). FH: diabetes mellitus FATHER (Alcoholic). Psychosocial History Where Do You Live? Other Who Do You Live With? [employer] Services at Home: None Smoking Status: Former Smoker ETOH Use: denies use Illicit Drug Use: denies illicit drug use Functional Ability ADLs Independent: dressing, eating, toileting, bathing. Ambulation: independent IADLs Independent: shopping, housework, finances, food prep, telephone, medication admin. Needs Assist: transportation. Review of Systems Review of Systems Constitutional: Reports: weakness. EENTM: Reports: no symptoms. Cardiovascular: Reports: no symptoms. Respiratory: Reports: no symptoms. GI: Reports: diarrhea. Genitourinary: Reports: frequency. Musculoskeletal: Reports: no symptoms. Skin: Reports: no symptoms. Neurological/Psychological: Reports: no symptoms. Hematologic/Endocrine: Reports: no symptoms. Immunologic/Allergic: Reports: no symptoms. Exam & Diagnostic Data Vital Signs and I&O Vital Signs Date Time Temp Pulse Resp B/P B/P Pulse O2 O2 Flow FiO2 Mean Ox Delivery Rate 01/20 608 98.0 80 18 122/64 94 01/18 2217 98.1 84 16 120/64 94 01/18 1428 97.6 74 20 110/58 95 Room Air Intake & Output 01/19 0800 01/19 0000 01/18 1600 01/18 0800 01/18 0000 Intake Total 055 501 5031 1125 1380 Output Total 1200 900 750 725 200 Balance -960 -600 140 797 5633 Intake, IV 600 1000 900 Intake, Oral 240 300 420 125 480 Output, Urine 1200 900 750 725 200 Physical Exam: asleep abd nontender, ND/NT Nash in place with cloudy urine output Physical Exam General Appearance: thin Head: atraumatic, normal appearance Eyes: Bilateral: normal appearance. Ears, Nose, Throat: normal ENT inspection Respiratory: no respiratory distress Gastrointestinal: soft, non-tender Rectal: deferred Extremities: normal inspection Skin: intact, warm/dry Last 24 Hours of Labs: Laboratory Tests 01/19 725 Chemistry Sodium (137 - 145 mmol/L) 134 L Potassium (3.5 - 5.1 mmol/L) 4.3 Chloride (98 - 107 mmol/L) 103 Carbon Dioxide (22 - 30 mmol/L) 24 Anion Gap (5 - 16) 6 BUN (9 - 20 mg/dL) 51 H Creatinine (0.7 - 1.2 mg/dL) 1.1 Estimated GFR (>60 ml/min) > 60 BUN/Creatinine Ratio (7 - 25 %) 46.4 H Hematology CBC w Diff NO MAN DIFF REQ WBC (4.8 - 10.8 /CUMM) 9.5 RBC (4.70 - 6.10 /CUMM) 3.63 L Hgb (14.0 - 18.0 G/DL) 10.6 L Hct (42 - 52 %) 32.0 L MCV (80.0 - 94.0 FL) 88.1 MCH (27.0 - 31.0 PG) 29.0 RDW (11.5 - 14.5 %) 15.1 H Plt Count (130 - 400 /CUMM) 123 L MPV (7.4 - 10.4 FL) 7.6 Gran % (42.2 - 75.2 %) 86.0 H Lymphocytes % (20.5 - 51.1 %) 6.6 L Monocytes % (1.7 - 9.3 %) 6.9 Eosinophils % (0 - 5 %) 0.4 Basophils % (0.0 - 2.0 %) 0.1 Absolute Granulocytes (1.4 - 6.5 /CUMM) 8.1 H Absolute Lymphocytes (1.2 - 3.4 /CUMM) 0.6 L Absolute Monocytes (0.10 - 0.60 /CUMM) 0.7 H Absolute Eosinophils (0.0 - 0.7 /CUMM) 0 Absolute Basophils (0.0 - 0.2 /CUMM) 0 PUBS MCHC (33.0 - 37.0 G/DL) 33.0 Imaging Results: Renal US 01/19/17 1. Bilateral nephrolithiasis. 2. Mild left hydronephrosis has decreased compared to 01/17/2017. 3. Urinary bladder wall is diffusely thickened, likely reactive to chronic bladder outlet obstruction. Assessment/Plan Assessment/Plan Pt with BPH and urinary retention s/p nash placement. recommend cont nash and flomax. Discharge with nash with FU with Urology. Will manage BPH and stones as an outpatient. No need for urgent intervention. Consult Acknowledgment - Thank you for your consult request.
--- NOTE | 2017-01-19 12:30 | PN- Diabetes ---
Assessment/Plan Assessment: Patient has had hx of major depression, DM type 1 and hypothyroidism. He stopped all his medications on his own after he became very depressed and he will be admitted to ICU for DKA. He was treated with IV fluids and insulin drip and his DKA resolved. But his creatinine level remains elevated. Patient would like to eat meals. He was off on thyroid medication for a while as well. Repeat TSH was 4.03 and free T4 0.87. His thyroid medication has been held. Levemir was decreased to 4 units twice a day, Novolog coverage before meals was adjusted. IVF was discontinued. His FSGs were 77, 159, 172, 251, 228 and 167. Plan: continue the current insulin regimen for now monitor FSGs; will follow. Subjective Subjective: He feels better this morning. Objective Last 24 Hrs of Vital Signs/I&O Vital Signs Date Time Temp Pulse Resp B/P B/P Pulse O2 O2 Flow FiO2 Mean Ox Delivery Rate 01/19 0608 98.0 80 18 122/64 94 01/18 2217 98.1 84 16 120/64 94 01/18 1428 97.6 74 20 110/58 95 Room Air Intake & Output 01/19 1600 01/19 0800 01/19 0000 Intake Total 240 300 Output Total 1200 900 Balance -960 -600 Intake, Oral 240 300 Output, Urine 1200 900 Findings Pertinent Lab/Michael Results: Laboratory Tests 01/19 0725 Chemistry Sodium (137 - 145 mmol/L) 134 L Potassium (3.5 - 5.1 mmol/L) 4.3 Chloride (98 - 107 mmol/L) 103 Carbon Dioxide (22 - 30 mmol/L) 24 Anion Gap (5 - 16) 6 BUN (9 - 20 mg/dL) 51 H Creatinine (0.7 - 1.2 mg/dL) 1.1 Estimated GFR (>60 ml/min) > 60 BUN/Creatinine Ratio (7 - 25 %) 46.4 H Hematology CBC w Diff NO MAN DIFF REQ WBC (4.8 - 10.8 /CUMM) 9.5 RBC (4.70 - 6.10 /CUMM) 3.63 L Hgb (14.0 - 18.0 G/DL) 10.6 L Hct (42 - 52 %) 32.0 L MCV (80.0 - 94.0 FL) 88.1 MCH (27.0 - 31.0 PG) 29.0 RDW (11.5 - 14.5 %) 15.1 H Plt Count (130 - 400 /CUMM) 123 L MPV (7.4 - 10.4 FL) 7.6 Gran % (42.2 - 75.2 %) 86.0 H Lymphocytes % (20.5 - 51.1 %) 6.6 L Monocytes % (1.7 - 9.3 %) 6.9 Eosinophils % (0 - 5 %) 0.4 Basophils % (0.0 - 2.0 %) 0.1 Absolute Granulocytes (1.4 - 6.5 /CUMM) 8.1 H Absolute Lymphocytes (1.2 - 3.4 /CUMM) 0.6 L Absolute Monocytes (0.10 - 0.60 /CUMM) 0.7 H Absolute Eosinophils (0.0 - 0.7 /CUMM) 0 Absolute Basophils (0.0 - 0.2 /CUMM) 0 PUBS MCHC (33.0 - 37.0 G/DL) 33.0
[2017-01-19 13:44] VITALS: BP 96/60
[2017-01-19] MEDS ORDERED: FERROUS SULFAT325 M2 PO (14:15)
[2017-01-19] MEDS ORDERED: MELATONIN5 M7 PO (14:15)
[2017-01-19] MEDS ORDERED: NYSTATIN15 G1 TOP (14:15)
[2017-01-19] MEDS ORDERED: ABILIFY2 MG PO (14:15)
[2017-01-19] MEDS ORDERED: AUGMENTIN 500-1 EACH PO (14:15)
[2017-01-19] MEDS ORDERED: ZOLOFT100 M1 PO (14:15)
--- NOTE | 2017-01-19 14:34 | Patient Discharge Instructions ---
Discharge Instructions General Discharge Information You were seen/treated for: Diabetic Ketoacidosis Urinary tract infection Special Instructions: Follow up with Dr. Montaño for Urinary Retention at [address] [facility] 1st floor at 2:00pm. . Please follow up with your PCP in 1 week. Please follow up with Dr. Peres In 1 week. Diet Continue normal diet: Yes Recommended Diet: Diabetic Acute Coronary Syndrome Inclusion Criteria At DC or during hospital stay patient has or had the following: ACS DIAGNOSIS No Discharge Core Measures Meds if any: Prescribed or Continued at Discharge Meds if any: NOT Prescribed or Continued at Discharge Congestive Heart Failure Inclusion Criteria At DC or during hospital stay patient has or had the following: CHF DIAGNOSIS No Discharge Core Measures Meds if any: Prescribed or Continued at Discharge Meds if any: NOT Prescribed or Continued at Discharge Cerebrovascular accident Inclusion Criteria At DC or during hospital stay patient has or had the following: CVA/TIA Diagnosis No Discharge Core Measures Meds if any: Prescribed or Continued at Discharge Meds if any: NOT Prescribed or Continued at Discharge Venous thromboembolism Inclusion Criteria VTE Diagnosis No VTE Type NONE VTE Confirmed by (Test) NONE Discharge Core Measures - Per Current guidelines, there needs to be overlap - treatment for the first 5 days of Warfarin therapy. - If discharged on Warfarin prior to 5 days of - overlap therapy, the patient will need to be - assessed for post discharge needs including - *Post discharge parental anticoagulation - *Warfarin and/or parental anticoagulation education - *Follow up date to check INR post discharge At least 5 days overlap therapy as Inpatient No Meds if any: Prescribed or Continued at Discharge Note: Overlap Therapy is Warfarin and Anticoagulant Meds if any: NOT Prescribed or Continued at Discharge
[2017-01-19 14:37] VITALS: BP 108/60
[2017-01-19 22:35] VITALS: BP 124/70
--- NOTE | 2017-01-20 04:14 | PN- Housestaff ---
See Addendum Subjective Follow-up For: Urine obstruction with hydronephrosis Acute kidney injury Klebsiella UTI Hypokalemia Hypotension Hypoglycemia Complaints: no complaints Subjective: Interval history: Overnight there were no acute events. This morning the patient states that he was able to sleep well through most of the night. He denies any fevers, chills, shortness of breath, chest pain, palpitations, nausea, abdominal pain, pain from the Lemus catheter. Last bowel movement was yesterday with no difficulties. Review of Systems Constitutional: Reports: see HPI. EENTM: Reports: no symptoms. Cardiovascular: Reports: no symptoms. Respiratory: Reports: no symptoms. Gastrointestinal: Reports: no symptoms. Genitourinary: Reports: see HPI. Musculoskeletal: Reports: no symptoms. Objective Last 24 Hrs of Vital Signs/I&O Vital Signs Date Time Temp Pulse Resp B/P B/P Pulse O2 O2 Flow FiO2 Mean Ox Delivery Rate 01/20 0609 97.5 74 18 112/64 95 01/19 2235 97.5 81 18 124/70 93 Room Air 01/19 1522 Room Air 01/19 1437 108/60 01/19 1344 97.6 74 20 96/60 96 Intake & Output 01/20 0800 07/08 0000 01/19 1600 Intake Total 360 250 Output Total 350 1300 951 Balance 10 -1300 -701 Intake, Oral 360 250 Output, Stool 1 Output, Urine 350 1300 950 Physical Exam General Appearance: Alert, Cooperative, No Acute Distress Skin: No Breakdown Skin Temp/Moisture Exam: Warm/Dry HEENT: Mucous Membr. moist/pink Cardiovascular: Regular Rate, Normal S1, Normal S2 Lungs: Normal Air Movement Abdomen: Normal Bowel Sounds, Soft, No Tenderness Neurological: Normal Speech, Normal Tone Extremities: No Edema, Normal Pulses Vascular: Pulses Symmetrical Other Physical Findings: Lemus catheter in place. Lines/Diet/Fluids Lemus Still Needed? Yes Assessment/Plan Assessment: 71 year old man with past medical history of insulin-dependent diabetes mellitus type 1, hypothyroidism, BPH, recurrent UTIs, and depression brought in by ambulance after sustaining a mechanical fall and unable to get up on his own. History obtained at admission revealed possible passive suicidal ideation in the setting of the loss of his brother, noncompliance with his medications VSS on admission Pertinent labs on admission: WBC 16.2, H&H 11.9/36.6, sodium 125 potassium 5.4, BUN/CR 76/2.6, glucose 889, anion gap 28, positive acetone UA >75 WBCs, large hemoglobin, many bacteria He was initially admitted to the intensive care unit for management of DKA requiring insulin drip and IV fluids. Started on ceftriaxone for UTI and fluid hydration acute kidney injury. Once stable he was downgraded to general medicine and managed for the following problems Problem list: 1. Urinary retention with hydronephrosis 2. Acute on chronic kidney injury 3. Klebsiella UTI 4. Hypokalemia 5. Hypotension Plan: 1. Urinary retention with hydronephrosis * The patient was noted to have complaints of lower abdominal/epigastric discomfort. Follow-up bladder scan did show a distended bladder with over 800 mL requiring straight cath * Prior to this renal ultrasound obtained (01/17/2017) showed bilateral renal cysts, left sided mild to moderate hydronephrosis, nonobstructing calculi bilateral kidneys, large postvoid residual and enlarged prostate gland. * The Lemus catheter was then placed in the setting of recurrence of inability to self void with residuals in the 500s. We consulted with urologist Dr. Montaño. Current plan is to leave the Lemus catheter in place and have him follow-up as an outpatient * Repeat renal ultrasound on 01/19/2017 showed mild left hydronephrosis that had decreased in comparison with previous study 2. Acute on chronic kidney injury * Creatinine on admission was 2.5 trended down to 1.5 at discharge. Acute kidney injury resolved 3. Klebsiella UTI * Urine culture from admission grew Klebsiella oxytoca pansensitive with only resistance to ampicillin * Completed a total of 5 days ceftriaxone IV and was transitioned to Augmentin liter total of 14 days for complicated UTI 4. Hypokalemia * Transient drop in potassium down to 3.3 which is supplemented with oral potassium. Stable 5. Hypotension * Borderline low blood pressure during the hospital stay remained stable 6. Iron deficiency anemia * Iron studies: Iron 10L, TIBC 178L, ferritin 402 * Started the patient on iron supplementation with ferrous sulfate 325 mg BID 7. 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 Patient does not take his medications anymore and endorses thoughts of passive suicidality. Psych/Social work consults were placed, zoloft increased to 100mg daily and abilify was started. * Zoloft 100mg PO Daily, Abilify 2mg PO Daily started * Follow-up appointment with therapist Jolene Mathew of [facility] ([phone]) on January 29. 8. Insulin-dependent diabetes * Throughout the hospital course in the setting of poor oral intake adjustments were made to his long-acting and sliding scale * Endocrinology input from Dr. Peres: Levemir 4 units subcutaneous BID with sliding scale Heart Health-Aspirin 162mg PO Daily Hyperlipidemia-Atorvastatin 10mg PO Daily Hypothyroidism-Levothyroxine 75mcg PO Daily Pain Plan-Acetaminophen Diet-Diabetic Diet DVT PPx-subcutaneous heparin Code Status-DNR/DNI Problem List: 1. Urinary retention due to benign prostatic hyperplasia 2. Lemus catheter in place 3. UTI due to Klebsiella species 4. Acute renal injury 5. Iron deficiency anemia 6. Depression 7. Diabetes Pain Ratin Pain Location: NA Pain Goal: Pain 4 or less Pain Plan: PAin pathway Tomorrow's Labs & Rationales: None DVT/Prophylaxis: mechanical Consulting Request: Consulting Specialty: Endocrinology Discharge Plan Discharge Disposition: STR/NH Stable for Discharge? Yes Anticipated Discharge (Day): today If Discharged Today/In 24 Hrs: enter antc discharge ord, W-10/discharge paper done, DC summary done, CMR done
[2017-01-20 06:09] VITALS: BP 112/64
[2017-01-20] MEDS ORDERED: LEVEMIR100 UNIT/1 SC (09:06)
[2017-01-20] MEDS ORDERED: NOVOLOG100 UNIT/2 SC (09:06)
--- NOTE | 2017-01-20 13:34 | PN- Diabetes ---
Assessment/Plan Assessment: Patient has had hx of major depression, DM type 1 and hypothyroidism. He stopped all his medications on his own after he became very depressed and he will be admitted to ICU for DKA. He was treated with IV fluids and insulin drip and his DKA resolved. He was off on thyroid medication for a while as well. Repeat TSH was 4.03 and free T4 0.87. His thyroid medication has been held. Levemir was decreased to 4 units twice a day, Novolog coverage before meals was adjusted. IVF was discontinued. His FSGs were 288, 149 and 144. He is going to rehab today. Plan: continue the current insulin regimen for now; the discharge plan for DM will be the same insulin regimen as inpatient. f/u in office after discharge. Subjective Subjective: He feels better. Objective Last 24 Hrs of Vital Signs/I&O Vital Signs Date Time Temp Pulse Resp B/P B/P Pulse O2 O2 Flow FiO2 Mean Ox Delivery Rate 01/20 0913 130/80 / 0609 97.5 74 18 112/64 95 01/19 2235 97.5 81 18 124/70 93 Room Air 01/19 1522 Room Air 01/19 1437 108/60 01/19 1344 97.6 74 20 96/60 96 Intake & Output 01/20 1600 01/20 0800 01/20 0000 Intake Total 360 Output Total 680 664 0686 Balance -250 10 -1300 Intake, Oral 360 Output, Urine 228 922 9572
[2017-01-20 14:08] VITALS: BP 130/80
[2017-01-20 14:24] VITALS: BP 101/61
== END 2017-01-20 15:10 | DRG 638 ==
LOC: ERH 10:14 → CRI 11:46 → ERHI 11:46 → 2NB 11:46 → ENRESERV 13:35 → ENTRNSPT 15:29 → EDTRNSPTSTS 15:35 → CRI 15:47 → CMPTRNSPT 16:27 → 2NB 01-17 14:02 → ENPENDDIS 01-20 14:12 → 2NB 01-20 15:10
PROVIDERS: Emergency Medicine; Internal Medicine; Internal Medicine Interventional Cardiology; ADMIT Internal Medicine
DX: E10.10 Type 1 diabetes mellitus with ketoacidosis without coma (principal); N39.0 Urinary tract infection, site not specified; N17.9 Acute kidney failure, unspecified; F33.2 Major depressive disorder, recurrent severe without psychotic features; E10.649 Type 1 diabetes mellitus with hypoglycemia without coma; R45.851 Suicidal ideations; F33.9 Major depressive disorder, recurrent, unspecified; E87.1 Hypo-osmolality and hyponatremia; N13.30 Unspecified hydronephrosis; N13.8 Other obstructive and reflux uropathy; E87.5 Hyperkalemia; E03.9 Hypothyroidism, unspecified; Z66 Do not resuscitate; B96.1 Klebsiella pneumoniae [K. pneumoniae] as the cause of diseases classified elsewhere; Z79.4 Long term (current) use of insulin; D50.9 Iron deficiency anemia, unspecified; N40.1 Benign prostatic hyperplasia with lower urinary tract symptoms
CPT/HCPCS: 2NSBP; CCU; 36415; 76775; 81001; 82436; 87040; 87086; 93005; 93010; 97110-GO; 97116-GO; 97161-GP; 97530-GO; J0696; J1644; J1815; J7042

== ENCOUNTER 2017-07-25 13:15 | Emergency (ER) | payer OTHER, MEDICARE ==
[~2017-07-25] VITALS: Ht 175.3 cm; Wt 73.5 kg
[~2017-07-25 13:15] MED LIST changes: +ABILIFY2 MG PO; +AUGMENTIN 500-1 EACH PO; +FERROUS SULFAT325 M2 PO; +LEVEMIR100 UNIT/1 SC; +MELATONIN5 M7 PO; +NYSTATIN15 G1 TOP; +ZOLOFT100 M1 PO
[2017-07-25 15:59] LABS: ABSOLUTE BASOPHIL COUNT 0 /CUMM (0.0-0.2); ABSOLUTE EOSINOPHIL COUNT 0.2 /CUMM (0.0-0.7); ABSOLUTE GRANULOCYTE CT 3.8 /CUMM (1.4-6.5); ABSOLUTE LYMPH COUNT 1.4 /CUMM (1.2-3.4); ABSOLUTE MONOCYTE COUNT 0.5 /CUMM (0.10-0.60); BASOPHIL % 0.4 % (0.0-2.0); EOSINOPHIL % 2.6 % (0-5); GRANULOCYTE % 64.9 % (42.2-75.2); HEMATOCRIT 36.5 % (42-52); MEAN CORPUSCULAR HGB 28.4 PG (27.0-31.0); MEAN CORPUSCULAR HGB CONC 33.7 G/DL (33.0-37.0); MEAN CORPUSCULAR VOLUME 84.3 FL (80.0-94.0); MEAN PLATELET VOLUME 7.4 FL (7.4-10.4); PLATELET COUNT 223 /CUMM (130-400); RBC DISTRIBUTION WIDTH 13.4 % (11.5-14.5); RED BLOOD CELL CT 4.32 /CUMM (4.70-6.10); WHITE BLOOD CELL COUNT 5.8 /CUMM (4.8-10.8)
--- NOTE | 2017-07-25 16:04 | ED GENERAL ADULT ---
History of Present Illness General Chief Complaint: General Adult Stated Complaint: SIB WALK IN FOR HIGH BLOOD SUGAR Source: patient Exam Limitations: no limitations Vital Signs & Intake/Output Vital Signs & Intake/Output Vital Signs Date Time Temp Pulse Resp B/P B/P Pulse O2 O2 Flow FiO2 Mean Ox Delivery Rate 07/25 1909 97.4 74 18 119/60 99 07/25 1345 97.8 80 18 151/78 97 Room Air Allergies Coded Allergies: NO KNOWN ALLERGIES (10/26/15) Reconcile Medications Aripiprazole 5 MG TABLET 1 TAB PO DAILY MENTAL HEALTH (Reported) Aspirin (Ecotrin*) 81 MG TABLET.DR 2 TAB PO QPM HEART/BLOOD (Reported) Atorvastatin Calcium (Lipitor) 10 MG TABLET 1 TAB PO DAILY HYPERLIPIDEMIA Ferrous Sulfate 325 MG (65 MG IRON) TABLET 1 TAB PO DAILY SUPPLEMENT ( Reported) Finasteride 5 MG TABLET 1 TAB PO DAILY PROSTATE (Reported) Insulin Aspart Protam & Aspart (Novolog Mix 70-30 Vial) 100 UNIT/ML (70-30) VIAL 10 UNITS SC BID DM (Reported) Levothyroxine Sodium 75 MCG TABLET 1 TAB PO DAILY AC THYROID (Reported) Melatonin 5 MG TABLET 1 TAB PO AT BEDTIME PRN INSOMNIA Sennosides (Senna) 8.6 MG TABLET 2 TAB PO QPM GI (Reported) Sertraline HCl (Zoloft) 100 MG TABLET 1 TAB PO DAILY DEPRESSION Tamsulosin HCl (Flomax) 0.4 MG CAP.ER.24H 0.8 MG PO DAILY BPH Triage Note: PATIENT TO ER FOR HYPERGLYCEMIA PER FAMILY, FSG > 600. PER FAMILY GLUCOSE HAS BEEN VARIABLE 200-500 X 1 WEEK. PATIENT STATES HE HAS BEEN FEELING "BLAH". + DIARRHEA. POLYURIA. Triage Nurses Notes Reviewed? yes Onset: Abrupt Duration: day(s): (FEW) Timing: recent history Injury Environment: home Severity: mild No Modifying Factors: none HPI: 71 year old male with history of IDDM presents from home with elevated BG x 1 week. Last night it was 500 and woke up this morning with fasting glucose 200. He used to see dr hall and had sugars regulated but states that his GP changed the insulin and he thinks that has affected it. No chest pain, sob, abdominal pain nausea or vomiting. Mild diarrhea. No confusion. (Josie KOHLER,Gladys) Past History Travel History Traveled to [place] past 21 day No Medical History Any Pertinent Medical History? see below for history Neurological: NONE EENT: NONE Cardiovascular: NONE Respiratory: NONE Gastrointestinal: NONE Hepatic: NONE Renal: benign prost hyperplasia, FREQUENT UTI'S Musculoskeletal: falls Psychiatric: depression Endocrine: diabetic ketoacidosis, hypothyroidism, DM type 1 Blood Disorders: NONE Cancer(s): SKIN CANCER PUBLIC HEALTH DENTIST/Reproductive: NONE History of MRSA: No History of VRE: No History of CDIFF: No Tetanus Vaccine: Surgical History Surgical History: HERNIA REPAIR Psychosocial History Who do you live with Homeless Services at Home None What is your primary language Sami Tobacco Use: Never used Family History Family History, If Any: MOTHER (DM, Alcoholic). FH: diabetes mellitus FATHER (Alcoholic). Hx Contributory? No (Gladys Galindo MD) Review of Systems Review of Systems Constitutional: Denies: chills, fever. EENTM: Reports: no symptoms. Respiratory: Reports: no symptoms. Cardiovascular: Denies: chest pain, orthopena, palpitations, peripheral edema. GI: Denies: abdominal pain, diarrhea, nausea, vomiting. Genitourinary: Reports: frequency. Denies: discharge, dysuria, hematuria, hesitation, pain. Musculoskeletal: Reports: no symptoms. Skin: Reports: no symptoms. Neurological/Psychological: Reports: no symptoms. Hematologic/Endocrine: Reports: polyuria. Denies: bruising, bleeding, polydipsia. Immunologic/Allergic: Denies: splenectomy, HIV/AIDS. All Other Systems: Reviewed and Negative (Gladys Galindo MD) Physical Exam Physical Exam General Appearance: well developed/nourished, alert, awake, mild distress, thin Head: atraumatic, normal appearance Eyes: Bilateral: normal appearance, PERRL, EOMI. Ears, Nose, Throat: normal pharynx, hearing grossly normal Neck: normal inspection, supple, full range of motion Respiratory: normal breath sounds, chest non-tender, no respiratory distress Cardiovascular: regular rate/rhythm Peripheral Pulses: 2+ radial (R), 2+ radial (L) Gastrointestinal: normal bowel sounds, soft, non-tender Extremities: normal inspection, normal capillary refill, normal range of motion, no edema Neurologic/Psych: no motor/sensory deficits, awake, alert, oriented x 3 Skin: intact, normal color, warm/dry Core Measures ACS in differential dx? No CVA/TIA Diagnosis: No Sepsis Present: No Sepsis Focused Exam Completed? No (Gladys Galindo MD) Progress Differential Diagnoses I considered the following diagnoses in my evaluation of the patient: [ HYPERGLYCEMIA, DKA] Plan of Care: Orders Procedure Date/time Status Add-on Test (ER Only) 07/25 1915 Active MIXED VENOUS BLOOD GAS (GEN) 07/25 1526 Active EKG 07/25 1453 Active COMPREHENSIVE METABOLIC PANEL 07/25 1451 Complete CBC WITHOUT DIFFERENTIAL 07/25 1451 Complete ACETONE 07/25 1451 Complete URINALYSIS 07/25 1411 Complete Laboratory Tests 07/25/17 1530: Anion Gap 15, Estimated GFR 54 L, BUN/Creatinine Ratio 16.2, Glucose 518 *H, Calcium 9.8, Total Bilirubin 0.6, AST 19, ALT 26, Alkaline Phosphatase 125, Total Protein 7.6, Albumin 4.5, Globulin 3.1, Albumin/Globulin Ratio 1.5, CBC w Diff NO MAN DIFF REQ, RBC 4.32 L, MCV 84.3, MCH 28.4, RDW 13.4, MPV 7.4, Gran % 64.9, Lymphocytes % 23.3, Monocytes % 8.8, Eosinophils % 2.6, Basophils % 0.4, Absolute Granulocytes 3.8, Absolute Lymphocytes 1.4, Absolute Monocytes 0.5, Absolute Eosinophils 0.2, Absolute Basophils 0, PUBS MCHC 33.7, Acetone Level NEGATIVE 07/25/17 1410: Urine Color YEL, Urine Clarity CLEAR, Urine pH 6.0, Ur Specific [place] 1.010, Urine Protein NEG, Urine Ketones NEG, Urine Nitrite NEG, Urine Bilirubin NEG, Urine Urobilinogen 0.2, Ur Leukocyte Esterase NEG, Ur Microscopic EXAM NOT REQUIRED, Urine Hemoglobin NEG, Urine Glucose >=1000 H Initial ED EKG: none Hand-Off Endorsed To: Trever Hameed MD Endorsed Time: 1915 Pending: other (REPEAT GLUCOSE) (Gladys Galindo MD) Comments: FBS 126 after treatment of NS and insulin. (Trever Hameed MD) Departure Departure Disposition: HOME OR SELF CARE Condition: Stable Clinical Impression Primary Impression: Hyperglycemia Referrals: Elma KOHLER,Tito Chris (PCP/Family) Additional Instructions: CALL DR HALL FOR FOLLOW UP IN THE OFFICE AND TO ADJUST YOUR MEDICATIONS RETURN TO THE ER FOR ANY CHANGING OR WORSENING SYMPTOMS Departure Forms: Customer Survey General Discharge Information (Gladys Galindo MD) Departure Time of Disposition: 1929 (Yoseph KOHLER,Trever) Critical Care Note Critical Care Note Critical Care Time: non-applicable (Gladys Galindo MD)
[2017-07-25] MEDS ORDERED: ARIPIPRAZOLE5 M1 PO (17:14)
[2017-07-25] MEDS ORDERED: FERROUS SULFAT325 M3 PO (17:15)
[2017-07-25] MEDS ORDERED: NOVOLOG MI100 UNIT/1 SC (17:16)
[2017-07-25] MEDS ORDERED: SERTRALINE HCL100 MG PO (17:17)
[2017-07-25] MEDS ORDERED: FINASTERIDE5 M1 PO (17:17)
[2017-07-25] MEDS ORDERED: SENNA8.6 M3 PO (17:18)
[2017-07-25 19:55] VITALS: BP 126/72
== END 2017-07-25 19:55 ==
LOC: ERH 13:15
PROVIDERS: Physician Assistant Medical
DX: E10.65 Type 1 diabetes mellitus with hyperglycemia (principal)
CPT/HCPCS: 81003; 93005; 93010; 96372; 96374; J1815

== ENCOUNTER → 2017-10-24 | Day surgery (SDC) | payer OTHER ==
[~2017-10-24] VITALS: Ht 175.3 cm; Wt 86.2 kg
[~2017-10-24] MED LIST changes: +ARIPIPRAZOLE5 M1 PO; +FERROUS SULFAT325 M3 PO; +FINASTERIDE5 M1 PO; +SENNA8.6 M3 PO; +SERTRALINE HCL100 MG PO
--- NOTE | 2017-10-24 08:40 | Operative Report ---
Operative/Inv Procedure Report Surgery Date: 10/24/17 Name of Procedure: Cataract extraction lens implantation right eye Pre-Operative Diagnosis: Age-related cataract right eye 20/200 vision Post-Operative Diagnosis: Same Estimated Blood Loss: none Surgeon/Box Car Washer: Alexi KOHLER,Fco Sy Anesthesia: local monitored anesthesi Complications: None Operative/Procedure Note Note: The patient was brought to the operating room standard monitoring equipment was attached the patient was prepped and draped in the usual fashion for intraocular surgery. A lid speculum was placed to retract the lids. The case was begun by making 1 partial-thickness corneal relaxing incision at 85. A temporal incision with a 2.4 mm keratome. The eye was stabilized with a Pandey ring during this incision. 1 mL of non-preserved lidocaine was introduced into the anterior chamber to provide anesthesia. The anterior chamber was then filled and deepened with viscoelastic. A curvilinear capsulorrhexis was achieved using a 30-gauge needle and is a cystotome and capsulorrhexis was finished using a Utrata forceps. A second or paracentesis incision was made temporally with a 1 mm MVR blade. The lens was then hydrodissected with balanced salt solution and found to be rotatable. The lens was emulsified using phacoemulsification and a modified four-quadrant cracking technique. The residual cortical material was removed using automated irrigation and aspiration and as much of the anterior capsular rim was cleaned as well as possible. The posterior capsule was cleaned first with the automated machine on a low setting and then manually with a Dante squeegee. The capsular bag was deepened with viscoelastic. The lens a SA60 WF 19.5 Diopter placed into the bag under direct visualization and rotated so that the haptics were at 12 and 6:00. Viscoelastic was then removed from the eye by flushing it out and then by automated irrigation and aspiration. The eye was pressurized to a normal tone. 1/10 of a cc of cefuroxime solution was introduced into the anterior chamber to provide antibiotic prophylaxis. The wounds were sealed by hydrating the stroma adjacent to them and the eye was left at a proper tone after the wounds were checked and found not to be leaking. The lid speculum was removed from the orbit. Antibiotic and steroid drops were placed on the eye and then the eye was shielded. Monitoring equipment was removed from the patient and the patient was removed from the operative suite to the holding area. The patient tolerated the procedure well and will be seen in the office tomorrow.
== END ==
LOC: STS 01:00
DX: H25.9 Unspecified age-related cataract (principal); I10 Essential (primary) hypertension; E11.9 Type 2 diabetes mellitus without complications; Z79.4 Long term (current) use of insulin; E07.9 Disorder of thyroid, unspecified
CPT/HCPCS: J2250; V2632

== ENCOUNTER → 2017-11-06 | Day surgery (SDC) | payer OTHER ==
[~2017-11-06] VITALS: Ht 175.3 cm; Wt 86.2 kg
--- NOTE | 2017-11-06 09:10 | Operative Report ---
Operative/Inv Procedure Report Surgery Date: 11/06/17 Name of Procedure: Cataract extraction lens implantation left eye Pre-Operative Diagnosis: Age related cataract left eye 20/200 vision Post-Operative Diagnosis: Same Estimated Blood Loss: none Surgeon/Inspector Government Property: Alexi KOHLER,Fco Sy Anesthesia: local monitored anesthesi Complications: None Operative/Procedure Note Note: The patient was brought to the operating room standard monitoring equipment was attached the patient was prepped and draped in the usual fashion for intraocular surgery. A lid speculum was placed to retract the lids. The case was begun by making 1 partial-thickness corneal relaxing [incision] at [90]. A temporal incision with a 2.4 mm keratome. The eye was stabilized with a Pandey ring during this incision. 1 mL of non-preserved lidocaine was introduced into the anterior chamber to provide anesthesia. The anterior chamber was then filled and deepened with viscoelastic. A curvilinear capsulorrhexis was achieved using a 30-gauge needle and is a cystotome and capsulorrhexis was finished using a Utrata forceps. A second or paracentesis incision was made temporally with a 1 mm MVR blade. The lens was then hydrodissected with balanced salt solution and found to be rotatable. The lens was emulsified using phacoemulsification and a modified four-quadrant cracking technique. The residual cortical material was removed using automated irrigation and aspiration and as much of the anterior capsular rim was cleaned as well as possible. The posterior capsule was cleaned first with the automated machine on a low setting and then manually with a Dante squeegee. The capsular bag was deepened with viscoelastic. The lens a SA60 WF 19.5 Diopter placed into the bag under direct visualization and rotated so that the haptics were at 12 and 6:00. Viscoelastic was then removed from the eye by flushing it out and then by automated irrigation and aspiration. The eye was pressurized to a normal tone. 1/10 of a cc of vancomycin solution was introduced into the anterior chamber to provide antibiotic prophylaxis. The wounds were sealed by hydrating the stroma adjacent to them and the eye was left at a proper tone after the wounds were checked and found not to be leaking. The lid speculum was removed from the orbit. Antibiotic and steroid drops were placed on the eye and then the eye was shielded. Monitoring equipment was removed from the patient and the patient was removed from the operative suite to the holding area. The patient tolerated the procedure well and will be seen in the office tomorrow.
== END ==
LOC: STS 02:22
DX: H25.9 Unspecified age-related cataract (principal); I10 Essential (primary) hypertension; E11.9 Type 2 diabetes mellitus without complications; Z79.4 Long term (current) use of insulin; E07.9 Disorder of thyroid, unspecified
CPT/HCPCS: J2250; V2632